=== PATIENT | male | born 1980 | race Caucasian/White ===

== ENCOUNTER → 2021-10-02 14:05 | Outpatient (BNVA) | payer MEDICAID, SELFPAY | PROVIDERS: Visit Provider Nurse Practitioner Family | DX: Z13.220 Encounter for screening for lipoid disorders (principal); R74.8 Abnormal levels of other serum enzymes; B19.20 Unspecified viral hepatitis C without hepatic coma; F15.11 Other stimulant abuse, in remission; Z87.898 Personal history of other specified conditions; Z86.79 Personal history of other diseases of the circulatory system | CPT/HCPCS: 80053; 80061; 80307; 85025; 86803; 87522; 87902 ==

== ENCOUNTER → 2021-10-04 10:22 | Outpatient (BNVA) | payer MEDICAID, SELFPAY | PROVIDERS: Referring Provider Nurse Practitioner Family; Visit Provider Anesthesiology Pain Medicine | DX: G89.29 Other chronic pain (principal); M47.816 Spondylosis without myelopathy or radiculopathy, lumbar region; M51.16 Intervertebral disc disorders with radiculopathy, lumbar region; F17.200 Nicotine dependence, unspecified, uncomplicated | CPT/HCPCS: 99204 ==

== ENCOUNTER 2021-10-18 11:15 | Outpatient (CLI) | payer MEDICAID, SELFPAY ==
--- NOTE | 2021-10-18 11:37 | XR_ITS ---
WS: [id number] LUMBAR SPINE TECHNIQUE: 5 views of the lumbar spine CLINICAL INFORMATION: SPONDYLOSIS WITHOUT MYELOPATHY OR RADICULOPATHY, BACK PAIN COMPARISON: None. FINDINGS: Disc space heights are well preserved. No compression fractures trace retrolisthesis L3 on L4 and L4 on L5. Disc space narrowing L4-L5 and L5-S1. Moderate facet arthropathy L5-S1 with bony foraminal tamara rowing. Retrolisthesis L5 on S1 measuring 5 mm. XR/XR lumbar spine min 4V [id number] IMPRESSION: 1. No acute compression fractures. 2. Mild disc space narrowing L4-5 and L5-S1. 3. Trace retrolisthesis L3 on L4 and L4 on L5. 4. 5 mm retrolisthesis L5 on S1 with moderate facet arthropathy.
== END 2021-10-18 11:16 | disposition home or self-care (01) ==
PROVIDERS: PCP Nurse Practitioner Family; Visit Provider Anesthesiology Pain Medicine
DX: M47.816 Spondylosis without myelopathy or radiculopathy, lumbar region (principal); M47.817 Spondylosis without myelopathy or radiculopathy, lumbosacral region
CPT/HCPCS: 72110

== ENCOUNTER → 2021-10-25 09:45 | Outpatient (BNVA) | payer MEDICAID, SELFPAY | PROVIDERS: PCP Nurse Practitioner Family; Visit Provider Anesthesiology Pain Medicine | DX: M51.16 Intervertebral disc disorders with radiculopathy, lumbar region (principal); M47.816 Spondylosis without myelopathy or radiculopathy, lumbar region; F17.200 Nicotine dependence, unspecified, uncomplicated; B18.2 Chronic viral hepatitis C | CPT/HCPCS: 82105; 86705; 86706; 87340; 99214 ==

== ENCOUNTER → 2021-11-15 13:06 | Outpatient (BNVA) | payer MEDICAID, SELFPAY | PROVIDERS: PCP Nurse Practitioner Family; Visit Provider Anesthesiology Pain Medicine | DX: M47.816 Spondylosis without myelopathy or radiculopathy, lumbar region (principal); F17.210 Nicotine dependence, cigarettes, uncomplicated | CPT/HCPCS: 64493; 64494; 64495; J3490 ==

== ENCOUNTER 2021-11-21 10:21 | Outpatient (CLI) | payer MEDICAID, SELFPAY ==
--- NOTE | 2021-11-21 10:15 | US_ITS ---
WS: [id number] ULTRASOUND ABDOMEN LIMITED CLINICAL INFORMATION: elevated liver enzymes hepatis c + COMPARISON: None. FINDINGS: Liver Size: Enlarged Craniocaudal length: 18.4 cm. Echogenicity: Coarse Surface nodularity: None. Mass (size and location): None. Normal main portal vein flow Bile ducts Intrahepatic ducts: Normal. Common bile duct diameter: 0.5 cm. Gallbladder Normal. Gallstones: None. Gallbladder sludge: None. Gallbladder wall thickening: None. Pericholecystic fluid: None. Sonographic Edwards sign: Absent. Pancreas Normal as visualized. Spleen Splenomegaly: None. Craniocaudal length: 10.5 cm. Right kidney: Normal. Hydronephrosis: None. Size: 11.9 cm x 5.6 cm x 5.5 cm. Abdominal aorta and IVC Visualized portions are normal. Ascites: None. US/US liver [id number] IMPRESSION: 1. Diffuse heterogeneous coarse hepatic echotexture with hepatomegaly. Recomme nd correlation with liver function tests. Findings suspicious for hepatocellula r disease. 2. Normal gallbladder and common bile duct. 3. No hydronephrosis in either kidney. 4. Spleen size is within normal limits measuring 10.5 cm [id number].
== END 2021-11-21 10:22 | disposition home or self-care (01) ==
LOC: RAD 10:22
PROVIDERS: PCP Nurse Practitioner Family; Visit Provider Nurse Practitioner Family
DX: R74.8 Abnormal levels of other serum enzymes (principal); B19.20 Unspecified viral hepatitis C without hepatic coma
CPT/HCPCS: 76705

== ENCOUNTER → 2022-01-02 14:37 | Outpatient (BNVA) | payer MEDICAID, SELFPAY | PROVIDERS: PCP Nurse Practitioner Family; Visit Provider Internal Medicine | DX: B18.2 Chronic viral hepatitis C (principal) | CPT/HCPCS: 80053; 87522 ==

== ENCOUNTER → 2022-03-22 10:05 | Outpatient (BNVA) | payer MEDICAID, SELFPAY | PROVIDERS: PCP Nurse Practitioner Family; Visit Provider Internal Medicine | DX: B18.2 Chronic viral hepatitis C (principal) | CPT/HCPCS: 87522 ==

== ENCOUNTER 2022-04-07 14:27 | Emergency (ER) | payer MEDICAID, SELFPAY ==
[2022-04-07 14:41] VITALS: BP 147/104; PULSE 106; RESP 16; TEMP 37.1; O2SAT 98
--- NOTE | 2022-04-07 15:53 | ED_ITS ---
HPI - Abdominal Pain General: Chief Complaint: Abdominal Pain Stated Complaint: Pain in left ADM Time Seen by Provider: 04/07/22 15:53 History of Present Illness: Mr. Hamlin is a 41-year-old gentleman with history of hepatitis C status post completion of therapy who presents to the emergency department due to right upper quadrant abdominal pain. He reports symptom onset a few months ago and has been intermittent however was previously mild. Over the past 3 days without specific known provoking event his symptoms have been much more severe. He endorses a fullness feeling in the right upper quadrant as well as generalized abdominal distention. He has generalized associated mal aise. Symptoms are worse with movement including bending over and deep inspiration. Denies pain this bad in the past. Denies signs of systemic illness. No other specific changes in health, exacerbating, or alleviating factors identified. 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 Family History Denies family history of CAD (coronary artery disease) Anesthesia complication Bleeding disorder Social History Smoking and tobacco status: current some day smoker cigarettes Alcohol intake: unknown Physical Exam Const: COMMON NORMALS: alert GENERAL APPEARANCE: cooperative and well developed HENMT: COMMON NORMALS: normocephalic and atraumatic HEAD & SCALP: normocephalic and atraumatic Eye: COMMON NORMALS: conjunctivae normal CONJUNCTIVA: Yes conjunctivae normal SCLERA: sclerae normal Neck/C-Spine: COMMON NORMALS: supple GENERAL: Yes trachea midline Resp: COMMON NORMALS: normal respiratory effort EFFORT & INSPECTION: Yes able to speak in complete sentences Cardio: COMMON NORMALS: regular rate and regular rhythm RATE: regular rate RHYTHM: regular rhythm GI: COMMON NORMALS: Soft to palpation PALPATION: Yes Soft to palpation, Yes Tenderness to palpation present (GI), No Guarding due to palpation present (GI), No Rigid due to palpation and Yes Hepatomegaly present PERCUSSION: normal to percussion Extremity: GENERAL: Yes normal exam except as noted and No edema Neuro: COMMON NORMALS: moves all extremities SENSORIUM/ORIENTATION: Yes alert and No Orientation impaired Psych: COMMON NORMALS: mental status grossly normal and Normal thought process present THOUGHT PROCESS: Normal thought process present Course ED course: - Patient was seen and evaluated by me at bedside - Patient placed on cardiac monitors, IV access obtained - Initial evaluation notable for exam as above. - Labs personally interpreted by me -Symptom treatment ordered - Labs notable for no leukocytosis, perhaps mild hemoconcentration. No acute electrolyte derangement. Transaminases are normal. Urinalysis not concerning for urinary tract infection. - Imaging notable for no lobar consolidation or pneumothorax on imaging. Ultrasound with hepatomegaly and hepatic steatosis - Upon serial reexamination after treatment the patient was improved - Based on patient history, evaluation, and testing as interpreted the most likely cause of the patient's condition is uncertain. Abdominal pain possibly secondary to hepatomegaly and hepatic steatosis as patient does have hepatomegaly on clinical exam. - The results of ED evaluation were discussed with the patient including prescriptions and/or symptomatic cares (if applicable) including appropriate and responsible use, followup plan, and return precautions. The patient verbalized understanding and felt safe for discharge. - Patient discharged in satisfactory condition. Note: Click bubbles or prepopulated ayala in note writing are used for assistance with data collection and billing and are inherently more limited than narrative and other text portions of this note. Please use narrative for additional clinical history and defer to narrative/free test for any case of contradictory information. If information appears in only free text or click bubble it should be considered present or absent as reported. Please contact note filing writer for clarifications of clinical information or contradictory information. MDM is a brief summary, contradictory or erroneous seeming information should be clarified and full note should be reviewed. Vital Signs: Vital signs: Vital Signs Temperature 98.7 F 04/07/22 14:41 Pulse Rate 102 H 04/07/22 19:10 Respiratory Rate 16 04/07/22 19:10 Blood Pressure 153/100 04/07/22 19:10 Pulse Oximetry 93 04/07/22 19:10 MDM - Abdominal Pain Medical Decision Making 41-year-old male presenting with right upper quadrant palpable mass with pain. Hepatomegaly present on exam. Ultrasound negative for other acute process. Labs without significant abnormality requiring hospitalization. Improved after treatment. Satisfactory for outpatient management and GI follow-up. Medical Records I reviewed the patient's medical records. Lab Data I reviewed the patient's lab results. : 04/07/22 17:01 04/07/22 17:01 Labs/Radiology: Radiology Impressions Abdomen Ultrasound 04/07/22 16:16 IMPRESSION: 1. Hepatomegaly and hepatic steatosis. 2. Otherwise no acute abnormalities. Chest X-Ray 04/07/22 16:16 IMPRESSION: No acute findings. Laboratory Results WBC 9.3 10^3/uL (4.0-10.0) 04/07/22 17:01 RBC 5.73 10^6/uL (4.1-5.3) H 04/07/22 17:01 Hgb 16.9 g/dL (11.7-16.6) H 04/07/22 17:01 Hct 49.2 % (42.0-52.0) 04/07/22 17:01 MCV 85.9 fl (80-94) 04/07/22 17:01 MCH 29.5 pg (28.0-34.0) 04/07/22 17:01 MCHC 34.3 g/dL (30.0-36.0) 04/07/22 17:01 RDW 12.5 % (12.1-15.1) 04/07/22 17:01 Plt Count 207 10^3/cmm (130-400) 04/07/22 17:01 MPV 11.3 fL (7.4-10.4) H 04/07/22 17:01 Neut % (Auto) 54.9 % 04/07/22 17:01 Lymph % (Auto) 33.8 % 04/07/22 17:01 [place] % (Auto) 9.3 % 04/07/22 17:01 Eos % (Auto) 1.6 % 04/07/22 17:01 Baso % (Auto) 0.2 % 04/07/22 17:01 Neut # (Auto) 5.09 10^3/uL (1.8-7.7) 04/07/22 17:01 Lymph # (Auto) 3.1 10^3/uL (0.8-4.8) 04/07/22 17:01 [place] # (Auto) 0.9 10^3/uL (0.2-0.9) 04/07/22 17:01 Eos # (Auto) 0.2 10^3/uL (0.0-0.8) 04/07/22 17:01 Baso # (Auto) 0.0 10^3/uL (0.0-0.1) 04/07/22 17:01 Nucleated RBC % (auto) 0 % 04/07/22 17: Nucleated RBCs # 0.0 /100WBC 04/07/22 17:01 Sodium 137 mmol/L (136-145) 04/07/22 17:01 Potassium 4.0 mmol/L (3.5-5.1) 04/07/22 17:01 Chloride 101 mmol/L (98-107) 04/07/22 17:01 Carbon Dioxide 23 mmol/L (22-29) 04/07/22 17:01 Anion Gap 17.0 (5-19) 04/07/22 17:01 BUN 21 mg/dL (6-20) H 04/07/22 17:01 Creatinine 0.9 mg/dL (0.7-1.2) 04/07/22 17:01 GFR Calculation 93.5 mL/min (90-130) 04/07/22 17:01 Glucose 221 mg/dL (65-115) H 04/07/22 17:01 Calculated Osmolality 294 mOsm/kg (285-295) 04/07/22 17:01 Calcium 10.3 mg/dL (8.5-10.5) 04/07/22 17:01 Total Bilirubin 0.3 mg/dL (0.15-1.2) 04/07/22 17:01 AST 33 U/L (0-40) 04/07/22 17:01 ALT 37 U/L (0-41) 04/07/22 17:01 Alkaline Phosphatase 88 IU/L (40-130) 04/07/22 17:01 NT-Pro-B Natriuret Pep 22 pg/mL (0-125) 04/07/22 17:01 Total Protein 7.8 g/dL (6.6-8.7) 04/07/22 17:01 Albumin 4.5 g/dL (3.5-5.2) 04/07/22 17:01 Globulin 3.3 g/dL (1.3-4.6) 04/07/22 17:01 Lipase 28 U/L (13-60) 04/07/22 17:01 Urine Color Yellow (Yellow) 04/07/22 18:15 Urine Appearance Turbid (CLEAR) 04/07/22 18:15 Urine pH 5 (5-7) 04/07/22 18:15 Ur Specific [place] 1.025 (1.005-1.030) 04/07/22 18:15 Urine Protein Trace (Negative) 04/07/22 18:15 Urine Glucose (UA) 1+ (Normal) H 04/07/22 18:15 Urine Ketones 1+ (Negative) H 04/07/22 18:15 Urine Blood Neg (Negative) 04/07/22 18:15 Urine Nitrate Negative (Negative) 04/07/22 18:15 Urine Bilirubin Neg (Negative) 04/07/22 18:15 Urine Urobilinogen Norm mg/dL (Negative) 04/07/22 18:15 Ur Leukocyte Esterase Negative (Negative) 04/07/22 18:15 Urine RBC 0-4 /hpf (0-2) H 04/07/22 18:15 Urine WBC 0-4 /hpf (0-5) H 04/07/22 18:15 Ur Squamous Epith Cells 0-4 /hpf (0-5) H 04/07/22 18:15 Amorphous Sediment 1+ /hpf 04/07/22 18:15 Urine Bacteria Trace /hpf (NONE) 04/07/22 18:15 Hyaline Casts 0-4 /lpf H 04/07/22 18:15 Urine Mucus 2+ /hpf 04/07/22 18:15 Discharge Plan Discharge Patient Disposition: Home Clinical Impression: Abdominal pain, Fatty liver Condition: Stable Prescriptions: New oxycodone 5 mg tablet 5 mg PO Q6H PRN (Reason: pain) Qty: 10 0RF No Action losartan 25 mg tablet 25 mg PO DAILY Qty: 30 5RF Discharge Orders: Discharge ED (Routine); Ordered 04/07/22 Ordered By: Skip Song Referrals: Arianne Krause FNP-C [Primary Care Provider] - Discharge Diet: Advance as tolerated and Clear Liquid Discharge Activity: Increase activity as tolerated Patient Instructions: Abdominal Pain (ED), Opioid Safety Activity Restrictions/Additional Instructions: Thank you for visiting the emergency department. You were seen and evaluated for abdominal pain. The exact cause of your symptoms is unclear, you do have a fatty liver which may explain some of the discomfort. Please follow-up with your primary care provider and GI. Please return to the emergency department for worsening symptoms or anything else that you are concerned about and feel needs emergency department evaluation. 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
--- NOTE | 2022-04-07 16:16 | XRR_ITS ---
PROCEDURE INFORMATION: Exam: XR Chest Exam date and time: 04/07/2022 4:52 PM Age: 41 years old Clinical indication: Pain; Right-sided; Additional info: Right lower chest pain, worse with inspiration TECHNIQUE: Imaging protocol: XR of the chest. Views: 1 view. COMPARISON: CR Chest 1 [place] [id number] 03/06/2019 12:05 AM FINDINGS: Lungs: Unremarkable. No consolidation. Pleural spaces: Unremarkable. No pleural effusion. No pneumothorax. Heart/Mediastinum: Unremarkable. No cardiomegaly. Bones/joints: Unremarkable. XR/XR chest 1V portable [id number] IMPRESSION: No acute findings.
--- NOTE | 2022-04-07 16:16 | USR_ITS ---
PROCEDURE INFORMATION: Exam: US Abdomen, Limited; Right Upper Quadrant Exam date and time: 04/07/2022 5:02 PM Age: 41 years old Clinical indication: Abdominal pain; Additional info: Ruq, HX hep c S/P treatment, increase pain, swelling TECHNIQUE: Imaging protocol: US abdomen. Real time ultrasound with image documentation. Limited exam focused on the right upper quadrant. COMPARISON: US liver [id number] 11/21/2021 10:40 AM FINDINGS: Liver: Heterogenous increased echogenicity is seen. Hepatomegaly is present the liver span is 19 cm. No masses. Gallbladder: Partially contracted. No gallstones. There is no gallbladder wall thickening. Biliary ducts: Normal. No stones. No dilation. Pancreas: Not visualized due to bowel gas. Right kidney: Normal. No mass. No hydronephrosis. 10.8 cm x 5.9 cm x 5 cm US/US abdomen limited [id number] IMPRESSION: 1. Hepatomegaly and hepatic steatosis. 2. Otherwise no acute abnormalities.
[2022-04-07 17:17] VITALS: RESP 18
[2022-04-07] MEDS: morphine 4 mg/mL SDV 1 mL IVP (17:17)
[2022-04-07 17:19] VITALS: BP 139/88; PULSE 104; RESP 18; O2SAT 95
[2022-04-07 17:33] LABS: Basophils % 0.2 %; Eosinophils # 0.2 10^3/uL (0.0-0.8); Eosinophils % 1.6 %; Hematocrit 49.2 % (42.0-52.0); Hemoglobin 16.9 g/dL (11.7-16.6); Lymphocytes # 3.1 10^3/uL (0.8-4.8); Lymphocytes % 33.8 %; Mean Corpuscular HGB Conc 34.3 g/dL (30.0-36.0); Mean Corpuscular Hemoglobin 29.5 pg (28.0-34.0); Mean Corpuscular Volume 85.9 fl (80-94); Mean Platelet Volume 11.3 fL (7.4-10.4); Monocytes # 0.9 10^3/uL (0.2-0.9); Monocytes % 9.3 %; Neutrophils # 5.09 10^3/uL (1.8-7.7); Neutrophils % 54.9 %; Nucleated Red Blood Cells % 0 %; Platelet Count 207 10^3/cmm (130-400); Red Blood Count 5.73 10^6/uL (4.1-5.3); Red Cell Distribution Width 12.5 % (12.1-15.1); White Blood Count 9.3 10^3/uL (4.0-10.0)
[2022-04-07 17:58] LABS: Alanine Aminotransferase 37 U/L (0-41); Albumin Level 4.5 g/dL (3.5-5.2); Alkaline Phosphatase 88 IU/L (40-130); Aspartate Amino Transferase 33 U/L (0-40); Blood Urea Nitrogen 21 mg/dL (6-20); Calcium 10.3 mg/dL (8.5-10.5); Carbon Dioxide 23 mmol/L (22-29); Chloride 101 mmol/L (98-107); Globulin 3.3 g/dL (1.3-4.6); Glomerular Filtration Rate 93.5 mL/min (90-130); Glucose 221 mg/dL (65-115); Lipase 28 U/L (13-60); NT Pro B Type Natriuretic Pept 22 pg/mL (0-125); Osmolality Calculated 294 mOsm/kg (285-295); Sodium 137 mmol/L (136-145); Total Bilirubin 0.3 mg/dL (0.15-1.2); Total Protein 7.8 g/dL (6.6-8.7)
[2022-04-07 18:20] VITALS: BP 134/73; PULSE 93; RESP 15; O2SAT 99
[2022-04-07 18:41] LABS: Add Urine Culture? No; Add Urine Microscopic? YES; Amorphous Sediment Urine 1+ /hpf; Bacteria Urine TRACE /hpf; Bilirubin Urine Neg (Negative); Blood Urine Neg (Negative); Glucose Urine UA 1+ (Normal); Hyaline Casts Urine 0-4 /lpf; Ketones Urine 1+ (Negative); Leukocyte Esterase Urine Negative (Negative); Mucus Urine 2+ /hpf; Nitrate Urine Negative (Negative); Protein Urine Trace (Negative); RBC Urine 0-4 /hpf (0-2); Specific Gravity, Urine 1.025 (1.005-1.030); Squamous Epithelial Cell Urine 0-4 /hpf (0-5); Urine Appearance Turbid (CLEAR); Urine Color Yellow (Yellow); Urobilinogen Urine Norm (Negative); WBC Urine 0-4 /hpf (0-5); pH Urine 5 (5-7)
[2022-04-07 19:10] VITALS: BP 153/100; PULSE 102; RESP 16; O2SAT 93
== END 2022-04-07 19:17 | disposition home or self-care (01) ==
PROVIDERS: Emergency Provider Emergency Medicine; PCP Nurse Practitioner Family
DX: K76.0 Fatty (change of) liver, not elsewhere classified (principal); R10.9 Unspecified abdominal pain; I10 Essential (primary) hypertension
CPT/HCPCS: 71045; 76705; 80053; 81001; 83690; 83880; 85025; 96374; 99284; J2270

== ENCOUNTER 2022-07-03 09:12 | Emergency (ER) | payer MEDICAID, SELFPAY ==
[2022-07-03 09:15] VITALS: BP 170/102; PULSE 88; RESP 16; TEMP 36.7; O2SAT 96; BMI 33.0
--- NOTE | 2022-07-03 09:30 | XR_ITS ---
WS: [id number] XR hand LT min 3V* [id number] REASON FOR EXAM: pain FINDINGS: Joint spaces the left hand are intact and well preserved. No fracture or focal bone lesion. No periosteal reaction. No soft tissue abnormality. XR/XR hand LT min 3V* [id number] IMPRESSION: No acute abnormality.
[2022-07-03] MEDS: tetanus-dipt-pertussis 0.5 mL SDV IM (10:08)
--- NOTE | 2022-07-03 10:12 | W.ED.EXTPRO ---
HPI - Extremity Problem General: Chief complaint: Extremity Injury, Upper Stated complaint: left hand injury Time Seen by Provider: 07/03/22 09:32 Source: patient Mode of arrival: ambulatory Limitations: no limitations History of Present Illness: 41-year-old male presents emergency room, left hand pain. Earlier in the week he had gotten a grease burn on the dorsum of his left hand had some blistering that was erupted spontaneously then at work he had a minor crush injury where a board fell on his hand is causing increasing swelling and pain is able to move all his fingers and he has normal sensation but is been increasingly uncomfortable. No other injury no previous surgery to that hand. 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 Patient's tetanus updated given a note for work and advised to follow-up with his primary care doctor regarding his blood pressure. Topical antibiotic ointment for the burn on the dorsum of the left hand. Medical Records I reviewed the patient's medical records. Lab Data I reviewed the patient's lab results. Radiology Impressions Hand X-Ray 07/03/22 09:30 IMPRESSION: No acute abnormality. Discharge Plan Discharge Patient Disposition: Home Clinical Impression: Burn of hand, left, second degree, Sprain of hand, left Condition: Stable Prescriptions: New diclofenac sodium 75 mg tablet,delayed release (DR/EC) 75 mg PO Q12H PRN (Reason: pain) Qty: 20 0RF mupirocin 2 % ointment 1 applic topical BID Qty: 22 0RF No Action hydrochlorothiazide 25 mg tablet 25 mg PO DAILY 30 Days Qty: 30 0RF amlodipine 5 mg tablet 5 mg PO DAILY lisinopril 20 mg tablet 20 mg PO DAILY 90 Days Qty: 90 0RF Discharge Orders: Discharge ED (Routine); Ordered 07/03/22 Ordered By: Drew Nichols Referrals: Arianne Krause FNP-C [Primary Care Provider] - Patient Instructions: Opioid Safety Activity Restrictions/Additional Instructions: Follow-up with your primary care doctor as needed. 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
== END 2022-07-03 10:20 | disposition home or self-care (01) ==
PROVIDERS: Emergency Provider Family Medicine; PCP Nurse Practitioner Family
DX: T23.202A Burn of second degree of left hand, unspecified site, initial encounter (principal); S63.92XA Sprain of unspecified part of left wrist and hand, initial encounter; I10 Essential (primary) hypertension; F17.210 Nicotine dependence, cigarettes, uncomplicated; X10.2XXA Contact with fats and cooking oils, initial encounter; Z23 Encounter for immunization; W20.8XXA Other cause of strike by thrown, projected or falling object, initial encounter
CPT/HCPCS: 73130; 90471; 90715; 99283

== ENCOUNTER 2022-09-09 09:35 | Emergency (ER) | payer MEDICAID, SELFPAY ==
[2022-09-09 09:38] VITALS: BP 190/112; PULSE 110; RESP 18; TEMP 36.8; O2SAT 100; BMI 33.6
--- NOTE | 2022-09-09 09:39 | ED_ITS ---
HPI - General Adult General: Chief complaint: Upper Respiratory Infection Stated complaint: Cough, fever Time Seen by Provider: 09/09/22 09:38 History of Present Illness: 41-year-old male with least 24 hours of cough nasal congestion and fevers. Multiple sick contacts including both young children. Patient notes he started to have sore throat over the last 24 hours. He notes sore throat is severe. Right greater than left. 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 He also notes intermittent fevers and chills. Is tolerating p.o. intake. No recent antibiotic use. 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 Family History Denies family history of CAD (coronary artery disease) Anesthesia complication Bleeding disorder Social History Smoking and tobacco status: current every day smoker cigarettes Alcohol intake: unknown Physical Exam Const: COMMON NORMALS: no acute distress, patient oriented x3 and alert GENERAL APPEARANCE: cooperative ORIENTATION/CONSCIOUSNESS: Yes awake, Yes oriented to person, Yes oriented to place and Yes oriented to time HENMT: COMMON NORMALS: normocephalic, atraumatic, external ears normal, Normal external nose present and moist oral mucous membranes HEAD & SCALP: normal to inspection, normocephalic and atraumatic NOSE: Normal external nose present GENERAL EAR: hearing grossly impaired EXTERNAL EAR: Yes external ears normal Eye: COMMON NORMALS: Equal, round and reactive pupils present, EOMs intact bilaterally, conjunctivae normal and no scleral icterus GENERAL EYE: appearance normal, both eyes and all related structures EYELID: eyelids normal CONJUNCTIVA: Yes conjunctivae normal SCLERA: sclerae normal PUPIL: Yes Equal, round and reactive pupils present Neck/C-Spine: COMMON NORMALS: full ROM, supple and no JVD GENERAL: Yes normal visual inspection Lymph: LYMPHATIC: no lymphadenopathy noted and no lymphedema noted Chest: COMMONS NORMALS: normal inspection of the chest Resp: COMMON NORMALS: normal respiratory effort, No retractions and No use of accessory muscles Cardio: COMMON NORMALS: no JVD, regular rate and regular rhythm RATE: regular rate RHYTHM: regular rhythm GI: COMMON NORMALS: Normal to inspection, nondistended, normoactive bowel sounds present : COMMON NORMALS: Yes no CVA tenderness BLADDER/KIDNEY EXAM: Yes no CVA tenderness Back/Pelvis: COMMON NORMALS: no CVA tenderness and thoracic and lumbar spine normal to inspection Extremity: COMMON NORMALS: normal to inspection, full ROM and capillary refill normal GENERAL: Yes normal exam except as noted Neuro: COMMON NORMALS: patient oriented x3, CN's II-XII intact bilaterally, moves all extremities, no focal motor deficits, no sensory deficits noted and gait normal SENSORIUM/ORIENTATION: Yes alert, Yes oriented to person, Yes oriented to place and Yes oriented to time Psych: COMMON NORMALS: mental status grossly normal, Normal thought process present, cooperative and normal affect THOUGHT PROCESS: Normal thought process present Skin: COMMON NORMALS: no rashes or lesions noted and no wounds GENERAL SKIN EXAM: no rashes or lesions noted Course Vital Signs: Vital signs: Vital Signs Temperature 98.3 F 09/09/22 09:38 Pulse Rate 88 09/09/22 12:01 Respiratory Rate 21 H 09/09/22 12:01 Blood Pressure 142/78 09/09/22 12:01 Pulse Oximetry 96 09/09/22 12:01 Oxygen Delivery Me thod 09/09/22 09:38 [facility] - General Adult Medical Decision Making 41-year-old male presenting today with URI-like symptoms. Multiple family sick contacts. Vitals within normal limits. Suspect viral illness. Respiratory viral panel sent. Patient will be called with results. Patient strep test is positive. We will treat patient with Augmentin as an outpatient. No evidence of TELEGRAPH REPEATER TECHNICIAN, RPA or other abnormalities on pharyngeal exam. Patient was given strict return precautions and recommended routine outpatient follow-up. Lab Data Laboratory Results Nasal Influ A H1 2009 PCR Not detected (NOT DETECT) 09/09/22 10:03 Adenovirus (PCR) Detected (NOT DETECT) A 09/09/22 10:03 C. pneumoniae DNA (PCR) Not detected (NOT DETECT) 09/09/22 10:03 Coronavirus 229E (PCR) Not detected (NOT DETECT) 09/09/22 10:03 Human Metapneumovir PCR Not detected (NOT DETECT) 09/09/22 10:03 Influenza A (H1) PCR Not detected (NOT DETECT) 09/09/22 10:03 Influenza A (H3) PCR Not detected (NOT DETECT) 09/09/22 10:03 Influenza Type A (PCR) Not detected (NOT DETECT) 09/09/22 10:03 Influenza Type B (PCR) Not detected (NOT DETECT) 09/09/22 10:03 M. pneumoniae (PCR) Not detected (NOT DETECT) 09/09/22 10:03 Parainfluenza 1 (PCR) Not detected (NOT DETECT) 09/09/22 10:03 Parainfluenza 2 (PCR) Not detected (NOT DETECT) 09/09/22 10:03 Parainfluenza 3 (PCR) Not detected (NOT DETECT) 09/09/22 10:03 Parainfluenza 4 (PCR) Not detected (NOT DETECT) 09/09/22 10:03 RSV Type A (PCR) Not detected (NOT DETECT) 09/09/22 10:03 RSV Type B (PCR) Not detected (NOT DETECT) 09/09/22 10:03 Entero/Rhino (PCR) Detected (NOT DETECT) A 09/09/22 10:03 SARS-CoV-2 (PCR) Not detected (NOT DETECT) 09/09/22 10:03 Group A Strep Rapid Positive (Negative) H 09/09/22 10:35 Discharge Plan Discharge Patient Disposition: Home Clinical Impression: Strep pharyngitis Condition: Stable Prescriptions: New diclofenac sodium 75 mg tablet,delayed release (DR/EC) 75 mg PO BID Qty: 30 0RF amoxicillin-pot clavulanate 875-125 mg tablet 1 tab PO Q12H Qty: 14 0RF No Action amlodipine 5 mg tablet 5 mg PO DAILY hydrochlorothiazide 25 mg tablet 25 mg PO DAILY 30 Days Qty: 30 2RF lisinopril 20 mg tablet 20 mg PO DAILY Qty: 30 2RF diclofenac sodium 75 mg tablet,delayed release (DR/EC) 75 mg PO Q12H PRN (Reason: pain) Qty: 20 0RF mupirocin 2 % ointment 1 applic topical BID Qty: 22 0RF Discharge Orders: Discharge ED (Routine); Ordered 09/09/22 Ordered By: Servando Garcia Referrals: Arianne Krause FNP-C [Primary Care Provider] - Patient Instructions: Strep Throat - Adult Stand Alone Forms: Work/School Release Coding Level of Care Code 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
[2022-09-09] MEDS: ketorolac 30 mg/mL INJ 15 MG IM (10:39)
[2022-09-09 10:55] LABS: Rapid Strep A Test Positive (Negative)
[2022-09-09 12:01] VITALS: BP 142/78; PULSE 88; RESP 21; O2SAT 96
[2022-09-09 12:20] LABS: Adenovirus Detected (NOT DETECT); Chlamydia Pneumoniae Not Detected (NOT DETECT); Coronavirus 229E,HKU1,NL63,OC4 Not Detected (NOT DETECT); Human Metapneumovirus Not Detected (NOT DETECT); Human Rhinovirus/Enterovirus Detected (NOT DETECT); Influenza A Not Detected (NOT DETECT); Influenza A H1 Not Detected (NOT DETECT); Influenza A H1-2009 Not Detected (NOT DETECT); Influenza A H3 Not Detected (NOT DETECT); Influenza B Not Detected (NOT DETECT); Mycoplasma Pneumoniae Not Detected (NOT DETECT); Parainfluenza Virus Type 1 Not Detected (NOT DETECT); Parainfluenza Virus Type 2 Not Detected (NOT DETECT); Parainfluenza Virus Type 3 Not Detected (NOT DETECT); Parainfluenza Virus Type 4 Not Detected (NOT DETECT); Respiratory Syncytial Virus A Not Detected (NOT DETECT); Respiratory Syncytial Virus B Not Detected (NOT DETECT); SARS-COV-2 Not Detected (NOT DETECT)
== END 2022-09-09 12:01 | disposition home or self-care (01) ==
PROVIDERS: Emergency Provider Emergency Medicine; PCP Nurse Practitioner Family
DX: J02.0 Streptococcal pharyngitis (principal); Z20.822 Contact with and (suspected) exposure to COVID-19; I10 Essential (primary) hypertension; F17.210 Nicotine dependence, cigarettes, uncomplicated
CPT/HCPCS: 87486; 87581; 87633; 87880; 96372; 99284; J1885

== ENCOUNTER → 2022-09-11 12:07 | Outpatient (BNVA) | payer MEDICAID, SELFPAY | PROVIDERS: PCP Nurse Practitioner Family; Visit Provider Nurse Practitioner Family | DX: I10 Essential (primary) hypertension (principal); B19.20 Unspecified viral hepatitis C without hepatic coma; R74.8 Abnormal levels of other serum enzymes; R50.9 Fever, unspecified; J02.0 Streptococcal pharyngitis; M47.816 Spondylosis without myelopathy or radiculopathy, lumbar region; J06.9 Acute upper respiratory infection, unspecified; Z13.220 Encounter for screening for lipoid disorders | CPT/HCPCS: 80053; 80061 ==

== ENCOUNTER 2023-01-01 17:37 | Emergency (ER) | payer MEDICAID, SELFPAY ==
--- NOTE | 2023-01-01 17:39 | XRR_ITS ---
PROCEDURE INFORMATION: Exam: XR Chest Exam date and time: 01/01/2023 5:53 PM Age: 42 years old Clinical indication: Pain; Chest pressure; Additional info: Cp TECHNIQUE: Imaging protocol: Radiologic exam of the chest. Views: 1 view. COMPARISON: CR XR chest 1V portable [id number] 04/07/2022 4:52 PM FINDINGS: Lungs: Lungs are clear without focal consolidation. Pleural spaces: Elevated left hemidiaphragm with blunting of the left lateral costophrenic angle unchanged likely related to scarring, unchanged. Heart/Mediastinum: Unremarkable. No cardiomegaly. Bones/joints: Unremarkable. XR/XR chest 1V portable [id number] IMPRESSION: No acute findings.
[2023-01-01 18:07] VITALS: BP 159/104; PULSE 81; RESP 16; TEMP 36.7; O2SAT 97; BMI 31.6
--- NOTE | 2023-01-01 18:46 | W.ED.SOB ---
HPI - SOB/Dyspnea General: Chief Complaint: Shortness of Breath/Dyspnea Stated Complaint: chest pain 4 days Time Seen by Provider: 01/01/23 18:45 History of Present Illness: HPI Narrative: Mr. Hamlin is a 42-year-old gentleman with history of obesity, hypertension, hepatitis C, history of substance abuse presenting to the emergency department for shortness of breath and chest discomfort. He reports last week having a GI illness however over the past 4 days he developed right anterior chest pain which is sharp and pleuritic in nature associated with shortness of breath cough. He also endorses generalized malaise and fevers. Intensity symptoms is moderate. Course has persisted. No other specific changes in health, exacerbating, or alleviating factors identified. 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 Family History Denies family history of CAD (coronary artery disease) Anesthesia complication Bleeding disorder Social History Smoking and tobacco status: never smoked Alcohol intake: unknown Physical Exam Const: COMMON NORMALS: alert GENERAL APPEARANCE: cooperative and well developed HENMT: COMMON NORMALS: normocephalic and atraumatic HEAD & SCALP: normocephalic and atraumatic Eye: COMMON NORMALS: conjunctivae normal CONJUNCTIVA: Yes conjunctivae normal SCLERA: sclerae normal Neck/C-Spine: COMMON NORMALS: supple GENERAL: Yes trachea midline Resp: COMMON NORMALS: clear to auscultation bilaterally EFFORT & INSPECTION: Yes able to speak in complete sentences AUSCULTATION: clear to auscultation bilaterally Cardio: COMMON NORMALS: regular rate and regular rhythm RATE: regular rate RHYTHM: regular rhythm GI: COMMON NORMALS: Soft to palpation PALPATION: Yes Soft to palpation and No Tenderness to palpation present (GI) Extremity: GENERAL: Yes normal exam except as noted and No edema Neuro: COMMON NORMALS: moves all extremities SENSORIUM/ORIENTATION: Yes alert and No Orientation impaired Psych: COMMON NORMALS: mental status grossly normal and Normal thought process present THOUGHT PROCESS: Normal thought process present Course Vital Signs: Vital signs: Vital Signs Temperature 98.0 F 01/01/23 18:07 Pulse Rate 75 01/01/23 21:25 Respiratory Rate 15 01/01/23 21:25 Blood Pressure 123/76 01/01/23 21:25 Pulse Oximetry 95 01/01/23 21:25 Oxygen Delivery Me thod 01/01/23 20:49 MDM - SOB/Dyspnea Medical Decision Making 42-year-old gentleman presenting with shortness of breath and chest pain. Chest pain is pleuritic in nature. Somewhat reproducible on exam. Patient exam as above. He is nontoxic in appearance. EKG notable for sinus rhythm, normal axis and intervals, no STEMI. Labs with improved mild leukocytosis compared to prior, normal electrolytes which are improved. Negative range 2-hour delta troponin. Negative viral studies. Patient is low risk by Wells/PERC. Chest x-ray with no lobar consolidation or pneumothorax. Patient does have likely sleep apnea with desaturation associated with sleep. Patient improved with analgesia, RT treatment, steroids. Most likely etiology of patient symptoms is multifactorial including exacerbation of underlying lung disease which will be treated in the outpatient setting. Patient is low risk by heart score. The results of ED evaluation were discussed with the patient including prescriptions and/or symptomatic cares (if applicable) including appropriate and responsible use, followup plan, and return precautions. The patient verbalized understanding and felt safe for discharge. Medical Records I reviewed the patient's medical records. Lab Data I reviewed the patient's lab results. 01/01/23 16:30 01/01/23 16:30 Labs/Radiology: Radiology Impressions Chest X-Ray 01/01/23 17:39 IMPRESSION: No acute findings. Laboratory Results WBC 12.8 10^3/uL (4.0-10.0) H 01/01/23 16:30 RBC 5.70 10^6/uL (4.1-5.3) H 01/01/23 16:30 Hgb 16.1 g/dL (11.7-16.6) 01/01/23 16:30 Hct 47.6 % (42.0-52.0) 01/01/23 16:30 MCV 83.5 fl (80-94) 01/01/23 16:30 MCH 28.2 pg (28.0-34.0) 01/01/23 16:30 MCHC 33.8 g/dL (30.0-36.0) 01/01/23 16:30 RDW 13.1 % (12.1-15.1) 01/01/23 16:30 Plt Count 211 10^3/cmm (130-400) 01/01/23 16:30 MPV 10.4 fL (7.4-10.4) 01/01/23 16:30 Neut % (Auto) 67.8 % 01/01/23 16:30 Lymph % (Auto) 24.6 % 01/01/23 16:30 [place] % (Auto) 6.1 % 01/01/23 16:30 Eos % (Auto) 1.0 % 01/01/23 16:30 Baso % (Auto) 0.2 % 01/01/23 16:30 Neut # (Auto) 8.66 10^3/uL (1.8-7.7) H 01/01/23 16:30 Lymph # (Auto) 3.2 10^3/uL (0.8-4.8) 01/01/23 16:30 [place] # (Auto) 0.8 10^3/uL (0.2-0.9) 01/01/23 16:30 Eos # (Auto) 0.1 10^3/uL (0.0-0.8) 01/01/23 16:30 Baso # (Auto) 0.0 10^3/uL (0.0-0.1) 01/01/23 16:30 Nucleated RBC % (auto) 0 % 01/01/23 16: Nucleated RBCs # 0.0 /100WBC 01/01/23 16:30 Sodium 141 mmol/L (136-145) 01/01/23 16:30 Potassium 3.7 mmol/L (3.5-5.1) 01/01/23 16:30 Chloride 101 mmol/L (98-107) 01/01/23 16:30 Carbon Dioxide 27 mmol/L (22-29) 01/01/23 16:30 Anion Gap 16.7 (5-19) 01/01/23 16:30 BUN 16 mg/dL (6-20) 01/01/23 16:30 Creatinine 0.7 mg/dL (0.7-1.2) 01/01/23 16:30 GFR Calculation 124.3 mL/min (90-130) 01/01/23 16:30 Glucose 91 mg/dL (65-115) 01/01/23 16:30 Calculated Osmolality 293 mOsm/kg (285-295) 01/01/23 16:30 Calcium 10.5 mg/dL (8.5-10.5) 01/01/23 16:30 Total Bilirubin 0.3 mg/dL (0.15-1.2) 01/01/23 16:30 AST 21 U/L (0-40) 01/01/23 16:30 ALT 22 U/L (0-41) 01/01/23 16:30 Alkaline Phosphatase 85 U/L (40-130) 01/01/23 16:30 Troponin T Baseline 11 ng/L (0-15) 01/01/23 16:30 Troponin T 120 Minute 10.92 ng/L (0-15) 01/01/23 19:18 Delta Troponin T -0.08 ABS# (0-10) L 01/01/23 19:18 Total Protein 7.8 g/dL (6.6-8.7) 01/01/23 16:30 Albumin 4.8 g/dL (3.5-5.2) 01/01/23 16:30 Globulin 3.0 g/dL (1.3-4.6) 01/01/23 16:30 Lipase 19 U/L (13-60) 01/01/23 17:40 Influenza Type A Ag negative (Negative) 01/01/23 19:21 Influenza Type B Ag negative (Negative) 01/01/23 19:21 SARS-CoV-2 Ag (Rapid) negative (Negative) 01/01/23 19:21 Discharge Plan Discharge Patient Disposition: Home Clinical Impression: Chest pain, Acute exacerbation of chronic obstructive airways disease, Apnea, sleep Condition: Stable Prescriptions: New albuterol sulfate 90 mcg/actuation HFA aerosol inhaler 2 inh inhalation Q4H PRN (Reason: shortness of breath or wheezing) Qty: 8.5 0RF oxycodone 5 mg tablet 5 mg PO Q4H PRN (Reason: pain) Qty: 4 0RF No Action amlodipine 5 mg tablet 5 mg PO DAILY penicillin V potassium 500 mg tablet 500 mg PO QID 7 Days Qty: 28 0RF hydrochlorothiazide 25 mg tablet 25 mg PO DAILY 30 Days Qty: 30 2RF lisinopril 20 mg tablet 20 mg PO DAILY Qty: 30 2RF mebendazole 100 mg tablet,chewable 100 mg PO ONCE Qty: 2 0RF Rx Instructions: 1 tab by mouth today; repeat in 14 days. Treat everyone in the home at the same time. diclofenac sodium 75 mg tablet,delayed release (DR/EC) 75 mg PO BID Qty: 30 0RF mupirocin 2 % ointment 1 applic topical BID Qty: 22 0RF Discharge Orders: Discharge ED (Routine); Ordered 01/01/23 Ordered By: Skip Song Referrals: Arianne Krause FNP-C [Primary Care Provider] - Discharge Diet: Usual diet Discharge Activity: Increase activity as tolerated Patient Instructions: Chest Pain (ED), COPD (Chronic Obstructive Pulmonary Disease) (ED), Opioid Safety, Obstructive Sleep Apnea Activity Restrictions/Additional Instructions: Thank you for visiting the emergency department. You were seen and evaluated for chest pain. The exact cause your symptoms is unclear however likely related to irritation of underlying lung in the context of smoking. I will prescribe a short course of pain medication, use this cautiously. You may use [id number] medications such as acetaminophen and ibuprofen for pain however please do not exceed the daily recommended dosage as listed on the packaging and please keep in mind that many namebrand medications contain the same active ingredients. Please avoid these medications if previously instructed to do so by another physician due to other underlying medical condition. I will prescribe steroids and antibiotics. Please also use your albuterol metered-dose inhaler 2 puffs every 4 hours for 24 hours followed by 2 puffs every 6 hours for 24 hours followed by 2 puffs every 8 hours for 24 hours and then return to the normal schedule. Please follow-up with your primary care provider. Return to the emergency department for uncontrolled symptoms or anything else that you are concerned about and feel needs emergency department evaluation. Coding Level of Care Code ED Program Paraprofessional for Edwige Huff
[2023-01-01 18:57] LABS: Basophils % 0.2 %; Eosinophils # 0.1 10^3/uL (0.0-0.8); Hematocrit 47.6 % (42.0-52.0); Hemoglobin 16.1 g/dL (11.7-16.6); Lymphocytes # 3.2 10^3/uL (0.8-4.8); Lymphocytes % 24.6 %; Mean Corpuscular HGB Conc 33.8 g/dL (30.0-36.0); Mean Corpuscular Hemoglobin 28.2 pg (28.0-34.0); Mean Corpuscular Volume 83.5 fl (80-94); Mean Platelet Volume 10.4 fL (7.4-10.4); Monocytes # 0.8 10^3/uL (0.2-0.9); Monocytes % 6.1 %; Neutrophils # 8.66 10^3/uL (1.8-7.7); Neutrophils % 67.8 %; Nucleated Red Blood Cells % 0 %; Platelet Count 211 10^3/cmm (130-400); Red Cell Distribution Width 13.1 % (12.1-15.1); White Blood Count 12.8 10^3/uL (4.0-10.0)
[2023-01-01 19:11] VITALS: RESP 15
[2023-01-01] MEDS: ketorolac 30 mg/mL INJ 15 MG IVP (19:11)
[2023-01-01] MEDS: morphine 4 mg/mL SDV 1 mL IVP (19:11)
[2023-01-01] MEDS: aspirin 81 mg Chew Tablet 324 MG PO (19:12)
[2023-01-01 19:18] LABS: Troponin(5th) Baseline 11 ng/L (0-15)
[2023-01-01 19:20] LABS: Alanine Aminotransferase 22 U/L (0-41); Albumin Level 4.8 g/dL (3.5-5.2); Alkaline Phosphatase 85 U/L (40-130); Anion Gap 16.7 (5-19); Aspartate Amino Transferase 21 U/L (0-40); Blood Urea Nitrogen 16 mg/dL (6-20); Calcium 10.5 mg/dL (8.5-10.5); Carbon Dioxide 27 mmol/L (22-29); Chloride 101 mmol/L (98-107); Glomerular Filtration Rate 124.3 mL/min (90-130); Glucose 91 mg/dL (65-115); Osmolality Calculated 293 mOsm/kg (285-295); Potassium 3.7 mmol/L (3.5-5.1); Sodium 141 mmol/L (136-145); Total Bilirubin 0.3 mg/dL (0.15-1.2); Total Protein 7.8 g/dL (6.6-8.7)
[2023-01-01 19:24] VITALS: BP 138/94; PULSE 85; RESP 16; O2SAT 100
[2023-01-01 19:32] LABS: Lipase 19 U/L (13-60)
--- NOTE | 2023-01-01 19:45 | ECG_ITS ---
[facility] Test Date: 2023-01-01 Pat Name: Isaias Hamlin Department: Room: Gender: Male Theoretical Physicist: : 1980 Requested By: Azam Arechiga Order Number: [id number] [place] MD: Paul Slaughter M.D. Measurements Intervals [place] Rate: 67 P: 46 MD: 200 QRS: 26 QRSD: 99 T: 48 QT: 382 QTc: 404 Interpretive Statements SINUS RHYTHM ST ELEVATION IN INFERIOR LEADS Compared to ECG 03/06/2019 00:21:37 No significant changes Electronically Signed On 01-01-2023 22:48:33 MARKETING AREA MANAGER by Paul Slaughter M.D. [email or web address] river [email or web address] [email or web address] memorial hospitalPantry/store/[id number]
[2023-01-01 20:00] LABS: Troponin 5 2HR 10.92 ng/L (0-15)
[2023-01-01 20:01] LABS: Influenza A by IFA negative (Negative); Influenza B by IFA negative (Negative); SARS Covid-2 Antigen negative (Negative)
[2023-01-01 20:02] LABS: Troponin 5 2HR Delta -0.08 ABS# (0-10)
[2023-01-01 20:38] VITALS: PULSE 72; RESP 16; O2SAT 98
[2023-01-01] MEDS: ipratropium-albuterol 3 mL Neb INHALATION (20:38)
[2023-01-01 20:49] VITALS: BP 129/85; PULSE 82; RESP 16; O2SAT 97
[2023-01-01 21:25] VITALS: BP 123/76; PULSE 75; RESP 15; O2SAT 95
== END 2023-01-01 21:26 | disposition home or self-care (01) ==
PROVIDERS: Emergency Medicine; Emergency Provider Emergency Medicine; PCP Nurse Practitioner Family
DX: R07.9 Chest pain, unspecified (principal); J44.1 Chronic obstructive pulmonary disease with (acute) exacerbation; G47.30 Sleep apnea, unspecified; Z20.822 Contact with and (suspected) exposure to COVID-19; I10 Essential (primary) hypertension
CPT/HCPCS: 36415; 71045; 80053; 83690; 84484; 85025; 87426; 87804; 93005; 96374; 96375; 99285; J1885; J2270; J2930

== ENCOUNTER 2023-01-29 16:30 | Outpatient (CLI) | payer MEDICAID, SELFPAY | END 2023-01-29 16:31 | disposition home or self-care (01) | LOC: SLEEP 01-30 09:40 | PROVIDERS: PCP Nurse Practitioner Family; Visit Provider Otolaryngology | DX: G47.33 Obstructive sleep apnea (adult) (pediatric) (principal) | CPT/HCPCS: G0399 ==

== ENCOUNTER 2023-02-26 13:17 | Emergency (ER) | payer MEDICAID, SELFPAY ==
[2023-02-26] VITALS (18 sets, daily range): BP systolic 113–144; BP diastolic 76–98; PULSE 64–106; RESP 8–31; TEMP 35.9; O2SAT 77–97; BMI 31.6
--- NOTE | 2023-02-26 13:41 | ECG_ITS ---
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 Measurements Intervals [place] Rate: 89 P: 152 WI: 180 QRS: -19 QRSD: 105 T: 149 QT: 339 QTc: 414 Interpretive Statements ECTOPIC ATRIAL RHYTHM LEFT ATRIAL ENLARGEMENT [-0.15mV P-WAVE IN V1/V2] INFERIOR MYOCARDIAL INFARCTION , PROBABLY OLD [40+ ms Q WAVE AND/OR ST/T ABNORMALITY IN II/aVF] Compared to ECG 01/01/2023 19:45:29 Ectopic atrial rhythm now present Atrial abnormality now present Myocardial infarct finding now present Sinus rhythm no longer present ST (T wave) deviation no longer present Electronically Signed On 02-26-2023 17:27:34 CDT by Paul Slaughter M.D. [id number]
--- NOTE | 2023-02-26 14:00 | W.ED.CHESTPA ---
HPI - Chest Pain General: Chief Complaint: Chest Pain Stated Complaint: Chest Pain Time Seen by Provider: 02/26/23 13:26 Source: patient Mode of arrival: ambulatory History of Present Illness: 42-year-old male presents to the emergency room with complaint of chest pain. He has had it for the last 5 days it is worse today's he has a history of endocarditis he previously had several years ago. States he has a feeling of impending doom. He admits to being anxious feels like he cannot take a deep breath. He has not had any fevers sweats or chills. No productive cough. Pain is reproducible with palpation across the left anterior chest wall. There is no radiation of pain. 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 This was related to previous IV drug use according to the discharge summary. MD complaint: chest pain Onset (ago): day(s) (5) Timing of current episode: constant Prior episodes: Yes Onset: during rest Pain location: substernal Pain radiation: none Severity: moderate Quality: sharp Relieving factors: nothing Exacerbating factors: nothing Associated symptoms: Deny abdominal pain, diaphoresis, dyspnea, fever(s), leg edema, nausea, palpitations, sense of impending doom, syncope or vomiting Treatment prior to arrival: none Review of Systems Const: Denies: fever(s), chills, fatigue, malaise or diaphoresis ENMT: Denies: throat pain, ear or mastoid pain, nasal discharge or nasal congestion Card: Reports: chest pain; Denies: palpitations, irregular heart rhythm, edema, swelling of feet/ankles or syncope Resp: Denies: dyspnea, productive cough, non-productive cough or wheezing GI: Denies: abdominal pain, nausea or vomiting : Denies: flank pain, dysuria, urinary frequency or urinary urgency Musc: Reports: extremity pain and extremity swelling; Denies: neck pain or back pain Skin/Breast: Denies: rash or pruritus PFSH ED PFSH: Medical History History of hypertension 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 Family History Denies family history of CAD (coronary artery disease) Anesthesia complication Bleeding disorder Social History Smoking and tobacco status: never smoked Alcohol intake: unknown Physical Exam Const: GENERAL APPEARANCE: cooperative and comfortable ORIENTATION/CONSCIOUSNESS: Yes awake, Yes oriented to person, Yes oriented to place and Yes oriented to time HENMT: COMMON NORMALS: normocephalic, atraumatic, hearing grossly normal bilaterally, external ears normal, EAC's normal, TM's normal bilaterally, Normal nasal mucous membranes and turbinates present, moist oral mucous membranes and oropharynx normal HEAD & SCALP: normocephalic and atraumatic NOSE: Normal nasal mucous membranes and turbinates present EXTERNAL EAR: Yes external ears normal EXTERNAL AUDITORY CANAL: EAC's normal TYMPANIC MEMBRANE: TM's normal bilaterally Eye: COMMON NORMALS: Equal, round and reactive pupils present, EOMs intact bilaterally, conjunctivae normal and no scleral icterus CONJUNCTIVA: Yes conjunctivae normal PUPIL: Yes Equal, round and reactive pupils present Neck/C-Spine: COMMON NORMALS: full ROM, no lymphadenopathy, supple and no JVD Lymph: LYMPHATIC: no lymphadenopathy noted and no lymphedema noted Resp: COMMON NORMALS: normal respiratory effort, No retractions, No use of accessory muscles and clear to auscultation bilaterally AUSCULTATION: clear to auscultation bilaterally Cardio: COMMON NORMALS: no JVD, regular rate, regular rhythm and No murmurs present (Cardio) RATE: regular rate RHYTHM: regular rhythm GI: COMMON NORMALS: Soft to palpation and No hepatosplenomegaly present AUSCULTATION: Yes normoactive bowel sounds PALPATION: Yes Soft to palpation, No Tenderness to palpation present (GI), No Guarding due to palpation present (GI) and Yes No hepatosplenomegaly present Extremity: COMMON NORMALS: normal to inspection, capillary refill normal, no clubbing, cyanosis or edema, no calf tenderness and no pedal edema Neuro: SENSORIUM/ORIENTATION: Yes oriented to person, Yes oriented to place and Yes oriented to time Skin: COMMON NORMALS: no rashes or lesions noted GENERAL SKIN EXAM: no rashes or lesions noted Course Vital Signs: Vital signs: Vital Signs Temperature 96.6 F L 02/26/23 13:26 Pulse Rate 77 02/26/23 17:30 Respiratory Rate 10 L 02/26/23 17:30 Blood Pressure 136/80 02/26/23 17:30 Pulse Oximetry 93 02/26/23 17:30 MDM - Chest Pain Medical Decision Making Labs imaging and EKG unremarkable. Suspect patient has a pleuritis. He has a mild elevated white count his symptoms are reproducible with deep inspiration but not with change in body position EKG no acute changes no findings suggestive of pericarditis.. Reviewed findings with the patient we will discharge patient home follow-up as needed. Patient previously did have endocarditis related to IV drug use he has been sober for the last several years. Medical Records I reviewed the patient's medical records. Lab Data I reviewed the patient's lab results. 02/26/23 13:45 02/26/23 13:45 Radiology Impressions Chest X-Ray 02/26/23 17:07 IMPRESSION: Unchanged exam. No active pulmonary disease. Laboratory Results WBC 12.3 10^3/uL (4.0-10.0) H 02/26/23 13:45 RBC 6.15 10^6/uL (4.1-5.3) H 02/26/23 13:45 Hgb 17.0 g/dL (11.7-16.6) H 02/26/23 13:45 Hct 49.7 % (42.0-52.0) 02/26/23 13:45 MCV 80.8 fl (80-94) 02/26/23 13:45 MCH 27.6 pg (28.0-34.0) L 02/26/23 13:45 MCHC 34.2 g/dL (30.0-36.0) 02/26/23 13:45 RDW 12.9 % (12.1-15.1) 02/26/23 13:45 Plt Count 239 10^3/cmm (130-400) 02/26/23 13:45 MPV 10.7 fL (7.4-10.4) H 02/26/23 13:45 Neut % (Auto) 69.4 % 02/26/23 13:45 Lymph % (Auto) 23.0 % 02/26/23 13:45 [place] % (Auto) 6.3 % 02/26/23 13:45 Eos % (Auto) 0.8 % 02/26/23 13:45 Baso % (Auto) 0.2 % 02/26/23 13:45 Neut # (Auto) 8.51 10^3/uL (1.8-7.7) H 02/26/23 13:45 Lymph # (Auto) 2.8 10^3/uL (0.8-4.8) 02/26/23 13:45 [place] # (Auto) 0.8 10^3/uL (0.2-0.9) 02/26/23 13:45 Eos # (Auto) 0.1 10^3/uL (0.0-0.8) 02/26/23 13:45 Baso # (Auto) 0.0 10^3/uL (0.0-0.1) 02/26/23 13:45 Nucleated RBC % (auto) 0 % 02/26/23 13:45 Nucleated RBCs # 0.0 /100WBC 02/26/23 13:45 Sodium 140 mmol/L (136-145) 02/26/23 13:45 Potassium 3.8 mmol/L (3.5-5.1) 02/26/23 13:45 Chloride 102 mmol/L (98-107) 02/26/23 13:45 Carbon Dioxide 24 mmol/L (22-29) 02/26/23 13:45 Anion Gap 17.8 (5-19) 02/26/23 13:45 BUN 18 mg/dL (6-20) 02/26/23 13:45 Creatinine 0.7 mg/dL (0.7-1.2) 02/26/23 13:45 GFR Calculation 124.3 mL/min (90-130) 02/26/23 13:45 Glucose 117 mg/dL (65-115) H 02/26/23 13:45 Calculated Osmolality 293 mOsm/kg (285-295) 02/26/23 13:45 Calcium 9.9 mg/dL (8.5-10.5) 02/26/23 13:45 Total Bilirubin 0.7 mg/dL (0.15-1.2) 02/26/23 13:45 AST 17 U/L (0-40) 02/26/23 13:45 ALT 17 U/L (0-41) 02/26/23 13:45 Alkaline Phosphatase 79 U/L (40-130) 02/26/23 13:45 Troponin T Baseline 10 ng/L (0-15) 02/26/23 13:45 Troponin T 120 Minute 9.99 ng/L (0-15) 02/26/23 15:18 Delta Troponin T -0.01 ABS# (0-10) L 02/26/23 15:18 NT-Pro-B Natriuret Pep 36 pg/mL (0-125) 02/26/23 13:45 Total Protein 8.0 g/dL (6.6-8.7) 02/26/23 13:45 Albumin 4.8 g/dL (3.5-5.2) 02/26/23 13:45 Globulin 3.2 g/dL (1.3-4.6) 02/26/23 13:45 Discharge Plan Discharge Patient Disposition: Home Clinical Impression: Chest pain, pleuritic Condition: Stable Prescriptions: New diclofenac sodium 75 mg tablet,delayed release (DR/EC) 75 mg PO Q12H PRN (Reason: pain) Qty: 20 0RF No Action hydrochlorothiazide 25 mg tablet 25 mg PO DAILY 30 Days Qty: 30 2RF lisinopril 20 mg tablet 20 mg PO DAILY Qty: 30 2RF albuterol sulfate 90 mcg/actuation HFA aerosol inhaler 2 inh inhalation Q4H PRN (Reason: shortness of breath or wheezing) Qty: 8.5 0RF Discharge Orders: Discharge ED (Routine); Ordered 02/26/23 Ordered By: Drew Nichols Referrals: Arianne Krause FNP-C [Primary Care Provider] - Discharge Diet: Usual diet Discharge Activity: Resume usual activity Patient Instructions: Opioid Safety, Pain Management Activity Restrictions/Additional Instructions: You are seen today for chest pain. Chest pain is consistent with pleuritic chest pain. It is worse when he take a deep breath. Chest x-ray did not show any pneumonia or pneumothorax. EKG and cardiac enzymes were negative. Will discharge home with anti-inflammatories 1 every 12 hours as needed if not improving or if any worsening or change symptoms she can return to the emergency room or follow-up with your primary care doctor. Coding Level of Care Code ED Powder Press Operator for Edwige Huff
[2023-02-26 14:03] LABS: Basophils % 0.2 %; Eosinophils # 0.1 10^3/uL (0.0-0.8); Eosinophils % 0.8 %; Hematocrit 49.7 % (42.0-52.0); Lymphocytes # 2.8 10^3/uL (0.8-4.8); Mean Corpuscular HGB Conc 34.2 g/dL (30.0-36.0); Mean Corpuscular Hemoglobin 27.6 pg (28.0-34.0); Mean Corpuscular Volume 80.8 fl (80-94); Mean Platelet Volume 10.7 fL (7.4-10.4); Monocytes # 0.8 10^3/uL (0.2-0.9); Monocytes % 6.3 %; Neutrophils # 8.51 10^3/uL (1.8-7.7); Neutrophils % 69.4 %; Nucleated Red Blood Cells % 0 %; Platelet Count 239 10^3/cmm (130-400); Red Blood Count 6.15 10^6/uL (4.1-5.3); Red Cell Distribution Width 12.9 % (12.1-15.1); White Blood Count 12.3 10^3/uL (4.0-10.0)
--- NOTE | 2023-02-26 14:19 | USCV_ITS ---
Isaias Hamlin Age: 42 Gender: M : 1980 Exam Date: 02/26/2023 14:52 Ordering Phys: Drew Nichols DO Technologist: PETERSON Exam Location: [facility] [place] Indication: LLE PAIN AND SWELLING HISTORY: Lower extremity swelling. Lower extremity pain. PROCEDURES: Venous duplex imaging was performed in only the left lower extremity. The following venous structures were evaluated: common femoral vein, profunda vein, proximal portion of the greater saphenous vein, superficial femoral vein, and the popliteal vein. In addition, the posterior tibial and peroneal trunk were evaluated. Serial compression, augmentation maneuvers, and spectral Doppler flow evaluation were performed. FINDINGS: Normal 2-D Doppler and augmentation and compressibility throughout the lower extremity venous structures. Additional imaging through the proximal calf veins also reveals no thrombus. Limited evaluation of the greater saphenous vein is patent with no thrombus. CONCLUSIONS No DVT left lower extremity. Dr. Ruchi Smith DO (Electronically Signed) Final Date: 26 February 2023 15:26 S
[2023-02-26 14:29] LABS: Troponin(5th) Baseline 10 ng/L (0-15)
[2023-02-26 14:38] LABS: Alanine Aminotransferase 17 U/L (0-41); Albumin Level 4.8 g/dL (3.5-5.2); Alkaline Phosphatase 79 U/L (40-130); Anion Gap 17.8 (5-19); Aspartate Amino Transferase 17 U/L (0-40); Blood Urea Nitrogen 18 mg/dL (6-20); Calcium 9.9 mg/dL (8.5-10.5); Carbon Dioxide 24 mmol/L (22-29); Chloride 102 mmol/L (98-107); Globulin 3.2 g/dL (1.3-4.6); Glomerular Filtration Rate 124.3 mL/min (90-130); Glucose 117 mg/dL (65-115); NT Pro B Type Natriuretic Pept 36 pg/mL (0-125); Osmolality Calculated 293 mOsm/kg (285-295); Potassium 3.8 mmol/L (3.5-5.1); Sodium 140 mmol/L (136-145); Total Bilirubin 0.7 mg/dL (0.15-1.2)
[2023-02-26 16:26] LABS: Troponin 5 2HR 9.99 ng/L (0-15)
[2023-02-26 16:27] LABS: Troponin 5 2HR Delta -0.01 ABS# (0-10)
--- NOTE | 2023-02-26 16:34 | ECG_ITS ---
[facility] Test Date: 2023-02-26 Pat Name: Iasias Hamlin Department: Room: Gender: Male Clinical Assistant: : 1980 Requested By: Drew Santana Order Number: [id number] [place] MD: Paul Slaughter M.D. Measurements Intervals [place] Rate: 73 P: 28 MT: 199 QRS: -5 QRSD: 90 T: 46 QT: 356 QTc: 392 Interpretive Statements SINUS RHYTHM Compared to ECG 02/26/2023 13:41:17 Ectopic atrial rhythm no longer present Atrial abnormality no longer present Myocardial infarct finding no longer present Electronically Signed On 02-26-2023 17:28:19 CDT by Paul Slaughter M.D. [email or web address] hospital [facility] [email or web address].Dragon Ports/store/OM/[id number]
--- NOTE | 2023-02-26 17:07 | XRR_ITS ---
PROCEDURE INFORMATION: Exam: XR Chest Exam date and time: 02/26/2023 5:13 PM Age: 42 years old Clinical indication: Pain; Chest pressure; Additional info: Dyspnea/cough TECHNIQUE: Imaging protocol: Radiologic exam of the chest. Views: 1 view. COMPARISON: CR XR chest 1V portable [id number] 01/01/2023 5:53 PM FINDINGS: Lungs: Unchanged reticulonodular densities are noted in the lung bases right greater than left. Pulmonary vascularity is within normal limits. No airspace consolidation. Pleural spaces: Unremarkable. No pleural effusion. No pneumothorax. Heart/Mediastinum: There is borderline cardiomegaly. Diaphragm: There is unchanged nonspecific elevation left hemidiaphragm. Bones/joints: No acute abnormality. XR/XR chest 1V portable [id number] IMPRESSION: Unchanged exam. No active pulmonary disease.
[2023-02-26] MEDS: morphine 4 mg/mL SDV 1 mL IVP (17:26)
[2023-02-26] MEDS: ondansetron 2 mg/ML SDV 2 mL 4 MG IVP (17:27)
== END 2023-02-26 17:40 | disposition home or self-care (01) ==
PROVIDERS: Emergency Provider Family Medicine; PCP Nurse Practitioner Family
DX: R09.1 Pleurisy (principal); I10 Essential (primary) hypertension
CPT/HCPCS: 71045; 80053; 83880; 84484; 85025; 93005; 93971; 96374; 96375; 99285; J2270; J2405

== ENCOUNTER 2023-02-27 17:38 | Emergency (ER) | payer MEDICAID, SELFPAY ==
--- NOTE | 2023-02-27 17:56 | ECG_ITS ---
[facility] Test Date: 2023-02-27 Pat Name: Isaias Hamlin Department: Room: Gender: Male Locks Inspector: : 1980 Requested By: Azam Arechiga Order Number: [id number] [place] MD: Kym Lake M.D. Measurements Intervals [place] Rate: 82 P: 52 SC: 179 QRS: 48 QRSD: 98 T: 45 QT: 343 QTc: 402 Interpretive Statements SINUS RHYTHM Compared to ECG 02/26/2023 16:34:43 No significant changes Electronically Signed On 02-28-2023 0:14:33 CDT by Kym Lake M.D. [email or web address]/[id number]
--- NOTE | 2023-02-27 17:56 | XRR_ITS ---
PROCEDURE INFORMATION: Exam: XR Chest Exam date and time: 02/27/2023 6:28 PM Age: 42 years old Clinical indication: Shortness of breath; Additional info: SOB TECHNIQUE: Imaging protocol: Radiologic exam of the chest. Views: 1 view. COMPARISON: CR (CHEST, ) 02/26/2023 5:13 PM FINDINGS: Lungs: Unremarkable. No consolidation. Pleural spaces: Unremarkable. No pleural effusion. No pneumothorax. Heart/Mediastinum: Unremarkable. No cardiomegaly. Diaphragm: Left diaphragmatic elevation again seen similar to prior exam. Bones/joints: Unremarkable. XR/XR chest 1V portable [id number] IMPRESSION: No acute findings.
[2023-02-27 18:02] VITALS: BMI 29.0
--- NOTE | 2023-02-27 18:07 | W.ED.SOB ---
HPI - SOB/Dyspnea General: Chief Complaint: Shortness of Breath/Dyspnea Stated Complaint: SOB, chest tightness Time Seen by Provider: 02/27/23 17:56 Source: patient Mode of arrival: ambulatory Limitations: no limitations History of Present Illness: HPI Narrative: 42-year-old male who has had a history of a blood clot in the past he states that he has been having chest pain or shortness of breath of the last 2 days he was seen here yesterday had normal troponins states he still feels like he cannot get a deep breath then and wants to get a CAT scan to make sure he does not have another PE denies any cough denies any fever denies any worsening improving factors. Associated symptoms: Reports chest pain; Deny abdominal pain, fever(s), nausea or vomiting Review of Systems Const: Denies: fever(s), chills, body aches or change in appetite Eyes: Denies: blurry vision or eye discomfort ENMT: Denies: throat pain or dental pain Card: Reports: chest pain Resp: Reports: dyspnea GI: Denies: abdominal pain, nausea, vomiting or diarrhea : Denies: dysuria Musc: Denies: neck pain or back pain Skin/Breast: Denies: rash Neuro: Denies: headache(s) Psych: Denies: depression Jose/Lymph: Denies: easy bruising All/Imm: Denies: urticaria PFSH ED PFSH: Medical History History of hypertension 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 Family History Denies family history of CAD (coronary artery disease) Anesthesia complication Bleeding disorder Social History Smoking and tobacco status: never smoked Alcohol intake: unknown Physical Exam Const: COMMON NORMALS: no acute distress, patient oriented x3 and healthy appearing HENMT: COMMON NORMALS: normocephalic and atraumatic HEAD & SCALP: normocephalic and atraumatic Eye: COMMON NORMALS: Equal, round and reactive pupils present and EOMs intact bilaterally PUPIL: Yes Equal, round and reactive pupils present Neck/C-Spine: COMMON NORMALS: full ROM and supple Chest: COMMONS NORMALS: normal inspection of the chest and normal palpation of entire chest wall Resp: COMMON NORMALS: normal respiratory effort, No retractions, No use of accessory muscles and clear to auscultation bilaterally AUSCULTATION: clear to auscultation bilaterally Cardio: COMMON NORMALS: regular rate, regular rhythm and No murmurs present (Cardio) RATE: regular rate RHYTHM: regular rhythm GI: COMMON NORMALS: Normal to inspection, nondistended, normoactive bowel sounds present, Soft to palpation, non-tender and no masses PALPATION: Yes Soft to palpation Extremity: COMMON NORMALS: normal to inspection and full ROM Neuro: COMMON NORMALS: patient oriented x3, moves all extremities and no focal motor deficits Psych: COMMON NORMALS: mental status grossly normal, Normal thought process present and cooperative THOUGHT PROCESS: Normal thought process present Skin: COMMON NORMALS: no rashes or lesions noted and no wounds GENERAL SKIN EXAM: no rashes or lesions noted Course Vital Signs: Vital signs: Vital Signs Pulse Rate 73 02/27/23 19:04 Respiratory Rate 19 H 02/27/23 19:04 Blood Pressure 110/71 02/27/23 19:04 Pulse Oximetry 94 02/27/23 19:04 Oxygen Delivery Me thod 02/27/23 18:26 MDM - SOB/Dyspnea Medical Decision Making Patient presents here with chest pain along with some dyspnea is worried about a PE his CTA is normal he had a work-up yesterday with normal troponins his troponin here is normal again he is stable for discharge he is to follow-up with PCP and return if worsening. Lab Data 02/27/23 18:20 02/27/23 18:50 Labs/Radiology: Radiology Impressions Chest X-Ray 02/27/23 17:56 IMPRESSION: No acute findings. Chest CTA 02/27/23 18:08 IMPRESSION: 1. No acute findings. Laboratory Results WBC 13.9 10^3/uL (4.0-10.0) H 02/27/23 18:20 RBC 6.06 10^6/uL (4.1-5.3) H 02/27/23 18:20 Hgb 17.4 g/dL (11.7-16.6) H 02/27/23 18:20 Hct 50.1 % (42.0-52.0) 02/27/23 18:20 MCV 82.7 fl (80-94) 02/27/23 18:20 MCH 28.7 pg (28.0-34.0) 02/27/23 18:20 MCHC 34.7 g/dL (30.0-36.0) 02/27/23 18:20 RDW 13.2 % (12.1-15.1) 02/27/23 18:20 Plt Count 224 10^3/cmm (130-400) 02/27/23 18:20 MPV 10.5 fL (7.4-10.4) H 02/27/23 18:20 Neut % (Auto) 63.9 % 02/27/23 18:20 Lymph % (Auto) 28.0 % 02/27/23 18:20 [place] % (Auto) 6.3 % 02/27/23 18:20 Eos % (Auto) 1.2 % 02/27/23 18:20 Baso % (Auto) 0.2 % 02/27/23 18:20 Neut # (Auto) 8.85 10^3/uL (1.8-7.7) H 02/27/23 18:20 Lymph # (Auto) 3.9 10^3/uL (0.8-4.8) 02/27/23 18:20 [place] # (Auto) 0.9 10^3/uL (0.2-0.9) 02/27/23 18:20 Eos # (Auto) 0.2 10^3/uL (0.0-0.8) 02/27/23 18:20 Baso # (Auto) 0.0 10^3/uL (0.0-0.1) 02/27/23 18:20 Nucleated RBC % (auto) 0 % 02/27/23 18: Nucleated RBCs # 0.0 /100WBC 02/27/23 18:20 PT 12.50 SECONDS (12.1-14.9) 02/27/23 18:50 INR 0.91 (0.8-1.2) 02/27/23 18:50 Sodium 139 mmol/L (136-145) 02/27/23 18:50 Potassium 3.5 mmol/L (3.5-5.1) 02/27/23 18:50 Chloride 104 mmol/L (98-107) 02/27/23 18:50 Carbon Dioxide 24 mmol/L (22-29) 02/27/23 18:50 Anion Gap 14.5 (5-19) 02/27/23 18:50 BUN 19 mg/dL (6-20) 02/27/23 18:50 Creatinine 0.7 mg/dL (0.7-1.2) 02/27/23 18:50 GFR Calculation 124.3 mL/min (90-130) 02/27/23 18:50 Glucose 96 mg/dL (65-115) 02/27/23 18:50 Calculated Osmolality 290 mOsm/kg (285-295) 02/27/23 18:50 Calcium 9.1 mg/dL (8.5-10.5) 02/27/23 18:50 Total Bilirubin 0.4 mg/dL (0.15-1.2) 02/27/23 18:50 AST 13 U/L (0-40) 02/27/23 18:50 ALT 15 U/L (0-41) 02/27/23 18:50 Alkaline Phosphatase 71 U/L (40-130) 02/27/23 18:50 Troponin T Baseline 12 ng/L (0-15) 02/27/23 18:50 Total Protein 7.0 g/dL (6.6-8.7) 02/27/23 18:50 Albumin 4.3 g/dL (3.5-5.2) 02/27/23 18:50 Globulin 2.7 g/dL (1.3-4.6) 02/27/23 18:50 EKG Data EKG 1: I personally reviewed and interpreted this EKG as follows: EKG Interpretation Date: 02/27/23 EKG interpretation time: 18:15 Interpretation: nsr hr [address] or t wave abnormalities qrs 98 qtc 382 EKG 2: I personally reviewed and interpreted this EKG as follows: EKG Interpretation Date: 02/27/23 EKG interpretation time: 19:55 Interpretation: nsr hr [address] or t wave abnormalities qrs 108 qtc 401 Discharge Plan Discharge Patient Disposition: Home Clinical Impression: Chest pain, Dyspnea Condition: Stable Prescriptions: No Action hydrochlorothiazide 25 mg tablet 25 mg PO DAILY 30 Days Qty: 30 2RF lisinopril 20 mg tablet 20 mg PO DAILY Qty: 30 2RF fluoxetine 20 mg capsule 20 mg PO DAILY Qty: 30 0RF diclofenac sodium 75 mg tablet,delayed release (DR/EC) 75 mg PO Q12H PRN (Reason: pain) Qty: 20 0RF albuterol sulfate 90 mcg/actuation HFA aerosol inhaler 2 inh inhalation Q4H PRN (Reason: shortness of breath or wheezing) Qty: 8.5 0RF Discharge Orders: Discharge ED (Routine); Ordered 02/27/23 Ordered By: Azam Arechiga Referrals: Arianne Krause FNP-C [Primary Care Provider] - Discharge Diet: Advance as tolerated Discharge Activity: Resume usual activity Patient Instructions: Chest Pain (ED), Dyspnea (ED) Coding Level of Care Code ED Photographic Process Attendant for Edwige Huff
--- NOTE | 2023-02-27 18:08 | CTR_ITS ---
PROCEDURE INFORMATION: Exam: CTA Chest With Contrast Exam date and time: 02/27/2023 7:28 PM Age: 42 years old Clinical indication: Shortness of breath; Additional info: SOB TECHNIQUE: Imaging protocol: Computed tomographic angiography of the chest with contrast. 3D rendering (Not supervised by radiologist): MIP and/or 3D reconstructed images were created by the technologist. Radiation optimization: All CT scans at this facility use at least one of these dose optimization techniques: automated exposure control; mA and/or kV adjustment per patient size (includes targeted exams where dose is matched to clinical indication); or iterative reconstruction. Contrast material: OMNI 350; Contrast volume: 100 ml; Contrast route: INTRAVENOUS (IV); REPORTING DATA: Count of CT and Cardiac NM exams in prior 12 months: This patient has received 0 known CTs and 0 known cardiac nuclear medicine studies in the 12 months prior to the current study. COMPARISON: CT angio chest [place] prot [id number] 01/03/2018 12:20 PM RADIATION DOSE METRICS: Total DLP (mGy-cm): 959.21 FINDINGS: Pulmonary arteries: Normal. No pulmonary emboli. Aorta: Unremarkable. No aortic aneurysm. No aortic dissection. Lungs: Stable benign 4 mm nodule along the right minor fissure. Mild atelectasis in the lower lobes. The lungs are otherwise clear. No consolidation. Pleural spaces: Unremarkable. No pneumothorax. No pleural effusion. Heart: Unremarkable. No cardiomegaly. No pericardial effusion. Lymph nodes: Unremarkable. No enlarged lymph nodes. Diaphragm: Mild elevation of the left diaphragm. Bones/joints: Unremarkable. No acute fracture. Soft tissues: Unremarkable. CT/CT angio chest PE protcl [id number] IMPRESSION: 1. No acute findings.
[2023-02-27 18:25] VITALS: BP 129/87; PULSE 82; O2SAT 99
[2023-02-27 18:26] VITALS: PULSE 83; RESP 16; O2SAT 95
[2023-02-27] MEDS: albuterol 2.5 mg/3 mL Neb INHALATION (18:27)
[2023-02-27 18:29] VITALS: PULSE 86
[2023-02-27 18:34] LABS: Basophils % 0.2 %; Eosinophils # 0.2 10^3/uL (0.0-0.8); Eosinophils % 1.2 %; Hematocrit 50.1 % (42.0-52.0); Hemoglobin 17.4 g/dL (11.7-16.6); Lymphocytes # 3.9 10^3/uL (0.8-4.8); Mean Corpuscular HGB Conc 34.7 g/dL (30.0-36.0); Mean Corpuscular Hemoglobin 28.7 pg (28.0-34.0); Mean Corpuscular Volume 82.7 fl (80-94); Mean Platelet Volume 10.5 fL (7.4-10.4); Monocytes # 0.9 10^3/uL (0.2-0.9); Monocytes % 6.3 %; Neutrophils # 8.85 10^3/uL (1.8-7.7); Neutrophils % 63.9 %; Nucleated Red Blood Cells % 0 %; Platelet Count 224 10^3/cmm (130-400); Red Blood Count 6.06 10^6/uL (4.1-5.3); Red Cell Distribution Width 13.2 % (12.1-15.1); White Blood Count 13.9 10^3/uL (4.0-10.0)
[2023-02-27] MEDS: LORazepam 2 mg/mL INJ 1 mL 0.5 MG IVP (18:36)
[2023-02-27 19:04] VITALS: BP 110/71; PULSE 73; RESP 19; O2SAT 94
[2023-02-27 19:32] LABS: Troponin(5th) Baseline 12 ng/L (0-15)
[2023-02-27 19:33] LABS: Alanine Aminotransferase 15 U/L (0-41); Albumin Level 4.3 g/dL (3.5-5.2); Alkaline Phosphatase 71 U/L (40-130); Anion Gap 14.5 (5-19); Aspartate Amino Transferase 13 U/L (0-40); Blood Urea Nitrogen 19 mg/dL (6-20); Calcium 9.1 mg/dL (8.5-10.5); Carbon Dioxide 24 mmol/L (22-29); Chloride 104 mmol/L (98-107); Creatinine Clr Calc Pharmacy 172.5743; Globulin 2.7 g/dL (1.3-4.6); Glomerular Filtration Rate 124.3 mL/min (90-130); Glucose 96 mg/dL (65-115); Osmolality Calculated 290 mOsm/kg (285-295); Potassium 3.5 mmol/L (3.5-5.1); Sodium 139 mmol/L (136-145); Total Bilirubin 0.4 mg/dL (0.15-1.2)
[2023-02-27] MEDS: iohexol 350 mg/mL 500 mL Btl (per mL) IV (19:41)
[2023-02-27 19:52] LABS: INR 0.91 (0.8-1.2)
--- NOTE | 2023-02-27 19:55 | ECG_ITS ---
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 Measurements Intervals [place] Rate: 68 P: 17 AL: 172 QRS: 10 QRSD: 108 T: 58 QT: 384 QTc: 410 Interpretive Statements SINUS RHYTHM Compared to ECG 02/27/2023 18:15:47 No significant changes Electronically Signed On 02-28-2023 0:24:57 CDT by Kym Lake M.D. [id number]
[2023-02-27 20:56] VITALS: BP 127/81; PULSE 76; RESP 20; O2SAT 98
[2023-02-27 20:58] LABS: Troponin 5 2HR 11.93 ng/L (0-15)
[2023-02-27 21:10] LABS: Troponin 5 2HR Delta 0.07 ABS# (0-10)
== END 2023-02-27 20:58 | disposition home or self-care (01) ==
PROVIDERS: Emergency Provider Emergency Medicine; PCP Nurse Practitioner Family
DX: R07.9 Chest pain, unspecified (principal); R06.00 Dyspnea, unspecified; I10 Essential (primary) hypertension
CPT/HCPCS: 36415; 71045; 71275; 80053; 84484; 85025; 85610; 93005; 94640; 96374; 99285; J2060; J7613; Q9967

== ENCOUNTER → 2023-04-18 12:30 | Outpatient (BNVA) | payer MEDICAID, SELFPAY | PROVIDERS: PCP Family Medicine; Visit Provider Internal Medicine | DX: R07.9 Chest pain, unspecified (principal) | CPT/HCPCS: 93005 ==

== ENCOUNTER 2023-05-09 14:46 | Outpatient (CLI) | payer MEDICAID, SELFPAY ==
--- NOTE | 2023-05-09 15:00 | USCV_ITS ---
Isaias Hamlin Age: 42 Gender: M : 1980 Exam Date: 05/09/2023 14:59 Ordering Phys: Paul Slaughter M.D ([email or web address]) Technologist: Luis Adame Exam Location[place] [facility] [place] Indication: chest pain sob BP: 130 / 65 HR: 80 Rhythm: Sinus Technical Quality: Adequate MEASUREMENTS (Male / Female) Normal Values 2D ECHO LV Diastolic Diameter PLAX 3.3 cm 4.2 - 5.9 / 3.9 - 5.3 cm LV Systolic Diameter PLAX 2.4 cm IVS Diastolic Thickness 2.3 cm 0.6 - 1.0 / 0.6 - 0.9 cm IVS Systolic Thickness 2.3 cm LVPW Diastolic Thickness 1.0 cm 0.6 - 1.0 / 0.6 - 0.9 cm LVPW Systolic Thickness 1.3 cm LVOT Diameter 2.1 cm LV Ejection Fraction 2D Teich 53.3 % LV Ejection Fraction MOD 2C 75.3 % LV Ejection Fraction 2C AL 76.8 % LA Diameter 4.1 cm IVC Diameter 1.3 cm M-MODE Aortic Annulus Diameter 3.9 cm LA Ao Ratio MM 1.1 MV E Point Septal Separation 0.7 cm DOPPLER AV Peak Velocity 131.0 cm/s LVOT Peak Velocity 113.0 cm/s AV Area Cont Eq vti 3.0 cm squared AV Area Cont Eq pk 2.9 cm squared MV Area PHT 5.5 cm squared Mitral E to A Ratio 1.1 MV E' Velocity 50.5 cm/s Mitral E to MV E' Ratio 8.3 Mitral E to LV E' Lateral Ratio 8.4 Mitral E to LV E' Septal Ratio 8.1 TR Peak Velocity 240.3 cm/s TR Peak Gradient 23.1 mmHg TV Peak E Velocity 158.0 cm/s Right Atrial Pressure 3.0 mmHg Pulmonary Artery Systolic Pressu 26.1 mmHg RV Acceleration Time 0.2 s FINDINGS Left Ventricle Left ventricle is normal in size. LV systolic function is normal with EF of 55 to 60%. No regional wall motion abnormalities are seen. Right Ventricle Normal in size and function Right Atrium Normal in size Left Atrium Normal in size Mitral Valve Structurally normal mitral valve. Trace mitral regurgitation. Aortic Valve Structurally normal aortic valve. No significant stenosis or regurgitation. Tricuspid Valve Not well visualized. Trace tricuspid regurgitation. Pulmonary artery systolic pressure is normal. Pulmonic Valve Not well visualized Pericardium Normal Aorta Normal in size IVC Appears to be normal CONCLUSIONS LV systolic function is normal with EF 55 to 60%. Trace mitral regurgitation Trace tricuspid regurgitation Compared to prior echocardiogram from 2018, no significant changes are seen. Tricuspid valve is not well visualized so accurate comparison not possible. Paul Slaughter MD (Electronically Signed) Final Date: 16 May 2023 11:49 S
== END 2023-05-09 14:47 | disposition home or self-care (01) ==
LOC: RAD 14:49
PROVIDERS: PCP Family Medicine; Visit Provider Internal Medicine
DX: R07.9 Chest pain, unspecified (principal); R06.02 Shortness of breath
CPT/HCPCS: 93306

== ENCOUNTER 2023-05-13 11:38 | Outpatient (CLI) | payer MEDICAID, SELFPAY ==
--- NOTE | 2023-05-13 | ECG_ITS ---
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 Interpretive Statements NAME OF STUDY: TREADMILL STRESS TEST INDICATION: [CP/SOB, ] EXERCISE DATA: The patient was exercised by Damian protocol. Baseline heart rate was 76 beats per minute. Baseline blood pressure was 139/80 millimeters of mercury. Target heart rate was 152 beats per minute. Maximum heart rate achieved was 157, which was 103% of the target heart rate. Maximum blood pressure was 199/103 millimeters of mercury. Total exercise time was 4 minutes 1 second. Maximum METs achieved was 7. The reason for ending the test was maximal effort achieved. ELECTROCARDIOGRAM: BASELINE: Showed sinus rhythm, normal axis, no significant ST-T changes at the baseline noted. [] EXERCISE: At the peak exercise level, [] No significant ST-T changes suggestive of ischemia noted. [] RECOVERY: During the recovery period, heart rate dropped appropriately. No significant ST-T changes in the recovery suggestive of ischemia noted. [] CONCLUSION: 1. Exercise capacity is fair 2. Heart rate response was appropriate 3. Blood pressure response was hypertensive 4. Stress test is negative for ischemia Electronically Signed On 05-16-2023 12:27:32 CDT by Paul Slaughter M.D. [email or web address]
[2023-05-13 11:47] VITALS: BMI 30.7
[2023-05-13 12:27] VITALS: BP 154/106; PULSE 92
== END 2023-05-13 11:39 | disposition home or self-care (01) ==
LOC: CDL 11:39
PROVIDERS: PCP Family Medicine; Visit Provider Internal Medicine
DX: R07.9 Chest pain, unspecified (principal); R06.02 Shortness of breath
CPT/HCPCS: 93017

== ENCOUNTER 2023-06-10 20:00 | Outpatient (CLI) | payer MEDICAID, SELFPAY | END 2023-06-10 20:01 | disposition home or self-care (01) | LOC: SLEEP 06-11 04:04 | PROVIDERS: PCP Family Medicine; Visit Provider Otolaryngology | DX: G47.33 Obstructive sleep apnea (adult) (pediatric) (principal) | CPT/HCPCS: 95811 ==

== ENCOUNTER 2023-07-27 14:16 | Emergency (ER) | payer MEDICAID, SELFPAY ==
[2023-07-27 14:29] VITALS: BP 162/88; PULSE 85; RESP 18; TEMP 36.6; O2SAT 98; BMI 30.9
--- NOTE | 2023-07-27 14:34 | XRR_ITS ---
PROCEDURE INFORMATION: Exam: XR Chest Exam date and time: 07/27/2023 2:52 PM Age: 42 years old Clinical indication: Pain; Chest pressure; Additional info: Cp SOB TECHNIQUE: Imaging protocol: Radiologic exam of the chest. Views: 1 view. COMPARISON: CR XR chest 1V portable [id number] 02/27/2023 6:28 PM FINDINGS: Lungs: Unremarkable. No consolidation. Pleural spaces: Unremarkable. No pleural effusion. No pneumothorax. Heart/Mediastinum: Unremarkable. No cardiomegaly. Bones/joints: Unremarkable. XR/XR chest 1V portable [id number] IMPRESSION: No acute findings.
--- NOTE | 2023-07-27 14:37 | ECG_ITS ---
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 Measurements Intervals [place] Rate: 71 P: 15 MN: 204 QRS: 57 QRSD: 105 T: 14 QT: 359 QTc: 390 Interpretive Statements SINUS RHYTHM Compared to ECG 04/18/2023 12:37:23 Early repolarization no longer present Electronically Signed On 07-28-2023 9:29:21 CDT by Paul Slaughter M.D. [id number]
--- NOTE | 2023-07-27 14:51 | ED_ITS ---
HPI - Chest Pain General: Chief Complaint: Chest Pain Stated Complaint: sob, body feels tingly, weakness Time Seen by Provider: 07/27/23 14:19 History of Present Illness: Isaias Ibarra is a 42-year-old man that presents to the emergency department with feelings of anxiousness, chest pain, shortness of breath, tingling throughout body. Rapid onset just prior to arrival. Patient states that he was on his way to the park to play with his kids. They stopped at [employer] to picking supervisor pizza and on his way out the door developed these feelings of anxiousness, shortness of breath and tingling all over his body. He got in the car with his and said to come to the emergency department immediately. Patient said on his way to the emergency department he developed chest pain. 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 reports that they have been clear for 2 years. patient reports he has been struggling with anxiety. Has significant concerns that he has irreparable damage to heart and lungs from previous drug use. Patient at bedside reports that he has been anxious more than usual. Patient is currently treated for high blood pressure and anxiety/depression. Patient does use tobacco/nicotine products. He reports he has been smoking more heavily than usual Associated symptoms: Deny abdominal pain, dyspnea, fever(s), nausea, palpitations or vomiting Review of Systems General: Reports: 10 or more systems reviewed and unremarkable except in HPI and below Const: Denies: fever(s), chills, change in appetite, change in weight, fatigue or malaise Eyes: Denies: change in vision, eye discomfort, eye discharge or eye redness ENMT: Denies: throat pain, enlarged tonsils, odynophagia, hoarseness, ear or mastoid pain, ear discharge, change in hearing, tinnitus, nasal discharge, nasal congestion, post nasal drip or sinus pain Card: Reports: chest pain, lightheadedness, dyspnea on exertion and orthopnea; Denies: palpitations, irregular heart rhythm, edema or leg pain with exertion Resp: Denies: dyspnea, productive cough, non-productive cough, wheezing, stridor or chest congestion GI: Denies: abdominal pain, nausea, vomiting, dysphagia, diarrhea, constipation, bloating, GI cramping or hematochezia : Denies: flank pain, dysuria, urinary frequency, urinary urgency, urinary hesitancy, oliguria or hematuria Musc: Denies: neck pain, back pain, extremity pain, joint pain, joint swellin g, joint redness, joint warmth or muscle weakness Skin/Breast: Denies: rash, pruritus, erythema, photosensitivity or new lesions Neuro: Reports: headache(s) and numbness in extremities; Denies: weakness in extremities, sensory changes, lack of coordination, difficulty walking, frequent falls, dizziness, confusion, Slurred speech present, difficulty communicating thoughts, seizure-like activity or involuntary movements Endo: Denies: polyuria, polydipsia or tired all the time Jose/Lymph: Denies: easy bruising or easy bleeding PFSH ED PFSH: Medical History History of hypertension 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 Family History Denies family history of CAD (coronary artery disease) Anesthesia complication Bleeding disorder Social History Smoking and tobacco status: never smoked Alcohol intake: unknown Substance/Drug Use: unknown Physical Exam Const: COMMON NORMALS: no acute distress, patient oriented x3 and alert GENERAL APPEARANCE: cooperative ORIENTATION/CONSCIOUSNESS: Yes awake, Yes oriented to person, Yes oriented to place and Yes oriented to time HENMT: COMMON NORMALS: normocephalic and atraumatic HEAD & SCALP: normocephalic and atraumatic FACE & SINUS: normal facial exam MOUTH: Normal oral and palatal mucosa present THROAT: posterior oropharynx normal Eye: COMMON NORMALS: Equal, round and reactive pupils present, EOMs intact bilaterally, conjunctivae normal and no scleral icterus GENERAL EYE: appearance normal, both eyes and all related structures ALIGNMENT: Yes alignment normal PERIORBITAL: periorbital findings normal CONJUNCTIVA: Yes conjunctivae normal PUPIL: Yes Equal, round and reactive pupils present Neck/C-Spine: COMMON NORMALS: full ROM GENERAL: Yes normal visual inspection Lymph: LYMPHATIC: no lymphadenopathy noted Chest: COMMONS NORMALS: normal inspection of the chest Breast/axilla inspection: Yes no chest deformity, asymmetry, normal contours, no nodules, masses, tenderness Resp: COMMON NORMALS: normal respiratory effort, No retractions, No use of accessory muscles and clear to auscultation bilaterally EFFORT & INSPECTION: Yes able to speak in complete sentences and Yes symmetric chest movement AUSCULTATION: clear to auscultation bilaterally Cardio: COMMON NORMALS: regular rate, regular rhythm, S1 normal heart sound present, S2 normal heart sound present and Peripheral pulses 2+ throughout RATE: regular rate RHYTHM: regular rhythm HEART SOUNDS: S1 normal heart sound present, S2 normal heart sound present and Murmur heart sound present c ontinuous Location: apex and left sternal border Radiation: to the left axilla Characteristics: blowing PERIPHERAL PULSES: Peripheral pulses 2+ throughout GI: COMMON NORMALS: Normal to inspection, nondistended, normoactive bowel sounds present, Soft to palpation, non-tender and No hepatosplenomegaly present INSPECTION: Yes normal to inspection AUSCULTATION: Yes normoactive bowel sounds PALPATION: Yes Soft to palpation and Yes No hepatosplenomegaly present RECTAL EXAM: Yes deferred OTHER: Patient has documented tricuspid and mitral valve regurgitation Extremity: COMMON NORMALS: normal to inspection GENERAL: Yes normal exam except as noted Neuro: COMMON NORMALS: patient oriented x3 SENSORIUM/ORIENTATION: Yes alert, Yes oriented to person, Yes oriented to place and Yes oriented to time CRANIAL NERVES: Yes CN normal except as noted Psych: COMMON NORMALS: mental status grossly normal, Normal thought process present, cooperative, activity/motor behavior normal, denies homicidal ideation and denies suicidal ideation THOUGHT PROCESS: Normal thought process present Skin: COMMON NORMALS: no rashes or lesions noted, no wounds and turgor normal GENERAL SKIN EXAM: no rashes or lesions noted and turgor normal Course Vital Signs: Vital signs: Vital Signs Temperature 97.9 F 07/27/23 14:29 Pulse Rate 76 07/27/23 16:24 Respiratory Rate 18 07/27/23 14:29 Blood Pressure 127/71 07/27/23 16:24 Pulse Oximetry 97 07/27/23 16:24 Oxygen Delivery Me thod Room Air 07/27/23 16:24 MDM - Chest Pain Medical Decision Making Patient was evaluated in the emergency department with a complaint of chest pain. Upon my evaluation differential diagnosis would include AMI, pneumonia, anxiety. Patient does have a history of all 3. We obtained a chest x-ray which revealed no acute finding. We obtained laboratory studies revealed no leukocytosis, electrolyte abnormalities, abnormal kidney or liver function, no anemias, and no urinary tract infection. Urine drug screen was positive for marijuana but no other substances. Patient did respond favorably to the Ativan and was given 324 mg of aspirin. I reviewed findings with patient and have advised him to follow-up with his primary care doctor, his quality project manager, and his goldsmith apprentice. At this time no further diagnostics are warranted. He is stable and reports he feels better. Lab Data 07/27/23 14:50 07/27/23 14:50 Radiology Impressions Chest X-Ray 07/27/23 14:34 IMPRESSION: No acute findings. Laboratory Results WBC 10.60 10^3/uL (3.29-11.43) 07/27/23 14:50 RBC 5.36 10^6/uL (3.85-5.65) 07/27/23 14:50 Hgb 15.30 g/dL (11.27-16.99) 07/27/23 14:50 Hct 44.6 % (37-53) 07/27/23 14:50 MCV 83.2 fl (82-101) 07/27/23 14:50 MCH 28.5 pg (27-33) 07/27/23 14:50 MCHC 34.3 g/dL (30-55) 07/27/23 14:50 RDW 13.0 % (12.1-15.1) 07/27/23 14:50 Plt Count 191 10^3/cmm (157-399) 07/27/23 14:50 MPV 10.5 fL (7.4-10.4) H 07/27/23 14:50 Neut % (Auto) 51.9 % 07/27/23 14:50 Lymph % (Auto) 35.8 % 07/27/23 14:50 Isabella % (Auto) 8.4 % 07/27/23 14:50 Eos % (Auto) 3.2 % 07/27/23 14:50 Baso % (Auto) 0.3 % 07/27/23 14:50 Neut # (Auto) 5.50 10^3/uL (1.8-7.7) 07/27/23 14:50 Lymph # (Auto) 3.8 10^3/uL (0.8-4.8) 07/27/23 14:50 Isabella # (Auto) 0.9 10^3/uL (0.2-0.9) 07/27/23 14:50 Eos # (Auto) 0.3 10^3/uL (0.0-0.8) 07/27/23 14:50 Baso # (Auto) 0.0 10^3/uL (0.0-0.1) 07/27/23 14:50 Nucleated RBC % (auto) 0 % 07/27/23 14:50 Nucleated RBCs # 0.0 /100WBC 07/27/23 14:50 Sodium 138 mmol/L (136-145) 07/27/23 14:50 Potassium 3.8 mmol/L (3.5-5.1) 07/27/23 14:50 Chloride 102 mmol/L (98-107) 07/27/23 14:50 Carbon Dioxide 25 mmol/L (22-29) 07/27/23 14:50 Anion Gap 14.8 (5-19) 07/27/23 14:50 BUN 16 mg/dL (6-20) 07/27/23 14:50 Creatinine 0.9 mg/dL (0.7-1.2) 07/27/23 14:50 GFR Calculation 93.0 mL/min (90-130) 07/27/23 14:50 Glucose 106 mg/dL (65-115) 07/27/23 14:50 Calculated Osmolality 288 mOsm/kg (285-295) 07/27/23 14:50 Calcium 9.6 mg/dL (8.5-10.5) 07/27/23 14:50 Total Bilirubin 0.4 mg/dL (0.15-1.2) 07/27/23 14:50 AST 20 U/L (0-40) 07/27/23 14:50 ALT 22 U/L (0-41) 07/27/23 14:50 Alkaline Phosphatase 68 U/L (40-130) 07/27/23 14:50 Troponin T Baseline 13 ng/L (0-15) 07/27/23 14:50 Troponin T 120 Minute 12.45 ng/L (0-15) 07/27/23 16:33 NT-Pro-B Natriuret Pep 36 pg/mL (0-125) 07/27/23 14:50 Total Protein 7.3 g/dL (6.6-8.7) 07/27/23 14:50 Albumin 4.5 g/dL (3.5-5.2) 07/27/23 14:50 Globulin 2.8 g/dL (1.3-4.6) 07/27/23 14:50 Urine Color Yellow (Yellow) 07/27/23 15:45 Urine Appearance Clear (CLEAR) 07/27/23 15:45 Urine pH 6 (5-7) 07/27/23 15:45 Ur Specific Clark 1.015 (1.005-1.030) 07/27/23 15:45 Urine Protein Neg (Negative) 07/27/23 15:45 Urine Glucose (UA) Norm (Normal) 07/27/23 15:45 Urine Ketones Negative (Negative) 07/27/23 15:45 Urine Blood Neg (Negative) 07/27/23 15:45 Urine Nitrate Negative (Negative) 07/27/23 15:45 Urine Bilirubin Neg (Negative) 07/27/23 15:45 Urine Urobilinogen Norm mg/dL (Negative) 07/27/23 15:45 Ur Leukocyte Esterase Negative (Negative) 07/27/23 15:45 Urine Opiates Screen Negative ng/mL (Negative) 07/27/23 15:45 Ur Barbiturates Screen Negative ng/mL (Negative) 07/27/23 15:45 Ur Phencyclidine Scrn Negative ng/mL (Negative) 07/27/23 15:45 Ur Amphetamines Screen Negative ng/mL (Negative) 07/27/23 15:45 U Benzodiazepines Scrn Negative ng/mL (Negative) 07/27/23 15:45 Urine Cocaine Screen Negative ng/mL (Negative) 07/27/23 15:45 U Marijuana (THC) Screen Positive ng/mL (Negative) H 07/27/23 15:45 Other Data Date of Service: 05/09/23 Procedure(s): CV. echo complete* [id number] ?CONCLUSIONS ?LV systolic function is normal with EF 55 to 60%. ?Trace mitral regurgitation ?Trace tricuspid regurgitation ?Compared to prior echocardiogram from 2018, no significant ?changes are seen. Tricuspid valve is not well visualized so ?accurate comparison not possible. Date of Service: 05/13/23 Procedure(s): Cardiac Stress Test Request Accession Number(s): [id number] Report Number: [id number] ? [facility] ? Test Date:? ? 2023-05-13 Pat Name: ? ? Isaias Hamlin ? Department: ? Patient ID: ? [id number] ? Room: ? Gender: ? ? ? Male ? 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 :? 1980 ? Requested By: Paul Slaughter Order Number: [id number]? Reading MD: ? Paul Slaughter M.Gabrielle ? Interpretive Statements NAME OF STUDY: TREADMILL STRESS TEST INDICATION: [CP/SOB, ] EXERCISE DATA: The patient was exercised by Damian protocol. Baseline heart rate was 76 beats per minute. Baseline blood pressure was 139/80 millimeters of mercury. Target heart rate was 152 beats per minute. Maximum heart rate achieved was 157, which was 103% of the target heart rate. Maximum blood pressure was 199/103 millimeters of mercury. Total exercise time was 4 minutes 1 second. Maximum METs achieved was 7. The reason for ending the test was maximal effort achieved. ELECTROCARDIOGRAM: BASELINE: Showed sinus rhythm, normal axis,? no significant ST-T changes at the baseline noted. [] EXERCISE: At the peak exercise level, [] No significant ST-T changes suggestive of ischemia noted. [] RECOVERY: During the recovery period, heart rate dropped appropriately. No significant ST-T changes in the recovery suggestive of ischemia noted. [] CONCLUSION: 1. Exercise capacity is fair 2. Heart rate response was appropriate 3. Blood pressure response was hypertensive 4. Stress test is negative for ischemia Discharge Plan Discharge Patient Disposition: Home Clinical Impression: Anxiety, Chest pain Condition: Stable Prescriptions: No Action clonazepam 0.5 mg tablet 0.5 mg PO BID Qty: 60 2RF BC Pain Relief 845-65 mg Powder In Packet 1 ea PO Q6H PRN (Reason: Pain) Men's Multivitamin 400-20-300 mcg Tablet 1 tab PO QPM lisinopril 10 mg tablet 10 mg PO QPM hydrochlorothiazide 25 mg tablet 25 mg PO QPM Lexapro 10 mg tablet 10 mg PO QPM albuterol sulfate 90 mcg/actuation HFA aerosol inhaler 2 inh inhalation Q4H PRN (Reason: shortness of breath or wheezing) Qty: 8.5 0RF Discharge Orders: Discharge ED (Routine); Ordered 07/27/23 Ordered By: Sharon Osborne Referrals: Delilah Murrieta MD [Primary Care Provider] - Discharge Diet: Advance as tolerated Discharge Activity: Resume usual activity Patient Instructions: Chest Pain (ED), Anxiety (ED), Pain Management Activity Restrictions/Additional Instructions: As discussed, please follow-up with your primary care doctor pulmonology and car diology team members this week. He is return to the emergency department for new concerning or worsening symptoms Coding Level of Care Code ED Sack Lifter for Edwige Huff
[2023-07-27] MEDS: LORazepam 2 mg/mL INJ 1 mL IVP (14:54)
[2023-07-27] MEDS: sodium chloride 0.9% 500 ML 999 ML IV (14:54)
[2023-07-27] MEDS: aspirin 81 mg Chew Tablet 324 MG PO (14:57)
[2023-07-27 14:59] LABS: Basophils % 0.3 %; Eosinophils # 0.3 10^3/uL (0.0-0.8); Eosinophils % 3.2 %; Hematocrit 44.6 % (37-53); Lymphocytes # 3.8 10^3/uL (0.8-4.8); Lymphocytes % 35.8 %; Mean Corpuscular HGB Conc 34.3 g/dL (30-55); Mean Corpuscular Hemoglobin 28.5 pg (27-33); Mean Corpuscular Volume 83.2 fl (82-101); Mean Platelet Volume 10.5 fL (7.4-10.4); Monocytes # 0.9 10^3/uL (0.2-0.9); Monocytes % 8.4 %; Neutrophils % 51.9 %; Nucleated Red Blood Cells % 0 %; Platelet Count 191 10^3/cmm (157-399); Red Blood Count 5.36 10^6/uL (3.85-5.65)
[2023-07-27 15:20] LABS: Troponin(5th) Baseline 13 ng/L (0-15)
[2023-07-27 15:35] LABS: Alanine Aminotransferase 22 U/L (0-41); Albumin Level 4.5 g/dL (3.5-5.2); Alkaline Phosphatase 68 U/L (40-130); Anion Gap 14.8 (5-19); Aspartate Amino Transferase 20 U/L (0-40); Blood Urea Nitrogen 16 mg/dL (6-20); Calcium 9.6 mg/dL (8.5-10.5); Carbon Dioxide 25 mmol/L (22-29); Chloride 102 mmol/L (98-107); Globulin 2.8 g/dL (1.3-4.6); Glucose 106 mg/dL (65-115); NT Pro B Type Natriuretic Pept 36 pg/mL (0-125); Osmolality Calculated 288 mOsm/kg (285-295); Potassium 3.8 mmol/L (3.5-5.1); Sodium 138 mmol/L (136-145); Total Bilirubin 0.4 mg/dL (0.15-1.2); Total Protein 7.3 g/dL (6.6-8.7)
[2023-07-27 15:59] LABS: Add Urine Microscopic? NO; Charge for UA Resulting for Rev
[2023-07-27 16:06] LABS: Urine Appearance Clear (CLEAR); Urine Color Yellow (Yellow)
[2023-07-27 16:07] LABS: Bilirubin Urine Neg (Negative); Blood Urine Neg (Negative); Glucose Urine UA Norm (Normal); Ketones Urine Negative (Negative); Leukocyte Esterase Urine Negative (Negative); Nitrate Urine Negative (Negative); Protein Urine Neg (Negative); Specific Gravity, Urine 1.015 (1.005-1.030); Urobilinogen Urine Norm (Negative); pH Urine 6 (5-7)
[2023-07-27 16:10] LABS: Amphetamines Screen Urine Negative (Negative); Barbiturates Screen Urine Negative (Negative); Benzodiazepines Screen Urine Negative (Negative); Cocaine Screen Urine Negative (Negative); Opiate Screen Urine Negative (Negative); PCP Screen Urine Negative (Negative); THC Screen Urine Positive (Negative)
[2023-07-27 16:24] VITALS: BP 127/71; PULSE 76; O2SAT 97
[2023-07-27 17:30] VITALS: BP 117/76; PULSE 64; O2SAT 97
[2023-07-27 17:30] LABS: Troponin 5 2HR 12.45 ng/L (0-15); Troponin 5 2HR Delta -0.55 ABS# (0-10)
== END 2023-07-27 17:40 | disposition home or self-care (01) ==
PROVIDERS: Emergency Provider Nurse Practitioner; PCP Family Medicine
DX: R07.9 Chest pain, unspecified (principal); F41.9 Anxiety disorder, unspecified; I10 Essential (primary) hypertension
CPT/HCPCS: 36415; 71045; 80053; 80306; 81003; 83880; 84484; 85025; 93005; 96361; 96374; 99285; J2060; J7040

== ENCOUNTER 2023-10-19 08:39 | Emergency (ER) | payer MEDICAID, SELFPAY ==
--- NOTE | 2023-10-19 08:41 | ECG_ITS ---
[facility] Test Date: 2023-10-19 Pat Name: Isaias Hamlin Department: Room: Gender: Male Director Of Pulmonary Unit: : 1980 Requested By: Gui Osullivan Order Number: [id number] [place] MD: Herber Carter M.D. Measurements Intervals George Rate: 91 P: 44 GA: 180 QRS: -15 QRSD: 93 T: 45 QT: 330 QTc: 406 Interpretive Statements SINUS RHYTHM POSSIBLE LEFT ATRIAL ENLARGEMENT [-0.1mV P-WAVE IN V1/V2] Compared to ECG 07/27/2023 14:37:47 No significant changes Electronically Signed On 10-19-2023 13:50:36 SPORT INTERN by Herber Carter M.D. [id number]
--- NOTE | 2023-10-19 08:43 | XRR_ITS ---
PROCEDURE INFORMATION: Exam: XR Chest Exam date and time: 10/19/2023 9:03 AM Age: 42 years old Clinical indication: Pain; Chest pressure; Prior surgery; Surgery date: 6+ months; Surgery type: Lung; Additional info: Chest pain TECHNIQUE: Imaging protocol: Radiologic exam of the chest. Views: 1 view. COMPARISON: 1. CR XR chest 1V portable [id number] 02/27/2023 6:28 PM 2. CR XR chest 1V portable [id number] 07/27/2023 2:52 PM FINDINGS: Lungs: Unremarkable. No consolidation. Pleural spaces: Unremarkable. No pleural effusion. No pneumothorax. Heart/Mediastinum: Unremarkable. No cardiomegaly. Diaphragm: Stable asymmetric elevation of the left hemidiaphragm. Bones/joints: Unremarkable. XR/XR chest 1V portable [id number] IMPRESSION: No acute findings.
[2023-10-19 08:44] VITALS: BP 151/96; PULSE 90; RESP 18; O2SAT 95; BMI 30.9
--- NOTE | 2023-10-19 09:01 | ED_ITS ---
HPI - Chest Pain 2 General: Chief Complaint: Chest Pain Stated Complaint: reported chest pain Time Seen by Provider: 10/19/23 08:42 History of Present Illness: Patient presents to the ER with complaints of intermittent chest pain and his heart racing for about the last 2 weeks. About a week ago he went to. The doctor diagnosed with bronchitis but he says his cough is getting worse sometimes wraps around his ribs. He rates pain an 8 out of 10 when it happens. Patient says it is worse when he takes a big deep breath or coughs. Review of Systems 2 General: Reports: 10 or more systems reviewed and unremarkable except in HPI and below PFSH ED 2 PFSH: Medical History History of hypertension 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 Family History Denies family history of CAD (coronary artery disease) Anesthesia complication Bleeding disorder Social History Smoking and tobacco/nicotine status: never used tobacco/nicotine Alcohol intake: unknown Substance/Drug Use: unknown Physical Exam 2 Const: COMMON NORMALS: no acute distress, average body habitus, patient oriented x3, no limitations, healthy appearing, alert and well nourished HENMT: COMMON NORMALS: normocephalic, atraumatic, hearing grossly normal bilaterally, external ears normal, Normal external nose present, moist oral mucous membranes and oropharynx normal HEAD & SCALP: normocephalic and atraumatic NOSE: Normal external nose present EXTERNAL EAR: Yes external ears normal Neck/C-Spine: COMMON NORMALS: full ROM, no lymphadenopathy, supple, no meningeal signs, no JVD and Thyroid normal THYROID: Thyroid normal Lymph: LYMPHATIC: no lymphadenopathy noted Chest: COMMONS NORMALS: normal inspection of the chest and normal palpation of entire chest wall Resp: COMMON NORMALS: normal respiratory effort, No retractions, No use of accessory muscles and clear to auscultation bilaterally AUSCULTATION: clear to auscultation bilaterally Cardio: COMMON NORMALS: no JVD GI: COMMON NORMALS: Normal to inspection, nondistended, normoactive bowel sounds present, Soft to palpation, non-tender, No hepatosplenomegaly present and no masses PALPATION: Yes Soft to palpation and Yes No hepatosplenomegaly present Neuro: COMMON NORMALS: patient oriented x3 SENSORIUM/ORIENTATION: Yes alert MENINGEAL SIGNS: Yes no meningeal signs Course 2 Vital Signs: Vital signs: Vital Signs Pulse Rate 90 10/19/23 08:44 Respiratory Rate 18 10/19/23 08:44 Blood Pressure 151/96 10/19/23 08:44 Pulse Oximetry 95 10/19/23 08:44 Oxygen Delivery Me thod Room Air 10/19/23 08:44 MDM - Chest Pain Medical Decision Making Patient presents with having coughing intermittent chest pain for the last week. Patient was worked up in a standard chest pain fashion with serial EKGs, and lab work and chest x-ray, all of which was essentially benign. Is felt the patient is more likely than not a chest wall type pain. Patient will be placed on prednisone and Tessalon Perles and instructed to follow-up with his family practice physician. Differential Diagnosis Unlikely acute massive pulmonary embolism, acute respiratory failure, acute myocardial infarction, cardiac arrest or sudden cardiac Medical Records I reviewed the patient's medical records. Lab Data I reviewed the patient's lab results. 10/19/23 09:12 10/19/23 09:12 Radiology Impressions Chest X-Ray 10/19/23 08:43 IMPRESSION: No acute findings. Laboratory Results WBC 11.28 10^3/uL (3.29-11.43) 10/19/23 09:12 RBC 5.76 10^6/uL (3.85-5.65) H 10/19/23 09:12 Hgb 16.60 g/dL (11.27-16.99) 10/19/23 09:12 Hct 48.5 % (37-53) 10/19/23 09:12 MCV 84.2 fl (82-101) 10/19/23 09:12 MCH 28.8 pg (27-33) 10/19/23 09:12 MCHC 34.2 g/dL (30-55) 10/19/23 09:12 RDW 13.0 % (12.1-15.1) 10/19/23 09:12 Plt Count 232 10^3/cmm (157-399) 10/19/23 09:12 MPV 10.1 fL (7.4-10.4) 10/19/23 09:12 Neut % (Auto) 61.2 % 10/19/23 09:12 Lymph % (Auto) 28.5 % 10/19/23 09:12 [place] % (Auto) 5.9 % 10/19/23 09:12 Eos % (Auto) 3.6 % 10/19/23 09:12 Baso % (Auto) 0.4 % 10/19/23 09:12 Neut # (Auto) 6.90 10^3/uL (1.8-7.7) 10/19/23 09:12 Lymph # (Auto) 3.2 10^3/uL (0.8-4.8) 10/19/23 09:12 [place] # (Auto) 0.7 10^3/uL (0.2-0.9) 10/19/23 09:12 Eos # (Auto) 0.4 10^3/uL (0.0-0.8) 10/19/23 09:12 Baso # (Auto) 0.0 10^3/uL (0.0-0.1) 10/19/23 09:12 Nucleated RBC % (auto) 0 % 10/19/23 09:12 Nucleated RBCs # 0.0 /100WBC 10/19/23 09:12 Sodium 138 mmol/L (136-145) 10/19/23 09:12 Potassium 4.3 mmol/L (3.5-5.1) 10/19/23 09:12 Chloride 103 mmol/L (98-107) 10/19/23 09:12 Carbon Dioxide 22 mmol/L (22-29) 10/19/23 09:12 Anion Gap 17.3 (5-19) 10/19/23 09:12 BUN 17 mg/dL (6-20) 10/19/23 09:12 Creatinine 0.8 mg/dL (0.7-1.2) 10/19/23 09:12 GFR Calculation 106.5 mL/min (90-130) 10/19/23 09:12 Glucose 126 mg/dL (65-115) H 10/19/23 09:12 Calculated Osmolality 289 mOsm/kg (285-295) 10/19/23 09:12 Calcium 10.0 mg/dL (8.5-10.5) 10/19/23 09:12 Total Bilirubin 0.4 mg/dL (0.15-1.2) 10/19/23 09:12 AST 21 U/L (0-40) 10/19/23 09:12 ALT 29 U/L (0-41) 10/19/23 09:12 Alkaline Phosphatase 75 U/L (40-130) 10/19/23 09:12 Troponin T Baseline 9 ng/L (0-15) 10/19/23 09:12 Troponin T 120 Minute 9.51 ng/L (0-15) 10/19/23 11:02 Delta Troponin T 0.51 ABS# (0-10) 10/19/23 11:02 Total Protein 7.4 g/dL (6.6-8.7) 10/19/23 09:12 Albumin 4.7 g/dL (3.5-5.2) 10/19/23 09:12 Globulin 2.7 g/dL (1.3-4.6) 10/19/23 09:12 All radiology interpretation(s) finalized by discharge EKG Data EKG 1: I personally reviewed and interpreted this EKG as follows: EKG interpretation date: 10/19/23 EKG interpretation time: 08:41 Prior EKG tracings: not available for review Interpretation: Ventricular rate 91 bpm, NV interval 180, QRS duration 93, QTc of 378, sinus rhythm, possible left atrial enlargement. EKG 2: I personally reviewed and interpreted this EKG as follows: EKG interpretation date: 10/19/23 EKG interpretation time: 11:13 Prior EKG tracings: available for review Interpretation: EKG showed ventricular rate 79 bpm, NV interval 194, QRS duration 91, QTc of 377, sinus rhythm, Discharge Plan Discharge Patient Disposition: Home Clinical Impression: Anterior chest wall pain Cough Qualifiers: Cough type: acute Qualified Code(s): R05.1 - Acute cough Condition: Stable Prescriptions: New prednisone 50 mg tablet 50 mg PO DAILY Qty: 7 0RF benzonatate 100 mg capsule 100 mg PO TID Qty: 30 0RF No Action varenicline [Chantix Continuing Month Box] 1 mg tablet 1 mg PO BID Qty: 56 5RF levofloxacin 750 mg tablet 750 mg PO DAILY 7 Days Qty: 7 0RF lorazepam [Ativan] 1 mg tablet 1 mg PO BID PRN (Reason: anxiety) Qty: 60 0RF hydrochlorothiazide 25 mg tablet 25 mg PO QPM Qty: 30 3RF promethazine-DM 6.25-15 mg/5 mL syrup 5 ml PO Q6H PRN (Reason: cough) Qty: 160 0RF BC Pain Relief 845-65 mg Powder In Packet 1 ea PO Q6H PRN (Reason: Pain) Men's Multivitamin 400-20-300 mcg Tablet 1 tab PO QPM albuterol sulfate 90 mcg/actuation HFA aerosol inhaler 2 inh inhalation Q4H PRN (Reason: shortness of breath or wheezing) Qty: 8.5 0RF Vitamin C 500 mg Tablet 500 mg PO DAILY Fish Oil 1,000 mg (120 mg-180 mg) Capsule 1 cap PO DAILY lisinopril 10 mg tablet 10 mg PO DAILY Aspir-81 81 mg Tablet,Delayed Release (Dr/Ec) 81 mg PO DAILY PRN (Reason: Chest Pain) escitalopram oxalate 10 mg tablet 10 mg PO QPM Discharge Orders: Discharge ED (Routine); Ordered 10/19/23 Ordered By: Gui Osullivan Referrals: Delilah Murrieta MD [Primary Care Provider] - 1 week Patient Instructions: Acute Cough (ED), Chest Wall Pain (ED) Activity Restrictions/Additional Instructions: please take all your medicine as directed. Please follow-up with your family practice physician within the next 7 to 10 days for further evaluation and treatment. Coding Level of Care Code ED Timber Treating Tank Operator for Edwige Huff
[2023-10-19 09:34] LABS: Basophils % 0.4 %; Eosinophils # 0.4 10^3/uL (0.0-0.8); Eosinophils % 3.6 %; Hematocrit 48.5 % (37-53); Lymphocytes # 3.2 10^3/uL (0.8-4.8); Lymphocytes % 28.5 %; Mean Corpuscular HGB Conc 34.2 g/dL (30-55); Mean Corpuscular Hemoglobin 28.8 pg (27-33); Mean Corpuscular Volume 84.2 fl (82-101); Mean Platelet Volume 10.1 fL (7.4-10.4); Monocytes # 0.7 10^3/uL (0.2-0.9); Monocytes % 5.9 %; Neutrophils % 61.2 %; Nucleated Red Blood Cells % 0 %; Platelet Count 232 10^3/cmm (157-399); Red Blood Count 5.76 10^6/uL (3.85-5.65); White Blood Count 11.28 10^3/uL (3.29-11.43)
[2023-10-19 09:47] LABS: Troponin(5th) Baseline 9 ng/L (0-15)
[2023-10-19 09:56] LABS: Alanine Aminotransferase 29 U/L (0-41); Albumin Level 4.7 g/dL (3.5-5.2); Alkaline Phosphatase 75 U/L (40-130); Blood Urea Nitrogen 17 mg/dL (6-20); Carbon Dioxide 22 mmol/L (22-29); Chloride 103 mmol/L (98-107); Globulin 2.7 g/dL (1.3-4.6); Glomerular Filtration Rate 106.5 mL/min (90-130); Glucose 126 mg/dL (65-115); Osmolality Calculated 289 mOsm/kg (285-295); Sodium 138 mmol/L (136-145); Total Bilirubin 0.4 mg/dL (0.15-1.2); Total Protein 7.4 g/dL (6.6-8.7)
[2023-10-19 10:01] LABS: Anion Gap 17.3 (5-19); Aspartate Amino Transferase 21 U/L (0-40); Potassium 4.3 mmol/L (3.5-5.1)
--- NOTE | 2023-10-19 11:13 | ECG_ITS ---
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 Measurements Intervals Alfred Rate: 79 P: 39 [place]: 194 QRS: 7 QRSD: 91 T: 46 QT: 342 QTc: 393 Interpretive Statements SINUS RHYTHM Normal EKG Compared to ECG 10/19/2023 08:41:52 No significant change Electronically Signed On 10-19-2023 13:57:43 COMMUNITY ENGAGEMENT LEADER by Herber Carter M.D. [email or web address] [email or web address] general [email or web address] [email or web address] [email or web address]/store/[id number]
[2023-10-19 11:57] LABS: Troponin 5 2HR 9.51 ng/L (0-15); Troponin 5 2HR Delta 0.51 ABS# (0-10)
[2023-10-19] MEDS: ketorolac 60 mg/2 mL INJ IM (12:36)
== END 2023-10-19 12:39 | disposition home or self-care (01) ==
PROVIDERS: Emergency Provider Emergency Medicine; PCP Family Medicine
DX: R07.89 Other chest pain (principal); Z79.82 Long term (current) use of aspirin; I10 Essential (primary) hypertension
CPT/HCPCS: 36415; 71045; 80053; 84484; 85025; 93005; 93010; 96372; 99285; J1885

== ENCOUNTER 2024-03-16 06:46 | Day surgery (SDC) | payer MEDICAID, SELFPAY ==
[2024-03-16] VITALS (12 sets, daily range): BP systolic 111–171; BP diastolic 63–109; PULSE 61–75; RESP 9–18; TEMP 36.1–36.8; O2SAT 93–97; BMI 30.6
--- NOTE | 2024-03-16 07:36 | W.PM.OPSUD ---
Surgery/Procedure H&P Update DATE OF PROCEDURE: March 16, 2024 DATE H&P PERFORMED: 02/24/24 H&P UPDATE INFORMATION: I have reviewed H&P completed within last 30 days, I have examined patient prior to procedure and No changes to prior documentation CHANGES TO PREVIOUS DOCUMENTATION: No changes PREOP DIAGNOSIS: Obstructive sleep apnea PRIMARY INDICATION FOR PROCEDURE: Obstructive sleep apnea with deviated nasal septum and turbinate hypertrophy as well as hypertrophic tonsils and redundant oropharyngeal tissues with long hanging soft palate and hypertrophic uvula. PLANNED PROCEDURE: Operation Date: 03/16/24 08:40 Proposed Procedures p Septoplasty(Not Applicable) - Scot Johansen MD s Turbinate Reduction(Not Applicable) - Scot Johansen MD s Uvulopalatopharyngoplasty(Not Applicable) - Scot Johansen MD s Tonsillectomy(Not Applicable) - Scot Johansen MD
[2024-03-16] MEDS: sodium chloride 0.9% 1,000 ML 30 ML IV (07:41)
[2024-03-16] MEDS: scopolamine 1.5 Patch 1 PATCH TRANSDERMA (07:41)
[2024-03-16] MEDS: midazolam 1 mg/mL INJ 2 mL 2 MG IVP (07:49)
--- NOTE | 2024-03-16 07:49 | ANES.PREANE2 ---
Pre-Anesthetic Assessment Height/Weight: Height 1.85 m Weight 105.233 kg Temp Pulse Resp BP Pulse Ox O2 Del Method 98.2 F 75 18 171/109 97 Room Air 03/16/24 07:21 03/16/24 07:21 03/16/24 07:21 03/16/24 07:21 03/16/24 07:21 03/16/24 07:21 Preop Diagnosis: Obstructive sleep apnea Operation Date: 03/16/24 08:40 Proposed Procedures p Septoplasty(Not Applicable) - Scot Johansen MD s Turbinate Reduction(Not Applicable) - Scot Johansen MD s Uvulopalatopharyngoplasty(Not Applicable) - Scot Johansen MD s Tonsillectomy(Not Applicable) - Scot Johansen MD Familial anesthetic complications: None Was Beta Ivy taken within 24 hours: N/A Was Clonidine taken within 24 hours: N/A Last intake: Intake Last Liquid Date 03/15/24 Last Liquid Time 22:00 Last Solid Date 03/15/24 Last Solid Time 21:00 Social No alcohol and No tobacco Quit smoking a little over a week ago Airway Mallampati: Class IV Dentition: full Pulmonary Sleep Apnea CV/HEM hx infective endocarditis Hepatic hx hep C Anesthetic Plan ASA status: 2 Anesthesia: General Risk of > 500 ml blood loss (7ml/kg in children): No Medications/Allergies Home Medications Medication Instructions Recorded Confirmed Last Taken Type albuterol sulfate 90 mcg/actuation 2 inh inhalation Q4H PRN shortness 01/01/23 03/12/24 Unknown Rx aerosol inhaler of breath or wheezing #8.5 grams aspirin-caffeine 845 mg-65 mg oral 1 ea PO Q6H PRN Pain 07/27/23 03/16/24 Unknown History powder packet (BC Pain Relief) ascorbic acid (vitamin C) 500 mg 500 mg PO DAILY 10/19/23 03/12/24 03/12/24 History tablet (Vitamin C) escitalopram oxalate 10 mg tablet 10 mg PO QPM #30 tabs 01/06/24 03/12/24 03/15/24 Rx hydrochlorothiazide 25 mg tablet 25 mg PO QPM #30 tabs 01/06/24 03/12/24 03/15/24 Rx lisinopril 40 mg tablet 40 mg PO DAILY #30 tabs 02/03/24 03/12/24 03/15/24 Rx lorazepam 1 mg tablet (Ativan) 1 mg PO BID PRN anxiety #60 tabs 03/12/24 03/16/24 03/15/24 Rx omega-3 fatty acids 1,000 mg PO DAILY 03/16/24 03/16/24 03/13/24 History Allergies Allergy/AdvReac Type Severity Reaction Status Date / Time shellfish derived Allergy ALGY-Anaphy Verified 03/16/24 07:39 laxis Current Medications Generic Name Dose Route Start Last Admin Trade Name Freq PRN Reason Stop Dose Admin Sodium Chloride 1,000 mls @ 30 mls/hr 03/16/24 07:15 03/16/24 07:41 Sodium Chloride 0.9% IV 03/17/24 07:14 30 mls/hr .Q24H MALCOM Administration PFSH Anesthesia Medical History History of hypertension 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
[2024-03-16] MEDS: ceFAZolin 2,000 MG in sodium chloride 0.9% (plus) 50 ML 100 MG IV (09:37)
[2024-03-16] MEDS: lidocaine-epi 2% 1.7mL Cartridge (OR Only) 8.5 ML XX (10:31)
[2024-03-16] MEDS: oxymetazoline 0.05% Nasal Spray 15 mL 2 SPRAY NOSTRIL-B (10:32)
[2024-03-16] MEDS: neomycin-poly-bacitracin oint 28 gm 1 APPLIC TOPICAL (11:17)
--- NOTE | 2024-03-16 11:28 | P.OP_ITS ---
Operative Report Date of procedure: March 16, 2024 Pre-op diagnosis: Obstructive sleep apnea with deviated nasal septum and turbinate hypertrophy and tonsillar hypertrophy and elongated soft palate with hypertrophic uvula and redundant oropharyngeal tissue Post-op diagnosis: Same Post-op findings: Severely deviated nasal septum to the left side with large spur. Turbinate hypertrophy right side greater than left 3-4+. 3+ tonsils. Hypertrophic elongated uvula. Elongated thickened soft palate and redundant lateral oropharyngeal tissues Procedure done: Septoplasty with bilateral inferior turbinate submucous resection with intramural techniques. Tonsillectomy. Uvulopalatopharyngoplasty. Implants: 2 septal splints and 2 Telfa packs intranasally Specimens removed/disposition: Tonsils with soft palate and uvula. Portions of bilateral inferior turbinates Pathology: Bilateral tonsils with soft palate and uvula and block. Bilateral inferior turbinate portions. Surgeon: Scot Johansen MD Anesthesia: General and Local Estimated blood loss: 100 mL Complications: No complications encountered Findings: Patient noted to have obstructive oral and nasal airway. Severely deviated nasal septum anteriorly and mid and posterior to the left side. Compensatory turbinate hypertrophy right side with 4+ inferior turbinate on the right and 3+ on the left with indentation from the spur. The patient also noted to have hypertrophic tonsils with the extreme scarring with redundant lateral oropharyngeal tissues and elongated thickened soft palate and hypertrophic uvula hanging well below the base of tongue. Brief History: 43-year-old male patient with obstructive sleep apnea refractory to CPAP. Patient noted on exam to have severely deviated nasal septum with turbinate hypertrophy. Has hypertrophic tonsils with redundant oropharyngeal tissues laterally. Elongated thickened soft palate with hypertrophic elongated uvula. Patient therefore is being brought to the operating room to undergo septoplasty with turbinate reduction and tonsillectomy with UPPP/ uvulopalatopharyngoplasty). The procedure its risks and complications were explained in detail to the patient in the office setting. These risks included bleeding infection numbness scarring swelling bruising septal hematoma abscess or perforation change in sense of smell nasal dryness recurrent problems need for additional treatment as well as potential delayed bleeding from the tonsillectomy and UPPP site. Other risks include regrowth of the tonsils neck and throat and ear pain as well as bad breath voice change nasal regurgitation and more serious risk such as heart attack or stroke or not surviving the surgery. Patient understands that this procedure will certainly help his nasal airflow during the day. It will certainly enlarge his oral airway posteriorly. However this does not guarantee that he will have resolution of his obstructive sleep apnea and he may still need to use a CPAP or BiPAP device in the future. He is aware Procedure: Description of procedure: The patient was placed on the operating table in the supine position. Adequate general endotracheal tube anesthesia was obtained. A timeout was accomplished identifying the patient and date of and planned procedure and allergies as well as fire risk and medications given. With all in agreement the procedure continued. The patient was given Ancef IV for prophylaxis and Decadron to help with postoperative edema. The patient's nose was packed with cottonoids soaked in 12-hour Afrin. After several minutes and after trimming the nasal hairs with scissors, the packs were removed. The septum and inferior turbinates were infiltrated with local utilizing a total of 8.5 mL of 2% Xylocaine with 1-100,000 epinephrine. Then the Afrin packs were reapplied to the nose. Attention was then turned to the oral procedure. The table was rotated 90 degrees. The patient's eyes were taped shut and a head drape was applied in usual fashion. His head was dropped 15 degrees to the horizontal. A Lucrecia Mesfin mouthgag was inserted over the endotracheal tube and tongue ensuring that the upper incisors were in the guard. This was opened and suspended from a rolled towels placed on his chest. A tenaculum was used to clamp the left tonsil and retracted towards the midline. Significant redundant lateral tissue was noted as well as a hypertrophic 3+ tonsil. The tonsil and the anterior and posterior pillars were resected using the Coblator on ablation and coagulation modes. The dissection was carried out from a superior to inferior direction and then from lateral to medial. After removal of the tonsil still clinging to the superior aspect of the soft palate the dissection was carried along the soft palate removing approximately 1 cm of tissue and extending it and removing the uvula as well. This was done anterior to posterior. Hemostasis was attained with the Coblator as the dissection proceeded. Then a similar procedure was performed to remove the right tonsil. En bloc the specimen was sent to pathology for permanent section diagnosis. Spot cauterization was then performed to obtain complete hemostasis in the tonsillectomy and UPPP sites. Then the anterior and posterior mucous membranes were brought together on the soft palate with interrupted 2-0 chromic sutures. To reduce the thickness of the lateral tissues and extreme thickness of muscle additional tissue was removed in a piecemeal fashion with the Coblator from the posterior and lateral musculature. This gave a significant improvement in the oral opening. The mouthgag was then released and the tongue and neck were massaged. Mouthgag was reopened. A little bit of ooze occurred from the left side inferiorly near the base of the tongue and this was treated with the coagulation mode of the Coblator. The mouthgag was then released and removed. The patient's head was returned to the upright position. The table was then rotated 90 degrees and placed in a semirecumbent position. It was then tilted slightly to the right side. This gave access and visualization of his nose. The Afrin packs were removed from the patient's nose. Inspection revealed persistent 3-4+ turbinate hypertrophy. The inferior turbinates were outfractured with a Shasta elevator. A left hemitransfixion incision was then created with a 15 blade carrying it down to the septal cartilage. A mucoperichondrial periosteal flap was then raised in all directions on the left side. This was done with a Ariana elevator. Then iris scissors were used to cut the soft tissue attachments of the anteriormost portion of the quadrangular cartilage from inferior to superior. This released that segment of the cartilage and allowed for half round knife to be used to remove an inferior strip of cartilage over its entire length. Approximately 2 to 3 mm of excess height overriding the crest of the left side was resected with Bang forceps. With this accomplished additional debulking of the anterior band inferiorly was accomplished with scissors. The quadrangular cartilage was then disarticulated from the perpendicular plate of the ethmoid and vomer. A posterior tunnel was then created on the right side. Then Bang forceps were used to remove the significant posterior and inferior spur which was a combination of cartilage extending posteriorly as well as multiple large segments of thickened bone. Once this was all resected a drain hole was created on the left side to prevent hematoma formation. The septum now rested in a good straight midline position. Turbinates were once again addressed. Both inferior turbinates were cauterized along her medial and lateral aspects and the distal portion of each inferior turbinate was resected using turbinate scissors and creating a submucous resection removing additional bone more proximally in the distal portion of the soft tissue of both inferior turbinates over its entire length anterior to posterior. With this accomplished a Shasta elevator was now able to be passed through both nasal chambers to the nasopharynx without obstruction. The left hemitransfixion incision was then closed with interrupted 4-0 chromic suture. 2 septal splints were coated with Neosporin and 1 was applied each side of the septum. These were sutured in a through and through fashion with 3-0 Prolene. 2 Telfa packs were then cut to size coated with Neosporin and 1 was applied each side of the nose extending anterior to posterior. The face was then cleansed. A drip pad was applied under the nose. The mouth was then suctioned clean with the Yankauer suction. Irrigation with saline was accomplished. Additional suctioning was accomplished. No sign of active bleeding was encountered. The patient's position was returned to a supine position. The throat was suctioned again with no sign of bleeding. The patient was then returned to the anesthesiologist for wake-up and extubation. The patient tolerated the procedure well and had an estimated blood loss of 100 mL or less and arrived in recovery in stable condition.
[2024-03-16] MEDS: HYDROmorphone 1 mg/mL INJ 1 mL 0.5 MG IVP ×2 (11:48→12:35)
[2024-03-16] MEDS: HYDROmorphone 1 mg/mL INJ 1 mL (12:00)
[2024-03-16] MEDS: fentaNYL 50 mcg/mL INJ 2mL IVP (13:08)
[2024-03-16 13:45] LABS: Hepatitis B Surface Antigen Non-Reactive (Nonreactive); Hepatitis C Virus Antibody Reactive (Nonreactive)
[2024-03-16 13:54] LABS: HIV 1 & 2 Antibody Non-Reactive (Non-Reactiv); HIV 1 & 2 Antigen Non-Reactive (Non-Reactiv)
[2024-03-16] MEDS: oxyCODONE-APAP 5-325 mg Tablet 1 TAB PO (14:06)
--- NOTE | 2024-03-16 14:40 | ANE.PACU2 ---
Inpatient post-anesthesia follow up: Airway intact: Yes Vital signs: Temperature 97.8 F Pulse Rate 68 Respiratory Rate 18 Blood Pressure 127/89 Pulse Oximetry 97 Oxygen Delivery Me thod Room Air Oxygen Flow Rate Fraction of Inspir ed Oxygen Hydration adequate: Yes Nausea and vomiting: No Pain level: 1 Mental status: Baseline
[2024-03-17 13:20] LABS: HEP C RNA Viral Load Quant <1.18 NOT DETECTED Log IU/mL (NOT DETECTED); HEP C RNA Viral Load Quant <15 NOT DETECTED IU/mL (NOT DETECTED)
== END 2024-03-16 14:40 | disposition home or self-care (01) ==
PROVIDERS: PCP Family Medicine; Visit Provider Otolaryngology
PROC: (CPT 30520; principal; 2024-03-16 08:30)
PROC: (CPT 30140; 2024-03-16 08:30)
PROC: (CPT 42145; 2024-03-16 08:30)
PROC: (CPT 30140; 2024-03-16 08:30)
DX: G47.33 Obstructive sleep apnea (adult) (pediatric) (principal); J34.2 Deviated nasal septum; J34.3 Hypertrophy of nasal turbinates; K13.79 Other lesions of oral mucosa; Z87.891 Personal history of nicotine dependence; G47.30 Sleep apnea, unspecified; Z86.19 Personal history of other infectious and parasitic diseases; I10 Essential (primary) hypertension; F15.21 Other stimulant dependence, in remission
CPT/HCPCS: 30140; 30520; 42145; 86803; 87340; 87522; 87806; 88304; 88305; 88311; J0131; J0330; J0690; J1100; J1171; J2250; J2371; J2405; J2704; J2710; J3010; J3490; J7030; J9999

== ENCOUNTER 2024-03-20 09:20 | Inpatient (IN) | payer MEDICAID, SELFPAY ==
[2024-03-20] VITALS (56 sets, daily range): BP systolic 69–172; BP diastolic 47–143; PULSE 76–147; RESP 11–25; TEMP 36.2–37; O2SAT 85–98; BMI 29.1; BMI 30.4
--- NOTE | 2024-03-20 09:36 | ECG_ITS ---
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 Measurements Intervals Adams Rate: 166 P: 0 MT: 0 QRS: 15 QRSD: 110 T: 50 QT: 262 QTc: 436 Interpretive Statements ATRIAL FIBRILLATION WITH RAPID VENTRICULAR RESPONSE CRITICAL TEST RESULT Compared to ECG 10/19/2023 11:13:17 Sinus rhythm no longer present Electronically Signed On 03-21-2024 19:21:41 CDT by Kym Lake M.D. [id number] f
[2024-03-20] MEDS: ondansetron 2 mg/ML SDV 2 mL 4 MG IVP (09:55)
[2024-03-20] MEDS: sodium chloride 0.9% 1,000 ML 999 ML IV ×3 (09:55→11:12)
[2024-03-20 10:03] LABS: Basophils % 0.2 %; Eosinophils # 0.2 10^3/uL (0.0-0.8); Eosinophils % 0.6 %; Hematocrit 54.9 % (37-53); Lymphocytes # 4.5 10^3/uL (0.8-4.8); Lymphocytes % 18.6 %; Mean Corpuscular HGB Conc 33.9 g/dL (30-55); Mean Corpuscular Hemoglobin 28.9 pg (27-33); Mean Corpuscular Volume 85.4 fl (82-101); Mean Platelet Volume 9.8 fL (7.4-10.4); Monocytes # 2.1 10^3/uL (0.2-0.9); Monocytes % 8.7 %; Neutrophils # 17.22 10^3/uL (1.8-7.7); Neutrophils % 71.1 %; Nucleated Red Blood Cells % 0 %; Platelet Count 314 10^3/cmm (157-399); Red Blood Count 6.43 10^6/uL (3.85-5.65); Red Cell Distribution Width 12.6 % (12.1-15.1); White Blood Count 24.23 10^3/uL (3.29-11.43)
--- NOTE | 2024-03-20 10:12 | ED_ITS ---
HPI - General Adult 2 General: Chief complaint: General Medical Stated complaint: Low blood pressure Time Seen by Provider: 03/20/24 09:32 History of Present Illness: 43-year-old man who had a recent tonsill ectomy who presents to the emergency room with low blood pressure. He says he has only had a tiny bit of water in the last 5 days. He is profoundly hypotensive on presentation and tachycardic. He appears somewhat mottled. He is afebrile. Patient says he had adenoids tonsils and nasal septal deviation repair all at the same time. This was for sleep apnea. Review of Systems 2 Narrative: Constitutional symptoms: Negative except as documented in HPI. Skin symptoms: Negative except as documented in HPI. Eye symptoms: Negative except as documented in HPI. ENMT symptoms: Negative except as documented in HPI. Respiratory symptoms: Negative except as documented in HPI. Cardiovascular symptoms: Negative except as documented in HPI. Gastrointestinal symptoms: Negative except as documented in HPI. Genitourinary symptoms: Negative except as documented in HPI. Musculoskeletal symptoms: Negative except as documented in HPI. Neurologic symptoms: Negative except as documented in HPI. Psychiatric symptoms: Negative except as documented in HPI. Endocrine symptoms: Negative except as documented in HPI. 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 Head: Normocephalic, atraumatic. Neck: Supple, trachea midline. Eye: Extraocular movements are intact. Ears, nose, mouth and throat: Dry oral mucosa. Postsurgical changes to the posterior throat. Stitches are in place. There are some dried blood. Cardiovascular: irregular, tachycardic, appears somewhat mottled. Respiratory: Lungs are clear to auscultation, respirations are non-labored, breath sounds are equal, Symmetrical chest wall expansion. Gastrointestinal: Soft, Nontender, Non distended, Normal bowel sounds. Musculoskeletal: Normal ROM, no deformity. Neurological: Alert and oriented, No focal neurological deficit observed. Psychiatric: Cooperative, appropriate mood & affect. Course 2 Vital Signs: Vital signs: Vital Signs Temperature 98.6 F 03/20/24 09:29 Pulse Rate 141 H 03/20/24 11:10 Respiratory Rate 14 03/20/24 11:10 Blood Pressure 88/62 03/20/24 11:10 Pulse Oximetry 97 03/20/24 11:10 Oxygen Delivery Me thod Room Air 03/20/24 10:00 MDM - General Adult Medical Decision Making Medical decision making: Differential diagnosis including but not limited to and based on the above HPI, review of systems and physical exam: In this postsurgical patient with hypotension and tachycardia primary concern would be renal failure and dehydration. Also concern for infection. Orders placed to evaluate differential diagnosis based on the above differential, HPI and physical exam Lab Review: Laboratory results were reviewed and interpreted by myself the emergency room physician. Patient has significant leukocytosis with white count 24,000. He has acute renal failure with a BUN/creatinine of 42 and 3.2. His hemoglobin is concentrated at 18.6 which is likely from dehydration as well. Urinalysis is negative for infection. EKG: Time 933 rate 166 atrial fibrillation with rapid ventricular response, No ST-T changes, no ectopy, This was reviewed and interpreted by myself the ER physician at 935. Chest x-ray: No acute process. No infiltrate. No pneumothorax. No cardiomegaly. This was reviewed and interpreted by myself the ER physician. Consultation: I consulted Dr. Johansen with ENT who had done the surgery. He recommends fluids, pain control and Ancef. He is coming to see the patient in the emergency room. I reviewed the patient's medical record. Reexamination: Patient remains in A-fib. His heart rate has ranged between 120s and 150s. Blood pressure, briefly to about 115 but has dropped back down so 1/3 L of fluid was ordered. No altered mental status. His throat appears fairly similar to most postsurgical tonsillectomies. Stitches are still present. There is some dried blood and some white tissue. No focal motor deficits. Heart rate remains irregular and tachycardic. Lab Data 03/20/24 09:50 03/20/24 09:50 Laboratory Results WBC 24.23 10^3/uL (3.29-11.43) H 03/20/24 09:50 RBC 6.43 10^6/uL (3.85-5.65) H 03/20/24 09:50 Hgb 18.60 g/dL (11.27-16.99) H 03/20/24 09:50 Hct 54.9 % (37-53) H 03/20/24 09:50 MCV 85.4 fl (82-101) 03/20/24 09:50 MCH 28.9 pg (27-33) 03/20/24 09:50 MCHC 33.9 g/dL (30-55) 03/20/24 09:50 RDW 12.6 % (12.1-15.1) 03/20/24 09:50 Plt Count 314 10^3/cmm (157-399) 03/20/24 09:50 MPV 9.8 fL (7.4-10.4) 03/20/24 09:50 Neut % (Auto) 71.1 % 03/20/24 09:50 Lymph % (Auto) 18.6 % 03/20/24 09:50 [place] % (Auto) 8.7 % 03/20/24 09:50 Eos % (Auto) 0.6 % 03/20/24 09:50 Baso % (Auto) 0.2 % 03/20/24 09:50 Neut # (Auto) 17.22 10^3/uL (1.8-7.7) H 03/20/24 09:50 Lymph # (Auto) 4.5 10^3/uL (0.8-4.8) 03/20/24 09:50 [place] # (Auto) 2.1 10^3/uL (0.2-0.9) H 03/20/24 09:50 Eos # (Auto) 0.2 10^3/uL (0.0-0.8) 03/20/24 09:50 Baso # (Auto) 0.0 10^3/uL (0.0-0.1) 03/20/24 09:50 Nucleated RBC % (auto) 0 % 03/20/24 09:50 Nucleated RBCs # 0.0 /100WBC 03/20/24 09:50 Sodium 136 mmol/L (136-145) 03/20/24 09:50 Potassium 4.0 mmol/L (3.5-5.1) 03/20/24 09:50 Chloride 92 mmol/L (98-107) L 03/20/24 09:50 Carbon Dioxide 23 mmol/L (22-29) 03/20/24 09:50 Anion Gap 25.0 (5-19) H 03/20/24 09:50 BUN 42 mg/dL (6-20) H 03/20/24 09:50 Creatinine 3.2 mg/dL (0.7-1.2) H 03/20/24 09:50 GFR Calculation 21.4 mL/min (90-130) L 03/20/24 09:50 Glucose 116 mg/dL (65-115) H 03/20/24 09:50 Calculated Osmolality 293 mOsm/kg (285-295) 03/20/24 09:50 Lactic Acid 1.5 mmol/L (0.5-2.2) 03/20/24 10:45 Calcium 9.9 mg/dL (8.5-10.5) 03/20/24 09:50 Total Bilirubin 0.7 mg/dL (0.15-1.2) 03/20/24 09:50 AST 11 U/L (0-40) 03/20/24 09:50 ALT 17 U/L (0-41) 03/20/24 09:50 Alkaline Phosphatase 85 U/L (40-130) 03/20/24 09:50 Total Protein 8.8 g/dL (6.6-8.7) H 03/20/24 09:50 Albumin 4.4 g/dL (3.5-5.2) 03/20/24 09:50 Globulin 4.4 g/dL (1.3-4.6) 03/20/24 09:50 Urine Color Yellow (Yellow) 03/20/24 09:25 Urine Appearance Cloudy (CLEAR) A 03/20/24 09:25 Urine pH 5 (5-7) 03/20/24 09:25 Ur Specific Petty 1.025 (1.005-1.030) 03/20/24 09:25 Urine Protein 1+ (Negative) H 03/20/24 09:25 Urine Glucose (UA) Norm (Normal) 03/20/24 09:25 Urine Ketones 1+ (Negative) H 03/20/24 09:25 Urine Blood 2+ (Negative) H 03/20/24 09:25 Urine Nitrate Negative (Negative) 03/20/24 09:25 Urine Bilirubin 1+ (Negative) H 03/20/24 09:25 Urine Urobilinogen Neg mg/dL (Negative) 03/20/24 09:25 Ur Leukocyte Esterase Trace (Negative) H 03/20/24 09:25 Urine RBC 0-4 /hpf (0-2) H 03/20/24 09:25 Urine WBC 0-4 /hpf (0-5) H 03/20/24 09:25 Ur Squamous Epith Cells 0-4 /hpf (0-5) H 03/20/24 09:25 Calcium Oxalate Crystal 0-4 /hpf H 03/20/24 09:25 Amorphous Sediment 3+ /hpf 03/20/24 09:25 Urine Bacteria None /hpf (NONE) 03/20/24 09:25 All radiology interpretation(s) finalized by discharge Other Data Assessment and plan: Acute renal failure Hypotension Dehydration A-fib with RVR Leukocytosis Concern for sepsis -Total of 3 L normal saline given. Heart rate improved some and blood pressure improved some -2.5 L normal saline bolus. Fluid volumes based on ideal body weight. -Ancef was administered. -Sepsis quality measures. -Lactic acid with a reflex was ordered. -Blood cultures were ordered. Procalcitonin ordered. -Amiodarone drip and amiodarone bolus. Patient has no known history of A-fib and is likely secondary to his to dehydration. -I discussed the patient with the hospitalist on-call who is admitting the patient. - Discussed findings and plan with patient. Answered any questions. - All laboratory values were reviewed and interpreted personally by myself, the ER physician - All imaging was reviewed and interpreted personally by myself, the ER physician. - Evaluation and treatment of this problem were appropriate in the emergency setting Critical care -I spent a total of >35 minutes of critical care time managing the patient, independent of any other practitioner. -The time involved in the performance of separately reportable procedures was not counted towards critical care time. Discharge Plan Discharge Patient Disposition: Admitted As Inpatient Clinical Impression: Acute renal failure, Dehydration, Atrial fibrillation with RVR, Hypotension, Leukocytosis Condition: Stable Coding Level of Care Code ED [employer] for Edwige Huff
[2024-03-20 10:20] LABS: Alanine Aminotransferase 17 U/L (0-41); Albumin Level 4.4 g/dL (3.5-5.2); Alkaline Phosphatase 85 U/L (40-130); Aspartate Amino Transferase 11 U/L (0-40); Blood Urea Nitrogen 42 mg/dL (6-20); Calcium 9.9 mg/dL (8.5-10.5); Carbon Dioxide 23 mmol/L (22-29); Chloride 92 mmol/L (98-107); Globulin 4.4 g/dL (1.3-4.6); Glomerular Filtration Rate 21.4 mL/min (90-130); Glucose 116 mg/dL (65-115); Osmolality Calculated 293 mOsm/kg (285-295); Sodium 136 mmol/L (136-145); Total Bilirubin 0.7 mg/dL (0.15-1.2); Total Protein 8.8 g/dL (6.6-8.7)
[2024-03-20 10:22] LABS: Creatinine Clr Calc Pharmacy 36.3965
[2024-03-20 10:22] LABS: Urine Appearance Cloudy (CLEAR); Urine Color Yellow (Yellow)
[2024-03-20 10:23] LABS: Add Urine Culture? No; Amorphous Sediment Urine 3+ /hpf; Bilirubin Urine 1+ (Negative); Blood Urine 2+ (Negative); Calcium Oxalate Crystals Urine 0-4 /hpf; Glucose Urine UA Norm (Normal); Ketones Urine 1+ (Negative); Leukocyte Esterase Urine Trace (Negative); Nitrate Urine Negative (Negative); Protein Urine 1+ (Negative); RBC Urine 0-4 /hpf (0-2); Specific Gravity, Urine 1.025 (1.005-1.030); Squamous Epithelial Cell Urine 0-4 /hpf (0-5); Urobilinogen Urine Neg (Negative); WBC Urine 0-4 /hpf (0-5); pH Urine 5 (5-7)
--- NOTE | 2024-03-20 11:00 | XRR_ITS ---
PROCEDURE INFORMATION: Exam: XR Chest Exam date and time: 03/20/2024 11:18 AM Age: 43 years old Clinical indication: Other: Weakness TECHNIQUE: Imaging protocol: Radiologic exam of the chest. Views: 1 view. COMPARISON: CR XR chest 1V portable [id number] 10/19/2023 9:03 AM FINDINGS: Lungs: Unremarkable. No consolidation. Pleural spaces: Unchanged scarring left lateral costophrenic angle. No pleural effusion or pneumothorax. Heart/Mediastinum: Unremarkable. No cardiomegaly. Diaphragm: Unchanged mild elevation of the left hemidiaphragm. Bones/joints: Unremarkable. XR/XR chest 1V [id number] IMPRESSION: No acute disease.
[2024-03-20] MEDS: sodium chloride 0.9% 100 mL Bag XX (11:12)
[2024-03-20] MEDS: ceFAZolin 2,000 mg SDV 2000 MG IVP (11:12)
[2024-03-20 11:15] LABS: Lactic Sepsis W/Reflex 1.5 mmol/L (0.5-2.2)
--- NOTE | 2024-03-20 11:45 | P.CONIM_ITS ---
Providers/Reason For Consult 2 Consulting Physician/Specialty*: Scot Johansen MD/otolaryngology Reason for Consult*: Patient with postoperative dehydration hypotension atrial fibrillation and poorly controlled pain. Not swallowing. Requesting Physician: ER physician Primary Care Provider: Delilah Murrieta MD History of Present Illness History of Present Illness Isaias Hamlin is a 43 year old male who 4 days ago underwent septoplasty with turbinate reduction and tonsillectomy with uvulopalatopharyngoplasty. He was discharged with antibiotics and pain medication. In spite of that he has not been able to swallow and drink or eat. As result he has become dehydrated and is being seen in the emergency room with hypotension and atrial fibrillation. Medications/Allergies Home Medications Medication Instructions Recorded Confirmed Last Taken Type albuterol sulfate 90 mcg/actuation 2 inh inhalation Q4H PRN shortness 01/01/23 03/20/24 Unknown Rx aerosol inhaler of breath or wheezing #8.5 grams aspirin-caffeine 845 mg-65 mg oral 1 ea PO Q6H PRN Pain 07/27/23 03/20/24 Unknown History powder packet (BC Pain Relief) ascorbic acid (vitamin C) 500 mg 500 mg PO DAILY 10/19/23 03/20/24 03/19/24 History tablet (Vitamin C) escitalopram oxalate 10 mg tablet 10 mg PO QPM #30 tabs 01/06/24 03/20/24 03/19/24 Rx hydrochlorothiazide 25 mg tablet 25 mg PO QPM #30 tabs 01/06/24 03/20/24 03/19/24 Rx lorazepam 1 mg tablet (Ativan) 1 mg PO BID PRN anxiety #60 tabs 03/12/24 03/20/24 03/15/24 Rx cephalexin 500 mg capsule 500 mg PO TID 10 days #30 caps 03/16/24 03/20/24 03/19/24 Rx oxycodone-acetaminophen 5 mg-325 2 tab PO Q4-5H PRN pain 5 days #40 03/16/24 03/20/24 03/20/24 Rx mg tablet (Percocet) tabs lisinopril 40 mg tablet 20 mg PO DAILY 03/20/24 03/20/24 03/19/24 History omega-3 fatty acids 1,000 mg 1,000 mg PO DAILY 03/20/24 03/20/24 03/19/24 History capsule Allergies Allergy/AdvReac Type Severity Reaction Status Date / Time shellfish derived Allergy ALGY-Anaphy Verified 03/16/24 07:39 laxis Current Medications Generic Name Dose Route Start Last Admin Trade Name Genesis PRN Reason Stop Dose Admin Sodium Chloride 1,000 mls @ 999 mls/hr 03/20/24 10:46 03/20/24 11:14 Sodium Chloride 0.9% IV 03/20/24 11:46 Infused .Q1H1M ONE Infusion PFSH Acute 2 PFSH: Medical History History of hypertension 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 Family History Denies family history of CAD (coronary artery disease) Anesthesia complication Bleeding disorder Social History Smoking and tobacco/nicotine status: current every day tobacco/nicotine user cigarettes Packs smoked per day: 1.5 Years cigarettes smoked: 18 Second hand smoke exposure: No Alcohol intake: unknown Substance/Drug Use: unknown Vitals/I&O/Wt Last Vital Signs Temp 98.6 F 03/20/24 09:29 Pulse 147 H 03/20/24 11:25 Resp 13 03/20/24 11:25 BP 83/56 03/20/24 11:25 Pulse Ox 95 03/20/24 11:25 O2 Del Method Room Air 03/20/24 10:00 03/19/24 03/20/24 03/20/24 22:59 06:59 14:59 Intake Total 3000 / 3000 Balance 3000 / 3000 Weight last 48 hrs Weight 215 lb Physical Exam 2 Narrative: Examination reveals that the nasal packing and splints are in place. Drip pad under the nose with no sign of any secretions or bleeding. The patient's mouth and oropharynx show the postsurgical changes. Chromic suture still in place on the palate. Tonsil beds with thin eschar present. No sign of bleeding or infection. Significant halitosis is noted. Data 03/20/24 09:50 03/20/24 09:50 Micro: Microbiology 03/20/24 10:45 Blood Culture - Preliminary Blood SPECIMEN COLLECTED A&P Assessment and plan (1) Hypovolemia dehydration: Assessment: Patient has hypovolemia dehydration from poor oral intake following tonsillectomy with UPPP and septoplasty with turbinate reduction. Having to mouth breathe is drying out as well. Pain and patient's inability to swallow is causing him to get dehydration with associated hypovolemia. A-fib. Patient will be admitted with hospitalist care. Asked to see this patient and all looks well from the postoperative surgical sites. No sign of bleeding. No sign of infection. Significant halitosis is noted. That is normal. White count elevation is oftentimes seen after this surgery and certainly would be aggravated by the dehydration. (2) Hypotension due to hypovolemia: Plan Plan: Admission to hospitalist care for his hypovolemia hypotension A-fib and any other medical concerns. He certainly can drink fluids. Stay away from dairy products. Pain medication and IV fluids as appropriate. Analgesia as well. Will be available should any other concerns develop from a surgical standpoint. Coding Level of Care Code 36673 Diagnoses Hypovolemia dehydration E86.1 Hypotension due to hypovolemia E86.1
--- NOTE | 2024-03-20 11:52 | P.HP_ITS ---
Providers/Chief Complaint 2 Admitting Physician: Nathan Robin MD Primary Care Provider: Delilah Murrieta MD Chief Complaint: Low blood pressure History of Present Illness Isaias Hamlin is a 43 year old male recently undergoing ENT surgery on March 16 with septoplasty, bilateral inferior turbinate resection, tonsillectomy and uvulopalatopharyngoplasty. No obvious complications with surgery, and patient was able to go home the same day. He reports at home he has not been able to eat and drink. He has had decreased urine output. He has not been able to take pain medication or antibiotics adequately. He reports he is short of breath. He denies any history of cardiac issues or atrial fibrillation. He reports no drug or alcohol use. Besides atrial fibrillation with rapid ventricular rate, low blood pressure was noted in the emergency department. He does not believe he has had any fever at home. He has received Ancef, 2 L of isotonic fluids, nausea medicine, pain medicine, and amiodarone is being initiated in the emergency department. Review of Systems 2 General: Reports: 10 or more systems reviewed and unremarkable except in HPI and below Card: Reports: palpitations and dyspnea on exertion; Denies: chest pain Resp: Reports: dyspnea GI: Denies: abdominal pain, nausea, vomiting, hematochezia or melena Medications/Allergies Home Medications Medication Instructions Recorded Confirmed Last Taken Type albuterol sulfate 90 mcg/actuation 2 inh inhalation Q4H PRN shortness 01/01/23 03/20/24 Unknown Rx aerosol inhaler of breath or wheezing #8.5 grams aspirin-caffeine 845 mg-65 mg oral 1 ea PO Q6H PRN Pain 07/27/23 03/20/24 Unknown History powder packet (BC Pain Relief) ascorbic acid (vitamin C) 500 mg 500 mg PO DAILY 10/19/23 03/20/24 03/19/24 History tablet (Vitamin C) escitalopram oxalate 10 mg tablet 10 mg PO QPM #30 tabs 01/06/24 03/20/24 03/19/24 Rx hydrochlorothiazide 25 mg tablet 25 mg PO QPM #30 tabs 01/06/24 03/20/24 03/19/24 Rx lorazepam 1 mg tablet (Ativan) 1 mg PO BID PRN anxiety #60 tabs 03/12/24 03/20/24 03/15/24 Rx cephalexin 500 mg capsule 500 mg PO TID 10 days #30 caps 03/16/24 03/20/24 03/19/24 Rx oxycodone-acetaminophen 5 mg-325 2 tab PO Q4-5H PRN pain 5 days #40 03/16/24 03/20/24 03/20/24 Rx mg tablet (Percocet) tabs lisinopril 40 mg tablet 20 mg PO DAILY 03/20/24 03/20/24 03/19/24 History omega-3 fatty acids 1,000 mg 1,000 mg PO DAILY 03/20/24 03/20/24 03/19/24 History capsule Allergies Allergy/AdvReac Type Severity Reaction Status Date / Time shellfish derived Allergy ALGY-Anaphy Verified 03/16/24 07:39 laxis PFSH Acute 2 PFSH: Medical History History of hypertension 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 Family History Denies family history of CAD (coronary artery disease) Anesthesia complication Bleeding disorder Social History Smoking and tobacco/nicotine status: current every day tobacco/nicotine user cigarettes Packs smoked per day: 1.5 Years cigarettes smoked: 18 Second hand smoke exposure: No Alcohol intake: unknown Substance/Drug Use: unknown Vitals/I&O/Wt Last Vital Signs Temp 98.6 F 03/20/24 09:29 Pulse 147 H 03/20/24 11:25 Resp 13 03/20/24 11:25 BP 83/56 03/20/24 11:25 Pulse Ox 95 03/20/24 11:25 O2 Del Method Room Air 03/20/24 10:00 03/19/24 03/20/24 03/20/24 22:59 06:59 14:59 Intake Total 3000 / 3000 Balance 3000 / 3000 Weight last 48 hrs Weight 97.522 kg Physical Exam 2 Narrative: General exam is an uncomfortable appearing white male, with at least mild respiratory distress, and difficulty breathing through his nose which appears packed. HEENT: Pupils equally round. Nares are packed. Oropharynx with halitosis, eschar to upper posterior palate and back of mouth Neck is supple no lymphadenopathy thyromegaly Cardiovascular irregular with accelerated rate, no obvious murmur Lungs clear Abdomen is soft. Positive bowel sounds. No obvious organomegaly exams deferred Extremities no sinus clubbing edema, cap refill brisk Skin no rash Neuro no focal deficits. Data 03/20/24 09:50 03/20/24 09:50 Other Labs: Chest x-ray by my read demonstrates no obvious infiltrate. LFTs are normal Lactic acid normal Calcium, albumin normal Urinalysis with 0-4 reds 0-4 whites, 1+ protein EKG which I reviewed demonstrated A-fib with RVR, rate in the 140s, normal axis, nonspecific ST-T wave changes. Micro: Microbiology 03/20/24 10:45 Blood Culture - Preliminary Blood SPECIMEN COLLECTED A&P Assessment and plan (1) Atrial fibrillation with RVR: Patient presents with A-fib with RVR Secondary to hypotension currently present amiodarone has been initiated Secondary to recent major ENT surgery with risk for bleeding will not anticoagulate currently. He reports he has been having occasional blood from his nose and at this point his risk for bleeding is too high. SCDs will be used for DVT prophylaxis. If blood pressure improves consider metoprolol Check magnesium, TSH Check echocardiogram (2) Hypotension: Patient with hypotension This is likely reflection of his rapid ventricular rate along with dehydration and acute kidney injury Monitor for improvement with treatment of dehydration with IV fluids and reducing heart rate. (3) Acute kidney injury: Patient with significant acute kidney injury Bladder scan to make sure no urinary retention Hydration Repeat creatinine tomorrow Check CK (4) Hypovolemia dehydration: Continue with aggressive hydration Plan Recent major ENT surgery with uvulopalatopharyngoplasty, nasal turbinate surgery, tonsillectomy, septoplasty. Continue IV antibiotics secondary to nasal packing. Other medical problems as listed in past medical history Full code SCDs for DVT prophylaxis. No pharmacological anticoagulation secondary to high risk for bleeding Protonix for GI prophylaxis Attestations 2 Medical Necessity Statement*: Will need greater than 2 midnight stay for evaluation and treatment of acute kidney injury, A-fib with RVR, hypotension. Critical Care Time: The high probability of a clinically significant, sudden or life threatening deterioration of the patient's [cardiac, renal, ENT] system(s) required my full and direct attention, intervention and personal management. The critical care time is as shown. This time is in addition to time spent performing any reported procedures but includes the following: [x] Data and vital sign review and interpretation [x] Patient assessment, examination and intervention [x] Documentation [x] Medication orders and management Critical Care Time (min): 52 Coding Level of Care Code Critical Care >/= 30 minutes Critical care time (in minutes): 52 The high probability of a clinically significant, sudden or life threatening deterioration, as referenced in this documentation, required my full and direct attention, intervention and personal management. The critical care time shown is in addition to time spent performing any reported separately billable procedures and includes the following: [x] Data and vital sign review and interpretation [x ] Patient assessment, examination and intervention [x] Medication orders and management [x] Patient/Family updates as able [x] Care Coordination and Documentation. Diagnoses Atrial fibrillation with RVR I48.91 Hypotension I95.9 Acute kidney injury N17.9 Hypovolemia dehydration E86.1
--- NOTE | 2024-03-20 12:27 | USCV_ITS ---
Isaias Hamlin Age: 43 Gender: M : 1980 Exam Date: 03/20/2024 14:15 Ordering Phys: Nathan Robin MD Technologist: CT Exam Location: [facility] [place]_ Indication: Afib BP: 106 / 66 HR: 97 Rhythm: Sinus Technical Quality: Adequate MEASUREMENTS (Male / Female) Normal Values 2D ECHO LVOT Diameter 2.4 cm LV Ejection Fraction MOD 2C 63.9 % LV Ejection Fraction 2C AL 64.5 % LA Diameter 3.6 cm RA Systolic Volume 4C AL 54.6 ml RA Systolic Volume 4C MOD 53.1 ml LA Sys Volume AL 46.0 cm cubed LA Sys Volume Index AL 20.2 cm cubed/m squared Aorta at Sinotubular Diameter 2.7 cm IVC Diameter 1.8 cm DOPPLER AV Peak Velocity 168.0 cm/s LVOT Peak Velocity 176.0 cm/s AV Area Cont Eq vti 5.7 cm squared AV Area Cont Eq pk 4.9 cm squared MV Peak Velocity 124.3 cm/s MV Area PHT 4.3 cm squared Mitral E to A Ratio 1.3 TV Peak Velocity 282.5 cm/s TR Peak Velocity 286.0 cm/s TR Peak Gradient 32.7 mmHg TV Peak E Velocity 101.0 cm/s PV Peak Velocity 119.0 cm/s FINDINGS Left Ventricle Left ventricle is normal size. LV systolic function is normal with EF of 55 to 60%. No regional wall motion abnormalities are seen. Right Ventricle Normal in size and function. Right Atrium Normal in size Left Atrium Normal in size. Mitral Valve Structurally normal mitral valve. Trace mitral regurgitation. Aortic Valve Structurally normal aortic valve. No significant stenosis or regurgitation. Tricuspid Valve Mild tricuspid regurgitation. RVSP is normal. Pulmonic Valve Not well-visualized Pericardium Normal Aorta Normal in size IVC Appears to be normal CONCLUSIONS LV systolic function is normal with EF of 55 to 60%. Trace mitral regurgitation. Mild tricuspid regurgitation Compared to prior echocardiogram from 2022, no significant changes are seen. Paul Slaughter MD (Electronically Signed) Final Date: 28 Mar 2024 22:24 S
--- NOTE | 2024-03-20 12:50 | ECG_ITS ---
[facility] Test Date: 2024-03-20 Pat Name: Isaias Hamlin Department: Room: ICU02 Gender: Male Agency Operator: : 1980 Requested By: Nathan Nicholson Order Number: [id number] [place] MD: Kym Lake M.D. Measurements Intervals [place] Rate: 109 P: 53 CA: 168 QRS: -28 QRSD: 92 T: 31 QT: 326 QTc: 440 Interpretive Statements SINUS TACHYCARDIA WITH OCCASIONAL VENTRICULAR PREMATURE COMPLEXES POSSIBLE LEFT ATRIAL ENLARGEMENT [-0.1mV P-WAVE IN V1/V2] BORDERLINE LEFT AXIS DEVIATION [QRS AXIS < -20] ABNORMAL RHYTHM ECG Compared to ECG 03/20/2024 09:33:04 Ventricular premature complex(es) now present Atrial fibrillation no longer present Electronically Signed On 03-21-2024 19:53:32 CDT by Kym Lake M.D. [id number]
[2024-03-20 12:58] LABS: Creatine Phosphokinase 49 U/L (39-308)
[2024-03-20 13:07] LABS: Magnesium 2.4 mg/dL (1.7-2.3); Thyroid Stimulating Hormone 1.09 uIU/mL (0.27-4.20)
[2024-03-20] MEDS: sodium chloride 0.9% 1,000 ML 150 ML IV ×2 (13:10→20:53)
--- NOTE | 2024-03-20 13:40 | PC.NURSE ---
Pre bladder emptying scan.
[2024-03-20] MEDS: HYDROmorphone 1 mg/mL INJ 1 mL 0.400000000000000022 MG IVP ×4 (13:48→20:52)
--- NOTE | 2024-03-20 13:55 | PC.NURSE ---
Post urination scan 110ml. He urinated 400ml. Dr Robin notified of bladder scans and urine amount.
[2024-03-20] MEDS: ceFAZolin 2,000 MG in sodium chloride 0.9% (plus) 50 ML 100 MG IV (18:39)
--- NOTE | 2024-03-20 19:50 | PC.NURSE ---
Shift summary: Pt rested in bed since his arrival to ICU. Sinus rhythm with occasional PVCs noted on monitor. Lungs sounds are clear to auscultation. Halitosis noted. He has complained of severe pain in his throat, he stated he hurt too bad to swallow. Hydromorphone admin for pain, it helped his rest briefly. Frequency reduced to every 2 hrs for better pain control. he has sipped the broths, he seems to prefer the warm liquids to the cold. he consumed less than half of each tray. he has urinated twice for a total of 800ml.
[2024-03-20] MEDS: LORazepam 1 mg Tablet PO (20:53)
[2024-03-21] VITALS (34 sets, daily range): BP systolic 115–177; BP diastolic 65–122; PULSE 72–101; RESP 11–23; TEMP 36.4–37.1; O2SAT 92–97
[2024-03-21] MEDS: oxyCODONE 5 mg IR Tab/Cap PO (00:09)
[2024-03-21] MEDS: HYDROmorphone 1 mg/mL INJ 1 mL 0.400000000000000022 MG IVP ×3 (00:49→05:31)
[2024-03-21] MEDS: sodium chloride 0.9% 1,000 ML 150 ML IV (02:58)
[2024-03-21] MEDS: ceFAZolin 2,000 MG in sodium chloride 0.9% (plus) 50 ML 100 MG IV ×3 (02:58→18:25)
[2024-03-21 07:02] LABS: Basophils % 0.2 %; Eosinophils # 0.1 10^3/uL (0.0-0.8); Eosinophils % 1.1 %; Hematocrit 45.5 % (37-53); Lymphocytes # 2.5 10^3/uL (0.8-4.8); Lymphocytes % 20.4 %; Mean Corpuscular HGB Conc 34.5 g/dL (30-55); Mean Corpuscular Hemoglobin 29.4 pg (27-33); Mean Corpuscular Volume 85.2 fl (82-101); Monocytes # 0.9 10^3/uL (0.2-0.9); Monocytes % 7.6 %; Neutrophils # 8.64 10^3/uL (1.8-7.7); Neutrophils % 70.1 %; Nucleated Red Blood Cells % 0 %; Platelet Count 203 10^3/cmm (157-399); Red Blood Count 5.34 10^6/uL (3.85-5.65); Red Cell Distribution Width 12.3 % (12.1-15.1); White Blood Count 12.33 10^3/uL (3.29-11.43)
[2024-03-21 07:16] LABS: Alanine Aminotransferase 12 U/L (0-41); Albumin Level 3.8 g/dL (3.5-5.2); Alkaline Phosphatase 67 U/L (40-130); Anion Gap 16.1 (5-19); Aspartate Amino Transferase 10 U/L (0-40); Blood Urea Nitrogen 15 mg/dL (6-20); Calcium 8.7 mg/dL (8.5-10.5); Carbon Dioxide 22 mmol/L (22-29); Chloride 104 mmol/L (98-107); Creatinine Clr Calc Pharmacy 150.9881; Globulin 3.3 g/dL (1.3-4.6); Glucose 93 mg/dL (65-115); Magnesium 1.9 mg/dL (1.7-2.3); Osmolality Calculated 287 mOsm/kg (285-295); Potassium 4.1 mmol/L (3.5-5.1); Sodium 138 mmol/L (136-145); Total Bilirubin 0.6 mg/dL (0.15-1.2); Total Protein 7.1 g/dL (6.6-8.7)
[2024-03-21] MEDS: morphine 4 mg/mL SDV 1 mL 2 MG IVP (08:00)
[2024-03-21] MEDS: pantoprazole 40 mg SDV IVP (09:59)
[2024-03-21] MEDS: magnesium sulfate premix 1 GM/100 ML PIGGYBACK IV (10:10)
[2024-03-21] MEDS: morphine 4 mg/mL SDV 1 mL IVP ×3 (11:18→20:05)
--- NOTE | 2024-03-21 11:23 | P.CONIM_ITS ---
Providers/Reason For Consult 2 Consulting Physician/Specialty*: Scot Johansen MD/otolaryngology Reason for Consult*: General concerns about postoperative symptoms and swallowing ability. Requesting Physician: Dr. Gage Attending Physician: Yoshi Gage Primary Care Provider: Delilah Murrieta MD History of Present Illness History of Present Illness Isaias Hamlin is a 43 year old male Who underwent septoplasty with turbinate reduction and tonsillectomy with uvulopalatopharyngoplasty 5 days ago. Admitted due to significant dehydration and associated findings and symptomatology. Patient in ICU for fluids and monitoring. Complaining of problems with swallowing and things seem to go up in the back of his nose. Especially pills. May need to have everything switched over to liquid medication. Medications/Allergies Home Medications Medication Instructions Recorded Confirmed Last Taken Type albuterol sulfate 90 mcg/actuation 2 inh inhalation Q4H PRN shortness 01/01/23 03/20/24 Unknown Rx aerosol inhaler of breath or wheezing #8.5 grams aspirin-caffeine 845 mg-65 mg oral 1 ea PO Q6H PRN Pain 07/27/23 03/20/24 Unknown History powder packet (BC Pain Relief) ascorbic acid (vitamin C) 500 mg 500 mg PO DAILY 10/19/23 03/20/24 03/19/24 History tablet (Vitamin C) escitalopram oxalate 10 mg tablet 10 mg PO QPM #30 tabs 01/06/24 03/20/24 03/19/24 Rx hydrochlorothiazide 25 mg tablet 25 mg PO QPM #30 tabs 01/06/24 03/20/24 03/19/24 Rx lorazepam 1 mg tablet (Ativan) 1 mg PO BID PRN anxiety #60 tabs 03/12/24 03/20/24 03/15/24 Rx cephalexin 500 mg capsule 500 mg PO TID 10 days #30 caps 03/16/24 03/20/24 03/19/24 Rx oxycodone-acetaminophen 5 mg-325 2 tab PO Q4-5H PRN pain 5 days #40 03/16/24 03/20/24 03/20/24 Rx mg tablet (Percocet) tabs lisinopril 40 mg tablet 20 mg PO DAILY 03/20/24 03/20/24 03/19/24 History omega-3 fatty acids 1,000 mg 1,000 mg PO DAILY 03/20/24 03/20/24 03/19/24 History capsule Allergies Allergy/AdvReac Type Severity Reaction Status Date / Time shellfish derived Allergy ALGY-Anaphy Verified 03/16/24 07:39 laxis Current Medications Generic Name Dose Route Start Last Admin Trade Name Freq PRN Reason Stop Dose Admin Hydromorphone HCl 0.4 mg 03/20/24 16:33 03/21/24 05:31 Hydromorphone 1 Mg/Ml Inj 1 Ml IVP 0.4 mg Q2H PRN Administration MODERATE TO SEVERE PAIN Sodium Chloride 1,000 mls @ 150 mls/hr 03/20/24 12:27 03/21/24 02:58 Sodium Chloride 0.9% IV 150 mls/hr .Q6H40M MALCOM Administration Cefazolin Sodium 2,000 mg/ 50 mls @ 100 mls/hr 03/20/24 19:00 03/21/24 04:04 Sodium Chloride IV Infused Q8H MALCOM Infusion Protocol Lorazepam 1 mg 03/20/24 20:22 03/20/24 20:53 Lorazepam 1 Mg Tablet PO 1 mg BID PRN Administration ANXIETY Oxycodone HCl 5 mg 03/20/24 23:18 03/21/24 00:09 Oxycodone 5 Mg Ir Tab/Cap PO 5 mg BID PRN Administration MODERATE PAIN Pantoprazole Sodium 40 mg 03/21/24 09:00 03/21/24 09:59 Pantoprazole 40 Mg Sdv IVP 40 mg DAILY MALCOM Administration PFSH Acute 2 PFSH: Medical History History of hypertension 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 Family History Denies family history of CAD (coronary artery disease) Anesthesia complication Bleeding disorder Social History Smoking and tobacco/nicotine status: current every day tobacco/nicotine user cigarettes Packs smoked per day: 1.5 Years cigarettes smoked: 18 Second hand smoke exposure: No Alcohol intake: unknown Substance/Drug Use: unknown Vitals/I&O/Wt Last Vital Signs Temp 98.8 F 03/21/24 10:00 Pulse 77 03/21/24 10:00 Resp 13 03/21/24 10:00 BP 177/107 03/21/24 10:00 Pulse Ox 96 03/21/24 10:00 O2 Del Method Room Air 03/21/24 10:00 03/20/24 03/21/24 03/21/24 22:59 06:59 14:59 Intake Total 1460 / 4660 962.5 / 5622.5 100 / 100 Output Total 400 / 800 1550 / 2350 Balance 1060 / 3860 -587.5 / 3272.5 100 / 100 Weight last 48 hrs Weight 232 lb 8 oz Weight 224 lb 12.8 oz Weight 215 lb Physical Exam 2 Narrative: Nasal packing in place. Splints in place in nose. No sign of problems in that regard. Mouth and oropharynx shows postsurgical changes. Small amount of eschar present on raw edges. Sutures remain in place. Widely patent airway. No sign of bleeding or infection. Data 03/21/24 06:51 03/21/24 06:51 Micro: Microbiology 03/20/24 10:45 Blood Culture - Preliminary Blood NEGATIVE TO DATE 03/20/24 18:06 Blood Culture - Preliminary Blood SPECIMEN COLLECTED A&P Assessment and plan (1) Obstructive sleep apnea (adult) (pediatric): Assessment: Patient began this process with obstructive sleep apnea with deviated nasal septum and turbinate hypertrophy. Tonsillar hypertrophy and excessive length of soft palate and extreme hypertrophic uvula. He underwentSeptoplasty with turbinate reduction and tonsillectomy with UPPP 5 days ago. Progressing appropriately following surgery in regards to the surgical sites. No sign of infection or bleeding. Airway patent. However patient is having issues with swallowing. Not unusual in this situation. Dehydration coming under control with IV fluids. (2) Acquired deviated nasal septum: (3) Nasal turbinate hypertrophy: (4) Hypertrophy of uvula: Plan Plan: I expect the nasal packing and splints to be in place at least until Saturday. He is scheduled for an outpatient visit in the office to have that done. If he is still in the hospital then it can be done here in the hospital at that point. Patient is advised to sit up straight tilt his head back and do double swallowing when he tries to drink or eat or take pills. If the medication can be switched over to all liquids or IV that would be potentially better for him right now. Since his soft palate cannot elevate with the packing in place in the nose, and since he is splinting and not moving the tongue and palate appropriately for swallow, he is having the issues with things going up into the nose and the nasopharyngeal area. It cannot really go up into the nose because the packing is in place. That packing is actually extending back into the nasopharynx as well. Hopefully with counseling and different positioning with swallowing he will progress appropriately. Coding Level of Care Code 55981 Diagnoses Obstructive sleep apnea (adult) (pediatric) G47.33 Acquired deviated nasal septum J34.2 Nasal turbinate hypertrophy J34.3 Hypertrophy of uvula K13.79
[2024-03-21] MEDS: cloNIDine 0.1 mg/24 hr Patch 1 PATCH TRANSDERMA (11:34)
[2024-03-21] MEDS: ondansetron 2 mg/ML SDV 2 mL 4 MG IVP (17:13)
--- NOTE | 2024-03-21 20:59 | P.PN_ITS ---
Subjective 2 Subjective: Having difficulty swallowing saliva, keeps feeling like things are going up into his nose, even though he has packing. Having pain. This morning reported that he got a headache from Dilaudid, pain medication switched to morphine which he states helped him better. Vitals/I&O/Wt Last Vital Signs Temp 98.8 F 03/21/24 10:00 Pulse 88 03/21/24 18:00 Resp 23 H 03/21/24 20:05 BP 133/96 03/21/24 18:00 Pulse Ox 95 03/21/24 20:05 O2 Del Method Room Air 03/21/24 18:00 03/21/24 03/21/24 03/21/24 06:59 14:59 22:59 Intake Total 962.5 / 5622.5 270 / 270 50 / 320 Output Total 1550 / 2350 575 / 575 250 / 825 Balance -587.5 / 3272.5 -305 / -305 -200 / -505 Weight last 48 hrs Weight 105.46 kg Weight 101.968 kg Weight 97.522 kg Physical Exam 2 Const: COMMON NORMALS: patient oriented x3 and alert GENERAL APPEARANCE: c ooperative ORIENTATION/CONSCIOUSNESS: Yes awake HENMT: COMMON NORMALS: oropharynx normal Neck/C-Spine: COMMON NORMALS: no JVD Resp: COMMON NORMALS: normal respiratory effort and clear to auscultation bilaterally AUSCULTATION: clear to auscultation bilaterally Cardio: COMMON NORMALS: no JVD, regular rhythm, S1 normal heart sound present, S2 normal heart sound present and No murmurs present (Cardio) RHYTHM: regular rhythm HEART SOUNDS: S1 normal heart sound present and S2 normal heart sound present GI: COMMON NORMALS: Normal to inspection, nondistended, normoactive bowel sounds present, Soft to palpation and non-tender PALPATION: Yes Soft to palpation Extremity: COMMON NORMALS: no joint enlargement and no pedal edema Neuro: COMMON NORMALS: patient oriented x3 and moves all extremities S ENSORIUM/ORIENTATION: Yes alert Skin: COMMON NORMALS: no rashes or lesions noted GENERAL SKIN EXAM: no rashes or lesions noted Data 03/21/24 06:51 03/21/24 06:51 Micro: Microbiology 03/20/24 18:06 Blood Culture - Preliminary Blood NEGATIVE TO DATE 03/20/24 10:45 Blood Culture - Preliminary Blood NEGATIVE TO DATE A&P Assessment and plan (1) Dysphagia: Having dysphagia, keeps feeling that he is refluxing and he tries to swallow up into his nose, even though he is packing. Reviewed vitals, CBC, CMP, magnesium, reviewed ENT note, noted not elevating. Thought probably due to packing, splinting. This is expected to stay in place until at least Saturday. Discussed with speech therapist, he did not do well on bedside assessment, recommendation for continued NPO. Pending reassessment again tomorrow. For now continue NPO. Requiring parenteral and medications. He received IV hydromorphone for pain earlier this morning but felt that it gave him a headache. Stopped IV hydromorphone, started IV morphine. He got better relief with it. Continue as needed. Zofran as needed for nausea. (2) Hypertension: Parenteral medications needed at the moment, started on clonidine patch, reviewed blood pressure with improvement. Continue. (3) Atrial fibrillation with RVR: Reviewed vitals, A-fib with RVR improved, currently unable to tolerate oral medications. Continue amio drip. Resume oral medications once able. Reviewed magnesium, 1.9. Recheck magnesium. Patient presents with A-fib with RVR Secondary to recent major ENT surgery with risk for bleeding will not anticoagulate currently. He reports he has been having occasional blood from his nose and at this point his risk for bleeding is too high. SCDs will be used for DVT prophylaxis. If blood pressure improves consider metoprolol Check magnesium, TSH Check echocardiogram (4) Hypotension: Resolved, hypertensive today. Patient with hypotension This is likely reflection of his rapid ventricular rate along with dehydration and acute kidney injury Monitor for improvement with treatment of dehydration with IV fluids and reducing heart rate. (5) Acute kidney injury: Reviewed BUN, creatinine, potassium, SHIV resolved. Likely prerenal secondary to dehydration with him unable to tolerate oral intake. Decrease IVF Patient with significant acute kidney injury Bladder scan to make sure no urinary retention Hydration Repeat creatinine tomorrow Check CK (6) Hypovolemia dehydration: This morning concern for possible fluid overload. Was receiving 150 mL/h. Further IV hydration held, resume at lower rate for now, reassess. Monitor CORNELIO Plan Recent major ENT surgery with uvulopalatopharyngoplasty, nasal turbinate surgery, tonsillectomy, septoplasty. Continue IV antibiotics secondary to nasal packing. Other medical problems as listed in past medical history Full code SCDs for DVT prophylaxis. No pharmacological anticoagulation secondary to high risk for bleeding Protonix for GI prophylaxis Attestations 2 Medical Necessity Statement*: Continue admission for assessment management of dysphagia, inability to tolerate oral intake, oral medications, hypertension, A-fib with RVR requiring amiodarone infusion, status post UPPP. Diagnoses Dysphagia R13.10 Hypertension I10 Atrial fibrillation with RVR I48.91 Hypotension I95.9 Acute kidney injury N17.9 Hypovolemia dehydration E86.1
[2024-03-21] MEDS: LORazepam 2 mg/mL INJ 10 mL MDV 0.5 MG IVP (21:09)
[2024-03-21] MEDS: lactated ringers 1,000 ML 30 ML IV (21:37)
--- NOTE | 2024-03-21 22:16 | PC.NURSE ---
Ativan order change: Patient had PO ativan ordered but was NPO. Dr. Camara was contacted and gave telephone orders for 0.5mg ativan IVP BID PRN.
[2024-03-22] VITALS (20 sets, daily range): BP systolic 123–162; BP diastolic 45–120; PULSE 62–81; RESP 10–21; TEMP 36.6–37.3; O2SAT 84–98; BMI 30.4
[2024-03-22] MEDS: morphine 4 mg/mL SDV 1 mL IVP ×6 (01:08→22:07)
[2024-03-22] MEDS: ceFAZolin 2,000 MG in sodium chloride 0.9% (plus) 50 ML 100 MG IV ×3 (02:25→17:42)
[2024-03-22] MEDS: oxyCODONE 5 mg IR Tab/Cap PO (07:57)
[2024-03-22] MEDS: pantoprazole 40 mg SDV IVP (08:46)
--- NOTE | 2024-03-22 10:06 | PC.SLP ---
Dr. biswas with pt. Therapist will attempt to see later.
--- NOTE | 2024-03-22 10:57 | PC.SLP ---
Pt. had difficulty consuming one small sip of water. Reported it went to his nose. Grimacing noted during swallow. Pt uable to produce productive/hard cough. Spoke with DR. Saucedo keep NPO. Recommended MBS to
--- NOTE | 2024-03-22 12:58 | PC.NURSE ---
This nurse assumed care of pt at [id number] from MAGDALENE Porras.
--- NOTE | 2024-03-22 12:58 | PC.NURSE ---
Report called to medical surgical floor nurse Isaac, patient to go to room 236. Patient transferred on room air via wheelchair, patient up to chair in room with LR running at 30ml/hr in left upper IV. Patient has no requests or complaints at the time of transfer. All belongings with patient at bedside including phone and its correction officer supervisor. MS Nurse Isaac at bedside and brought paper chart to staff at front end drupal developer.
--- NOTE | 2024-03-22 17:26 | P.PN_ITS ---
Subjective 2 Subjective: Still having pain but it is slightly better at least when he does not try to swallow, when he does he is still hurting. He wanted to try some oral intake today, discussed with speech therapy, however, on attempt still not doing well as per patient and speech therapy - still not swallowing safely at this time. Vitals/I&O/Wt Last Vital Signs Temp 98.6 F 03/22/24 07:00 Pulse 76 03/22/24 12:00 Resp 12 03/22/24 12:00 BP 123/90 03/22/24 12:00 Pulse Ox 95 03/22/24 12:00 O2 Del Method Room Air 03/22/24 12:00 03/22/24 03/22/24 03/22/24 06:59 14:59 22:59 Intake Total 50 / 370 50 / 50 Output Total 700 / 1750 550 / 550 Balance -650 / -1380 -500 / -500 Weight last 48 hrs Weight 101.831 kg Weight 105.46 kg Physical Exam 2 Narrative: More Comfortable at rest. Sitting up in bed. Const: COMMON NORMALS: patient oriented x3 and alert GENERAL APPEARANCE: c ooperative ORIENTATION/CONSCIOUSNESS: Yes awake HENMT: COMMON NORMALS: oropharynx normal Neck/C-Spine: COMMON NORMALS: no JVD Resp: COMMON NORMALS: normal respiratory effort and clear to auscultation bilaterally AUSCULTATION: clear to auscultation bilaterally Cardio: COMMON NORMALS: no JVD, regular rhythm, S1 normal heart sound present, S2 normal heart sound present and No murmurs present (Cardio) RHYTHM: regular rhythm HEART SOUNDS: S1 normal heart sound present and S2 normal heart sound present GI: COMMON NORMALS: Normal to inspection, nondistended, normoactive bowel sounds present, Soft to palpation and non-tender PALPATION: Yes Soft to palpation Extremity: COMMON NORMALS: no joint enlargement and no pedal edema Neuro: COMMON NORMALS: patient oriented x3 and moves all extremities S ENSORIUM/ORIENTATION: Yes alert Skin: COMMON NORMALS: no rashes or lesions noted GENERAL SKIN EXAM: no rashes or lesions noted Data 03/21/24 06:51 03/21/24 06:51 Micro: Microbiology 03/20/24 18:06 Blood Culture - Preliminary Blood NEGATIVE TO DATE A&P Assessment and plan (1) Dysphagia: Today is doing slightly better, not in as much pain when he is at rest, but is still hurting when he swallowing. Wanted to try some oral intake, discussed with speech therapy, on bedside assessment unfortunately still not swallowing safely. MBS is recommended. Requested. Otherwise continue n.p.o. for now. Once he is able to tolerate oral intake from ENT perspective he may discharge with follow-up. Having dysphagia, keeps feeling that he is refluxing and he tries to swallow up into his nose, even though he is packing. Reviewed vitals, CBC, CMP, magnesium, reviewed ENT note, noted not elevating. Thought probably due to packing, splinting. This is expected to stay in place until at least Saturday. Discussed with speech therapist, he did not do well on bedside assessment, recommendation for continued NPO. Pending reassessment again tomorrow. For now continue NPO. Requiring parenteral and medications. He received IV hydromorphone for pain earlier this morning but felt that it gave him a headache. Stopped IV hydromorphone, started IV morphine. He got better relief with it. Continue as needed. Zofran as needed for nausea. (2) Hypertension: Reviewed vitals. Blood pressure looking better. 123/90. Continue clonidine patch. Heart rate 76. Parenteral medications needed at the moment, started on clonidine patch, reviewed blood pressure with improvement. Continue. (3) Atrial fibrillation with RVR: Has not received amiodarone. Discontinue amiodarone drip. Can transfer to medical surgical floor. Heart rates improved with overall gradual recovery, clonidine. Currently increased risk of bleeding for anticoagulation. Continue telemetry monitoring. Reviewed echocardiogram, it has been taken, not yet read. Follow-up. Patient presents with A-fib with RVR Secondary to recent major ENT surgery with risk for bleeding will not anticoagulate currently. He reports he has been having occasional blood from his nose and at this point his risk for bleeding is too high. SCDs will be used for DVT prophylaxis. If blood pressure improves consider metoprolol (4) Hypotension: Resolved, hypertensive today. Patient with hypotension This is likely reflection of his rapid ventricular rate along with dehydration and acute kidney injury Monitor for improvement with treatment of dehydration with IV fluids and reducing heart rate. (5) Acute kidney injury: Reviewed BUN, creatinine, potassium, SHIV resolved. Likely prerenal secondary to dehydration with him unable to tolerate oral intake. Decrease IVF Patient with significant acute kidney injury Bladder scan to make sure no urinary retention Hydration Repeat creatinine tomorrow Check CK (6) Hypovolemia dehydration: This morning concern for possible fluid overload. Was receiving 150 mL/h. Further IV hydration held, resume at lower rate for now, reassess. Monitor CORNELIO Plan Recent major ENT surgery with uvulopalatopharyngoplasty, nasal turbinate surgery, tonsillectomy, septoplasty. Continue IV antibiotics secondary to nasal packing. Other medical problems as listed in past medical history Full code SCDs for DVT prophylaxis. No pharmacological anticoagulation secondary to high risk for bleeding Protonix for GI prophylaxis Attestations 2 Medical Necessity Statement*: Continue admission for assessment management of dysphagia, inability to tolerate oral intake, oral medications, hypertension, A-fib with RVR requiring amiodarone infusion, status post UPPP. Diagnoses Dysphagia R13.10 Hypertension I10 Atrial fibrillation with RVR I48.91 Hypotension I95.9 Acute kidney injury N17.9 Hypovolemia dehydration E86.1
[2024-03-22] MEDS: lactated ringers 1,000 ML 30 ML IV (22:08)
[2024-03-23] VITALS (8 sets, daily range): BP systolic 125–142; BP diastolic 82–92; PULSE 65–75; RESP 18; TEMP 36.4–36.8; O2SAT 91–96; BMI 30.2
[2024-03-23] MEDS: LORazepam 2 mg/mL INJ 10 mL MDV 0.5 MG IVP (00:57)
[2024-03-23] MEDS: ceFAZolin 2,000 MG in sodium chloride 0.9% (plus) 50 ML 100 MG IV ×2 (02:52→11:16)
[2024-03-23] MEDS: morphine 4 mg/mL SDV 1 mL IVP ×3 (03:29→14:15)
[2024-03-23 06:20] LABS: Basophils % 0.2 %; Eosinophils # 0.2 10^3/uL (0.0-0.8); Eosinophils % 1.5 %; Lymphocytes # 2.3 10^3/uL (0.8-4.8); Lymphocytes % 21.2 %; Mean Corpuscular HGB Conc 34.2 g/dL (30-55); Mean Corpuscular Volume 84.8 fl (82-101); Mean Platelet Volume 10.1 fL (7.4-10.4); Monocytes # 0.9 10^3/uL (0.2-0.9); Neutrophils # 7.43 10^3/uL (1.8-7.7); Neutrophils % 68.7 %; Nucleated Red Blood Cells % 0 %; Platelet Count 220 10^3/cmm (157-399); Red Blood Count 5.07 10^6/uL (3.85-5.65); Red Cell Distribution Width 12.3 % (12.1-15.1); White Blood Count 10.81 10^3/uL (3.29-11.43)
[2024-03-23 06:42] LABS: Anion Gap 16.1 (5-19); Blood Urea Nitrogen 15 mg/dL (6-20); Calcium 8.7 mg/dL (8.5-10.5); Carbon Dioxide 23 mmol/L (22-29); Chloride 105 mmol/L (98-107); Creatinine Clr Calc Pharmacy 169.7352; Glomerular Filtration Rate 123.7 mL/min (90-130); Glucose 96 mg/dL (65-115); Osmolality Calculated 291 mOsm/kg (285-295); Potassium 4.1 mmol/L (3.5-5.1); Sodium 140 mmol/L (136-145)
--- NOTE | 2024-03-23 08:30 | FL_ITS ---
WS: [id number] FL barium swallow modifd [id number] REASON FOR EXAM: Oropharyngeal dysphagia FLUOROSCOPY TIME: 2min [id number] # OF SPOT FILMS: 0 FINDINGS: Examination was supervised by the speech therapy department. The patient was examined in the sitting upright lateral position. Multiple swallows of varying consistency barium were monitored fluoroscopically and video recorded. The speech therapy department will render a detailed report describing the swallowing. FL/FL barium swallow modifd [id number] IMPRESSION: Modified barium swallow as above.
--- NOTE | 2024-03-23 09:07 | PC.CHAP ---
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 [] Patient/Family/Request visit [] Outpatient visit [] Follow-up visit [] Physician referral [] Code/Alert [x] Routine visit [] Staff referral [] Actively dying [] Patient sleeping [] Family support [] [] Out of room [] Palliative care [] [] Receiving care in room [] Pre-surgical visit [] Trauma [] Long length of stay [] ICU visit [] Other: Relational/Emotional Strength [] Patient feels connected with others/family/visitors/staff [] Distress [] Loneliness/isolation [] Abandonment Spirituality of Patient [x] Person of Yesenia [] Attends Sikhism of their Yesenia [x] Believes in Prayer [] Reads Bible or Uatsdin materials [] There are Spiritual issues to be addressed Progressive [employer] Interventions [x] Prayer [x] Active listening [] Non-anxious presence [] Spiritual/emotional support [] Crisis/trauma care [] Spiritual counseling [] Bereavement support [] Provided bereavement packet [x] Provided Bible/devotional materials [] Provided toy/stuffed animal, coloring book to patient or family member [] Provided Communion [] Anointing/[place] [] Salvation [x] Completed spiritual assessment [] Other: Impact on Illness or Injury [] Angry [] Fearful [] Anxious [] Often cries [] Exhaustion [] Unable to work [] Unable to attend restorationism [] Unable to walk/stand [] Unable to read [] Unable to drive [] Unable to eat/drink [] Unable to sleep [] Unable to be with family [] Patient intubated [] Other: Summary Time spent with patient 5 min
[2024-03-23] MEDS: pantoprazole 40 mg SDV IVP (09:40)
--- NOTE | 2024-03-23 14:22 | PM.DCS ---
Discharge Providers Date of Admission: 03/20/24 11:53 Date of Discharge: March 23, 2024 Attending Provider at Admission: Nathan Robin MD Attending Provider at Discharge: Ed Lozano MD Consults: ENT: Dr. Johansen Primary Care Provider: Delilah Murrieta MD Diagnoses at Discharge Discharge Diagnosis (1) Dysphagia: Status: Acute (2) Hypertension: Status: Acute (3) Atrial fibrillation with RVR: Status: Acute (4) Hypotension: Status: Acute (5) Acute kidney injury: Status: Acute (6) Hypovolemia dehydration: Status: Acute Reason for Visit Reason for Visit: Low blood pressure Brief History: History as per HPI: Isaias Hamlin is a 43 year old male recently undergoing ENT surgery on March 16 with septoplasty, bilateral inferior turbinate resection, tonsillectomy and uvulopalatopharyngoplasty. No obvious complications with surgery, and patient was able to go home the same day. He reports at home he has not been able to eat and drink. He has had decreased urine output. He has not been able to take pain medication or antibiotics adequately. He reports he is short of breath. He denies any history of cardiac issues or atrial fibrillation. He reports no drug or alcohol use. Besides atrial fibrillation with rapid ventricular rate, low blood pressure was noted in the emergency department. He does not believe he has had any fever at home. He has received Ancef, 2 L of isotonic fluids, nausea medicine, pain medicine, and amiodarone is being initiated in the emergency department. Hospital Course Hospital Course Patient was admitted to the hospital further evaluation and management of hypotension and acute kidney injury in setting of poor oral intake secondary to recent uvulopalatopharyngoplasty and difficult to swallow. On admission patient also found to be in A-fib with RVR will refer to normalities. He was started on IV hydration with which his hypotension, acute kidney injury, rectal abnormality and A-fib gradually resolved. ENT was consulted. Patient continued to have poor oral intake with concerns for dysphagia. He underwent modified barium swallow and speech therapy evaluation. As per speech therapy evaluation patient is able to tolerate different consistency of food but is unable to do so because of pain. Discussed in detail with the ENT who advised patient to have liquid diet going forward for next few weeks and to follow-up as an outpatient in the office on set appointment for removal of nasal packing. Discharge instructions were discussed in detail with the patient and he verbalized understanding. On admission patient did have SHIV for which his home dose of hydrochlorothiazide and lisinopril were withheld and was switched to amlodipine 10 mg oral daily. He is advised to check his blood pressures daily at home and maintain a blood pressure diary and follow-up with a primary care provider within next 1 week and with the ENT on set appointments. Physical Exam Narrative: More Comfortable at rest. Sitting up in bed. Const: COMMON NORMALS: patient oriented x3 and alert GENERAL APPEARANCE: cooperative ORIENTATION/CONSCIOUSNESS: Yes awake HENMT: COMMON NORMALS: oropharynx normal Neck/C-Spine: COMMON NORMALS: no JVD Resp: COMMON NORMALS: normal respiratory effort and clear to auscultation bilaterally AUSCULTATION: clear to auscultation bilaterally Cardio: COMMON NORMALS: no JVD, regular rhythm, S1 normal heart sound present, S2 normal heart sound present and No murmurs present (Cardio) RHYTHM: regular rhythm HEART SOUNDS: S1 normal heart sound present and S2 normal heart sound present GI: COMMON NORMALS: Normal to inspection, nondistended, normoactive bowel sounds present, Soft to palpation and non-tender PALPATION: Yes Soft to palpation Extremity: COMMON NORMALS: no joint enlargement and no pedal edema Neuro: COMMON NORMALS: patient oriented x3 and moves all extremities SENSORIUM/ORIENTATION: Yes alert Skin: COMMON NORMALS: no rashes or lesions noted GENERAL SKIN EXAM: no rashes or lesions noted Discharge Data Studies Completed and Pending Completed Studies During Hospitalization Category Date Time Status FL barium swallow modifd [id number] Routine Exams 03/23/24 08:30 Completed XR chest 1V 16575 Stat Exams 03/20/24 11:00 Completed Pending at discharge Category Date Time Status B12 [Vitamin B12] Routine Lab 03/23/24 05:26 Received Blood Culture Stat Lab 03/20/24 18:06 Results Complete Blood Count w/Auto AM LABS Lab 03/24/24 04:00 Ordered Complete Blood Count w/Auto AM LABS Lab 03/24/24 04:00 Ordered Complete Blood Count w/Auto AM LABS Lab 03/25/24 04:00 Ordered Comprehensive Metabolic Panel AM LABS Lab 03/24/24 04:00 Ordered Folate Level AM LABS Lab 03/24/24 04:00 Ordered Hemoglobin A1C AM LABS Lab 03/24/24 04:00 Ordered Lipid Profile w/VLDL Routine Lab 03/24/24 04:00 Ordered MAG [Magnesium] AM LABS Lab 03/24/24 04:00 Ordered MAG [Magnesium] AM LABS Lab 03/25/24 04:00 Ordered MAG [Magnesium] AM LABS Lab 03/26/24 04:00 Ordered TIBC [Total Iron Binding Capacity] Routine Lab 03/23/24 05:26 Received Thyroid Stimulating Hormone Stat Lab 03/23/24 05:26 Received CV. echo complete* [id number] Routine Ultrasound 03/20/24 12:27 Taken Radiology Impressions Chest X-Ray 03/20/24 11:00 IMPRESSION: No acute disease. Modified Barium Swallow 03/23/24 08:30 IMPRESSION: Modified barium swallow as above. Laboratory Results WBC 10.81 10^3/uL (3.29-11.43) 03/23/24 05:26 RBC 5.07 10^6/uL (3.85-5.65) 03/23/24 05:26 Hgb 14.70 g/dL (11.27-16.99) 03/23/24 05:26 Hct 43.0 % (37-53) 03/23/24 05:26 MCV 84.8 fl (82-101) 03/23/24 05:26 MCH 29.0 pg (27-33) 03/23/24 05:26 MCHC 34.2 g/dL (30-55) 03/23/24 05:26 RDW 12.3 % (12.1-15.1) 03/23/24 05:26 Plt Count 220 10^3/cmm (157-399) 03/23/24 05:26 MPV 10.1 fL (7.4-10.4) 03/23/24 05:26 Neut % (Auto) 68.7 % 03/23/24 05:26 Lymph % (Auto) 21.2 % 03/23/24 05:26 [place] % (Auto) 8.0 % 03/23/24 05:26 Eos % (Auto) 1.5 % 03/23/24 05:26 Baso % (Auto) 0.2 % 03/23/24 05:26 Neut # (Auto) 7.43 10^3/uL (1.8-7.7) 03/23/24 05:26 Lymph # (Auto) 2.3 10^3/uL (0.8-4.8) 03/23/24 05:26 [place] # (Auto) 0.9 10^3/uL (0.2-0.9) 03/23/24 05:26 Eos # (Auto) 0.2 10^3/uL (0.0-0.8) 03/23/24 05:26 Baso # (Auto) 0.0 10^3/uL (0.0-0.1) 03/23/24 05:26 Nucleated RBC % (auto) 0 % 03/23/24 05:26 Nucleated RBCs # 0.0 /100WBC 03/23/24 05:26 Sodium 140 mmol/L (136-145) 03/23/24 05:26 Potassium 4.1 mmol/L (3.5-5.1) 03/23/24 05:26 Chloride 105 mmol/L (98-107) 03/23/24 05:26 Carbon Dioxide 23 mmol/L (22-29) 03/23/24 05:26 Anion Gap 16.1 (5-19) 03/23/24 05:26 BUN 15 mg/dL (6-20) 03/23/24 05:26 Creatinine 0.7 mg/dL (0.7-1.2) 03/23/24 05:26 GFR Calculation 123.7 mL/min (90-130) 03/23/24 05:26 Glucose 96 mg/dL (65-115) 03/23/24 05:26 Calculated Osmolality 291 mOsm/kg (285-295) 03/23/24 05:26 Lactic Acid 1.5 mmol/L (0.5-2.2) 03/20/24 10:45 Calcium 8.7 mg/dL (8.5-10.5) 03/23/24 05:26 Magnesium 2.0 mg/dL (1.7-2.3) 03/23/24 05:26 Total Bilirubin 0.6 mg/dL (0.15-1.2) 03/21/24 06:51 AST 10 U/L (0-40) 03/21/24 06:51 ALT 12 U/L (0-41) 03/21/24 06:51 Alkaline Phosphatase 67 U/L (40-130) 03/21/24 06:51 Creatine Kinase 49 U/L (39-308) 03/20/24 09:50 Total Protein 7.1 g/dL (6.6-8.7) 03/21/24 06:51 Albumin 3.8 g/dL (3.5-5.2) 03/21/24 06:51 Globulin 3.3 g/dL (1.3-4.6) 03/21/24 06:51 TSH 1.09 uIU/mL (0.27-4.20) 03/20/24 09:50 Urine Color Yellow (Yellow) 03/20/24 09:25 Urine Appearance Cloudy (CLEAR) A 03/20/24 09:25 Urine pH 5 (5-7) 03/20/24 09:25 Ur Specific [place] 1.025 (1.005-1.030) 03/20/24 09:25 Urine Protein 1+ (Negative) H 03/20/24 09:25 Urine Glucose (UA) Norm (Normal) 03/20/24 09:25 Urine Ketones 1+ (Negative) H 03/20/24 09:25 Urine Blood 2+ (Negative) H 03/20/24 09:25 Urine Nitrate Negative (Negative) 03/20/24 09:25 Urine Bilirubin 1+ (Negative) H 03/20/24 09:25 Urine Urobilinogen Neg mg/dL (Negative) 03/20/24 09:25 Ur Leukocyte Esterase Trace (Negative) H 03/20/24 09:25 Urine RBC 0-4 /hpf (0-2) H 03/20/24 09:25 Urine WBC 0-4 /hpf (0-5) H 03/20/24 09:25 Ur Squamous Epith Cells 0-4 /hpf (0-5) H 03/20/24 09:25 Calcium Oxalate Crystal 0-4 /hpf H 03/20/24 09:25 Amorphous Sediment 3+ /hpf 03/20/24 09:25 Urine Bacteria None /hpf (NONE) 03/20/24 09:25 Vitals Last Vital Signs Temp 98.2 F 03/23/24 11:28 Pulse 75 03/23/24 11:28 Resp 18 03/23/24 14:15 BP 131/86 03/23/24 11:28 Pulse Ox 91 03/23/24 11:28 O2 Del Method Room Air 03/23/24 07:45 Discharge Plan Discharge Patient Disposition: Home Condition: Stable Prescriptions: New amlodipine 10 mg tablet 10 mg PO DAILY Qty: 30 0RF Continued escitalopram oxalate 10 mg tablet 10 mg PO QPM Qty: 30 3RF lorazepam [Ativan] 1 mg tablet 1 mg PO BID PRN (Reason: anxiety) Qty: 60 0RF BC Pain Relief 845-65 mg Powder In Packet 1 ea PO Q6H PRN (Reason: Pain) albuterol sulfate 90 mcg/actuation HFA aerosol inhaler 2 inh inhalation Q4H PRN (Reason: shortness of breath or wheezing) Qty: 8.5 0RF ascorbic acid (vitamin C) [Vitamin C] 500 mg Tablet 500 mg PO DAILY oxycodone-acetaminophen [Percocet] 5-325 mg tablet 2 tab PO Q4-5H PRN (Reason: pain) 5 Days Qty: 40 0RF cephalexin 500 mg capsule 500 mg PO TID 10 Days Qty: 30 0RF omega-3 fatty acids 1,000 mg Capsule 1,000 mg PO DAILY Discontinued hydrochlorothiazide 25 mg tablet 25 mg PO QPM Qty: 30 3RF lisinopril 40 mg tablet 20 mg PO DAILY Discharge Orders: Discharge Order (Routine); Ordered 03/23/24 Ordered By: Ed Lozano Referrals: Delilah Murrieta MD [Primary Care Provider] - 03/31/24 2:00 pm Discharge Diet: Full LIquid Discharge Activity: Resume usual activity and Increase activity as tolerated Patient Instructions: Atrial Fibrillation, Amlodipine (By mouth), Acute Kidney Injury (GEN), Opioid Safety Activity Restrictions/Additional Instructions: home dose of hydrochlorothiazide and lisinopril were withheld and was switched to amlodipine 10 mg oral daily. He is advised to check his blood pressures daily at home and maintain a blood pressure diary and follow-up with a primary care provider within next 1 week and with the ENT on set appointments. Discharge Attestations Time Spent in Discharge Care*: greater than 30 min Quality Metrics Clinical Quality Measures [ No reported AMI, CVA or VTE this stay] Coding Level of Care Code 32626 Total time (in minutes) for Discharge: 50 Diagnoses Dysphagia R13.10 Hypertension I10 Atrial fibrillation with RVR I48.91 Hypotension I95.9 Acute kidney injury N17.9 Hypovolemia dehydration E86.1
[2024-03-23 15:02] LABS: Iron 83 ug/dL (59-158); Total Iron Binding Capacity 276 mcg/dl; Unsaturated Iron Binding 193 ug/dL (112-347); Vitamin B12 958 pg/mL (232-1245)
== END 2024-03-23 15:44 | disposition home or self-care (01) | DRG 309 ==
LOC: ER 11:09 → ICU 11:54 → MEDSURG 03-22 12:58
PROVIDERS: Internal Medicine; Admitting Provider Internal Medicine; Emergency Provider Emergency Medicine; PCP Family Medicine; Visit Provider Student in an Organized Health Care Education/Training Program
DX: I48.91 Unspecified atrial fibrillation (principal); N17.9 Acute kidney failure, unspecified; E86.0 Dehydration; R13.10 Dysphagia, unspecified; I10 Essential (primary) hypertension; I95.9 Hypotension, unspecified; F17.210 Nicotine dependence, cigarettes, uncomplicated; Z98.890 Other specified postprocedural states; G47.33 Obstructive sleep apnea (adult) (pediatric)
CPT/HCPCS: 36415; 51798; 71045; 74230; 80048; 80053; 81001; 82550; 82607; 83540; 83550; 83605; 83735; 84443; 85025; 87040; 92610; 92611; 93005; 93306; 96365; 96366; 96374; 96375; 96376; 99291; C9113; J0690; J1170; J2060; J2270; J2405; J3475; J7030; J7120

== ENCOUNTER 2024-07-14 06:59 | Emergency (ER) | payer SELFPAY ==
[2024-07-14 07:06] VITALS: BP 156/127; PULSE 90; RESP 18; TEMP 36.6; O2SAT 97; BMI 31.6
--- NOTE | 2024-07-14 07:08 | ED_ITS ---
HPI - Fall General: Chief Complaint: Back Pain/Injury Stated Complaint: low right side back pain Time Seen by Provider: 07/14/24 07:04 History of Present Illness: 43-year-old male presents emergency room complaint of right-sided low back pain. 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 He denies any dysuria urgency or frequency no abdominal pain no hematuria no history of renal stones Associated symptoms-after fall: Denies abdominal pain, chest pain or neck pain Related Data Home Medications Medication Instructions Recorded Confirmed aspirin-caffeine 845 mg-65 mg oral 1 ea PO Q6H PRN Pain 07/27/23 07/14/24 powder packet (BC Pain Relief) ascorbic acid (vitamin C) 500 mg 500 mg PO DAILY 10/19/23 07/14/24 tablet (Vitamin C) omega-3 fatty acids 1,000 mg 1,000 mg PO DAILY 03/20/24 07/14/24 capsule hydrochlorothiazide 25 mg tablet 25 mg PO QPM 07/14/24 07/14/24 Previous Rx's Medication Instructions Recorded albuterol sulfate 90 mcg/actuation 2 inh inhalation Q4H PRN shortness 01/01/23 aerosol inhaler of breath or wheezing #8.5 grams lisinopril 20 mg tablet 20 mg PO DAILY #30 tabs 04/13/24 lorazepam 1 mg tablet (Ativan) 1 mg PO BID PRN anxiety #60 tabs 05/18/24 diclofenac sodium 75 mg 75 mg PO Q12H PRN pain #20 tabs 07/14/24 tablet,delayed release prednisone 20 mg tablet 20 mg PO TID #15 tabs 07/14/24 tizanidine 4 mg tablet 4 mg PO Q6H PRN muscle spasticity 07/14/24 #20 tabs Allergies Allergy/AdvReac Type Severity Reaction Status Date / Time shellfish derived Allergy ALGY-Anaphy Verified 07/02/24 15:04 laxis Review of Systems Const: Denies: fever(s) or chills Card: Denies: chest pain Resp: Denies: dyspnea GI: Denies: abdominal pain : Denies: dysuria, urinary frequency or urinary urgency Musc: Reports: back pain; Denies: neck pain Skin/Breast: Denies: rash PFSH ED PFSH: Medical History Acquired deviated nasal septum History of hypertension 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 Surgical History History of uvulopalatopharyngoplasty Hx of tonsillectomy Hx of nasal septoplasty Family History Denies family history of CAD (coronary artery disease) Anesthesia complication Bleeding disorder Social History Smoking and tobacco/nicotine status: current every day tobacco/nicotine user Quit status (tobacco/nicotine): has quit using Year quit tobacco: 2023 Former quit date comment: 03/14/24 Second hand smoke exposure: No Alcohol intake: unknown Substance/Drug Use: unknown Physical Exam Const: COMMON NORMALS: no acute distress GENERAL APPEARANCE: cooperative ORIENTATION/CONSCIOUSNESS: Yes awake, Yes oriented to person, Yes oriented to place and Yes oriented to time HENMT: COMMON NORMALS: normocephalic, atraumatic and hearing grossly normal bilaterally HEAD & SCALP: normocephalic and atraumatic Resp: COMMON NORMALS: normal respiratory effort, No retractions, No use of accessory muscles and clear to auscultation bilaterally AUSCULTATION: clear to auscultation bilaterally Cardio: COMMON NORMALS: regular rate, regular rhythm and No murmurs present (Cardio) RATE: regular rate RHYTHM: regular rhythm GI: COMMON NORMALS: Soft to palpation and No hepatosplenomegaly present AUSCULTATION: Yes normoactive bowel sounds PALPATION: Yes Soft to palpation, No Tenderness to palpation present (GI), No Guarding due to palpation present (GI) and Yes No hepatosplenomegaly present Extremity: COMMON NORMALS: normal to inspection, capillary refill normal, no clubbing, cyanosis or edema, no calf tenderness and no pedal edema Neuro: SENSORIUM/ORIENTATION: Yes oriented to person, Yes oriented to place and Yes oriented to time OTHER: Deep tendon reflexes +2/4 at the patellar tendon bilaterally dorsum plantarflexion 5 5 straight leg raising test is negative Skin: COMMON NORMALS: no rashes or lesions noted GENERAL SKIN EXAM: no rashes or lesions noted Course Vital Signs: Vital signs: Vital Signs Temperature 97.8 F 07/14/24 07:06 Pulse Rate 81 07/14/24 10:28 Respiratory Rate 19 H 07/14/24 09:25 Blood Pressure 125/82 07/14/24 10:28 Pulse Oximetry 99 07/14/24 10:28 Oxygen Delivery Me thod Room Air 07/14/24 09:25 MDM - Fall Medical Decision Making Patient's symptoms are improved not completely resolved but he is feeling much better he still has no radicular back pain. Discharge patient home on steroid taper diclofenac and tizanidine follow-up with primary care if symptoms persist may need referral for PT or even advanced imaging potentially Medical Records I reviewed the patient's medical records. Lab Data I reviewed the patient's lab results. Laboratory Results Urine Color Yellow (Yellow) 07/14/24 07:45 Urine Appearance Clear (CLEAR) 07/14/24 07:45 Urine pH 5 (5-7) 07/14/24 07:45 Ur Specific [place] 1.025 (1.005-1.030) 07/14/24 07:45 Urine Protein Neg (Negative) 07/14/24 07:45 Urine Glucose (UA) Norm (Normal) 07/14/24 07:45 Urine Ketones Negative (Negative) 07/14/24 07:45 Urine Blood Neg (Negative) 07/14/24 07:45 Urine Nitrate Negative (Negative) 07/14/24 07:45 Urine Bilirubin Neg (Negative) 07/14/24 07:45 Urine Urobilinogen Norm mg/dL (Negative) 07/14/24 07:45 Ur Leukocyte Esterase Negative (Negative) 07/14/24 07:45 Amorphous Sediment Not Reportable 07/14/24 07:45 All radiology interpretation(s) finalized by discharge Discharge Plan Discharge Patient Disposition: Home Clinical Impression: Back pain without radiation Condition: Stable Prescriptions: New tizanidine 4 mg tablet 4 mg PO Q6H PRN (Reason: muscle spasticity) Qty: 20 0RF Rx Instructions: do not exceed 3 doses per 24 hrs prednisone 20 mg tablet 20 mg PO TID Qty: 15 0RF Rx Instructions: 1 p.o. 3 times daily x3 days, 1 p.o. twice daily x2 days, 1 p.o. daily x2 days diclofenac sodium 75 mg tablet,delayed release (DR/EC) 75 mg PO Q12H PRN (Reason: pain) Qty: 20 0RF No Action lisinopril 20 mg tablet 20 mg PO DAILY Qty: 30 4RF lorazepam [Ativan] 1 mg tablet 1 mg PO BID PRN (Reason: anxiety) Qty: 60 2RF BC Pain Relief 845-65 mg Powder In Packet 1 ea PO Q6H PRN (Reason: Pain) hydrochlorothiazide 25 mg tablet 25 mg PO QPM albuterol sulfate 90 mcg/actuation HFA aerosol inhaler 2 inh inhalation Q4H PRN (Reason: shortness of breath or wheezing) Qty: 8.5 0RF ascorbic acid (vitamin C) [Vitamin C] 500 mg Tablet 500 mg PO DAILY omega-3 fatty acids 1,000 mg Capsule 1,000 mg PO DAILY Discharge Orders: Discharge ED (Routine); Ordered 07/14/24 Ordered By: Drew Nichols Referrals: Delilah Murrieta MD [Primary Care Provider] - Discharge Diet: Usual diet Discharge Activity: Limit activity as instructed Patient Instructions: Acute Low Back Pain (ED), Opioid Safety, Pain Management Activity Restrictions/Additional Instructions: Thank you for choosing [facility] for your healthcare needs today. It is very important that you follow up as instructed or that you return to the Emergency Department should you have concerns or if your condition changes or worsens in any way. Coding Level of Care Code ED Green Coffee Blender for Edwige Huff
[2024-07-14] MEDS: orphenadrine 30 mg/mL Inj 2 mL 60 MG IM (07:35)
[2024-07-14] MEDS: morphine 4 mg/mL SDV 1 mL IVP (07:36)
[2024-07-14] MEDS: ketorolac 30 mg/mL INJ IVP (07:37)
[2024-07-14] MEDS: dexamethasone 10 mg/mL INJ IM (07:39)
[2024-07-14 07:42] VITALS: BP 144/94; PULSE 76; RESP 16; O2SAT 96
[2024-07-14 08:05] LABS: Charge for UA Resulting for Rev
[2024-07-14 08:10] LABS: Blood Urine Neg (Negative); Glucose Urine UA Norm (Normal); Ketones Urine Negative (Negative); Protein Urine Neg (Negative); Specific Gravity, Urine 1.025 (1.005-1.030); Urine Appearance Clear (CLEAR); Urine Color Yellow (Yellow); pH Urine 5 (5-7)
[2024-07-14 08:11] LABS: Bilirubin Urine Neg (Negative); Leukocyte Esterase Urine Negative (Negative); Nitrate Urine Negative (Negative); Urobilinogen Urine Norm (Negative)
[2024-07-14] MEDS: morphine 4 mg/mL SDV 1 mL 2 MG IVP ×2 (08:49→09:22)
[2024-07-14 09:22] VITALS: RESP 19
[2024-07-14 09:25] VITALS: BP 125/82; PULSE 77; RESP 19; O2SAT 96
[2024-07-14 10:28] VITALS: BP 125/82; PULSE 81; O2SAT 99
== END 2024-07-14 10:29 | disposition home or self-care (01) ==
PROVIDERS: Emergency Provider Family Medicine; PCP Family Medicine
DX: M54.50 Low back pain, unspecified (principal); I10 Essential (primary) hypertension; Z72.0 Tobacco use
CPT/HCPCS: 81003; 81015; 96372; 96374; 96375; 96376; 99284; J1100; J1885; J2270; J2360

== ENCOUNTER 2025-04-13 11:27 | Outpatient (CLI) | payer OTHER, SELFPAY ==
--- NOTE | 2025-04-13 11:30 | USR_ITS ---
PROCEDURE INFORMATION: Exam: US Duplex Bilateral Lower Extremity Arteries Exam date and time: 04/13/2025 11:36 AM Age: 44 years old Clinical indication: Pain; Leg, lower; Left; Additional info: Bilat leg pain TECHNIQUE: Imaging protocol: Real-time ultrasound scan of the arteries of the bilateral lower extremities with 2-D gamez scale, color Doppler flow and spectral waveform analysis. Images documented and saved. COMPARISON: US soft tissue/extremity [id number] 10/01/2018 5:50 PM FINDINGS: Right common femoral artery: No occlusion or significant stenosis. Normal waveform. Right superficial femoral artery: No occlusion or significant stenosis. Normal waveform. Right popliteal artery: No occlusion or significant stenosis. Normal waveform. Right calf/foot arteries: No occlusion or significant stenosis in the visualized arteries. Normal waveforms. Dorsalis pedis artery is patent. Right TORSTEN 1.0. Left common femoral artery: No occlusion or significant stenosis. Normal waveform. Left superficial femoral artery: No occlusion or significant stenosis. Normal waveform. Left popliteal artery: No occlusion or significant stenosis. Normal waveform. Left calf/foot arteries: No occlusion or significant stenosis in the visualized arteries. Normal waveforms. Dorsalis pedis artery is patent. Left TORSTEN 1.0. US/[place] [id number] IMPRESSION: No stenosis or occlusion.
== END 2025-04-13 11:28 | disposition home or self-care (01) ==
PROVIDERS: PCP Family Medicine; Visit Provider Internal Medicine
DX: M79.604 Pain in right leg (principal); M79.605 Pain in left leg
CPT/HCPCS: 93925

== ENCOUNTER 2025-05-04 09:27 | Outpatient (CLI) | payer OTHER, SELFPAY ==
[2025-05-04 09:41] VITALS: BMI 30.9
--- NOTE | 2025-05-04 09:43 | ECG_ITS ---
[facility] Pat Name: Isaias Hamlin Department: Room: Gender: Male Clinical Application Manager: : 1980 Requested By: Paul Slaughter Order Number: [id number] [place] MD: Kym Lake M.D. Interpretive Statements Lung unchanged pre/post procedure; Intraprocedure shortess of breath; Symptoms resoled by discharge PROCEDURE: At the baseline, the patient's blood pressure was 128/78 with a heart rate of 73. The baseline electrocardiogram showed normal sinus rhythm with normal ST-Ts.. The patient exercised for 7 minutes and 23 seconds on a standard Damian protocol. Patient attained a maximum heart rate of 153 beats per minute(86% of the maximum predicted heart rate) with a blood pressure at the peak exercise of 186/97 mm Hg. The EKG at the peak exercise revealed no significant EKG changes. Patient did not have any chest pain or any significant cardiac arrhythmias with the exercise During the recovery phase, there were no new changes. Blood pressure at the end of the recovery phase was 130/89 mm Hg with a heart rate of 101 per minute. CONCLUSION: 1. No significant EKG changes with the treadmill exercise 2. No exercise-induced chest pain or cardiac arrhythmia 3. Fair exercise tolerance, attained a maximum of 10.2 METs Electronically Signed On 05-05-2025 22:41:39 CDT by Kym Lake M.D. [email or web address]
--- NOTE | 2025-05-04 09:44 | NMCV_ITS ---
NM marisol perf SPECT r/s* [id number] Isaais Hamlin Age: 44 Gender: M : 1980 Exam Date: 05/04/2025 10:27 Ordering Phys: Paul Slaughter M.D ([email or web address]) Technologist: BELEN Lopez Exam Location: [facility] Indications: cp STRESS TEST Please see separate stress test report in [facility] for full findings IMAGE PROTOCOL Rest/Stress 1 Exercise Day Radiopharmaceutical Dose (mCi) Administration Site Administered by Rest: Tc-99m 10.7 IV BELEN Lopez Sestamibi Stress:Tc-99m 33 IV Sandra Garay HR PAYROLL COORDINATOR Sestamibi Rest: 04-May-2025 60 Discovery 630 Stress: 04-May-2025 30 Discovery 630 Radiopharmaceutical was injected at 85 % maximum heart rate. Images obtained in supine and prone position. SPECT RESULTS Technical Quality: Good Raw Data Analysis: Normal Image Corrections: No attenuation or motion correction applied Summed Stress Score: 0 Summed Rest Score: 1 Summed Difference Score: 0 PERFUSION FINDINGS Fairly uniform myocardial tracer uptake with no significant Perfusion normalities FUNCTIONAL RESULTS (calculated via Gated SPECT) Stress Image LV EF (%): 77 Stress EDV (mL):98 TID: 0.87 Stress ESV (mL):23 FUNCTIONAL FINDINGS: Segmental wall motion analysis revealing no gross wall motion abnormalities IMPRESSIONS 1. Myocardial perfusion imaging revealing uniform myocardial tracer uptake with no significant Perfusion abnormalities 2. Normal LV ejection fraction of 77%. 3. LV wall motion analysis revealing no gross wall motion abnormalities. 4. Normal LV volume Low probability for coronary ischemia, based on the above findings Dr Kym Lake MD FACC (Electronically Signed) Final Date: 04 May 2025 17:55 S
[2025-05-04 11:10] VITALS: BP 130/89; PULSE 101
== END 2025-05-04 09:28 | disposition home or self-care (01) ==
LOC: CDL 09:28
PROVIDERS: PCP Family Medicine; Visit Provider Internal Medicine
DX: R07.9 Chest pain, unspecified (principal)
CPT/HCPCS: 36415; 78452; 93017; A9500

== ENCOUNTER 2025-07-01 07:32 | Emergency (ER) | payer SELFPAY ==
--- OUTSIDE RECORDS SUMMARY | 2024-09-03 04:00 | XMS_ITS ---
Author Organization [facility] Address [address] [place] [address] Care Team Providers Care Wire Mill Rover Name Role Phone Ye Flores Primary Care Provider REASON FOR VISIT EST CARE Encounters Encounter Location Date Provider Diagnosis [facility] [address] [place] [id number] 09/03/2024 Ye Flores Plan Of Treatment No Information Progress Notes * MARINA WAKEFIELDOB:1980 ([age] yo M)Acc No.[id number]:09/03/2024 Progress Notes Patient: GISSELL WHITTAKER Provider: Lyn Flores MD :1980 A ge:43 Y S ex:Male Date:09/03/2024 Address:[address], [id number] Subjective: * Chief Complaints: * E ST CARE * Electronic signature of Cuba Flores MD on 07/01/2025 at 07:41 AM CDT Sign off status: Pending * Provider: Lyn Flores MD Date: Generated for Deborah lópez/Thong/eTransmitting on: 0 07/01/2025 07:41 AM CDT
--- NOTE | 2025-07-01 07:38 | XR_ITS ---
WS: [id number] XR foot LT min 3V* [id number] REASON FOR EXAM: trauma FINDINGS: No fracture or periosteal reaction. Joint spaces of the forefoot, midfoot, and hindfoot are intact and well preserved. Tiny radial opaque foreign bodies in the plantar surface underlying the phalanges of the fifth with tiny solitary cutaneous radiopaque lateral plantar at the level of the junction of the midfoot and forefoot. XR/XR foot LT min 3V* [id number] IMPRESSION: Tiny foreign bodies, likely chronic. No acute bone or joint abnormality.
--- OUTSIDE RECORDS SUMMARY | 2025-07-01 07:42 | XMS_ITS | Patient Health Record ---
Author Organization [facility] Address [address] [place] [address] Care Team Providers Care Integrated Logistics Programs Director Name Role Phone Ye Flores Primary Care Provider [phone] Reason For Referral No Information Plan Of Treatment No Information
--- OUTSIDE RECORDS SUMMARY | 2025-07-01 07:42 | XMS_ITS | Patient Health Record ---
Author Organization [facility] Physician Group Address [address] [facility] [address] [place] [address] Care Team Providers Care Sonography Technologist Name Role Phone Delilah Murrieta Primary Care Provider Dwaine Mckeon Unavailable [phone] Allergies No Known Allergies Results Component Value Reference Range Notes COMPREHENSIVE METABOLIC PANE L (CMP) Reviewed date:05/03/2025 05:17:51 PM Interpretation: Performing Lab: Notes/Report: COMPREHENSIVE METABOLIC PANEL GFR calculated using MDRD Formula. The eGFR calculation is only performed on patients 18 years and older to follow NKDEP guidelines. Revised: 09/07/2019, AMB GLUCOSE, (S) 122 65 - 110 mg/dl Bun 19 9 - 20 mg/dl Creatinine 0.8 0.8 - 1.5 mg/dl Sodium 139 137 - 145 mmol/L Potassium 4.5 3.6 - 5.0 mmol/L Chloride 102 98 - 107 mmol/L ENZYMATIC CO2 27 22 - 30 mmol/L CALCIUM 10.1 8.4 - 10.2 mg/dl Protein, Tot 8.00 6.30 - 8.20 g/dl ALBUMIN 4.7 3.5 - 5.0 g/dl AST(SGOT) 34 17 - 59 U/L ALT(SGPT) 34 0 - 50 ALKALINE PHOSPHATASE 79 38 - 126 U/L Bilirubin, Tot 0.6 0.2 - 1.3 mg/dl (NOTIFY DI ETICIAN IF ALBUMIN <2.4) AGE 44 GFR 106 GFR AFR-AMER 128 ANION GAP(K+) 14 0 - 21 mmol/L TESTING PERFORMED ON [facility] 5600 LIPID PROFILE Reviewed date:05/04/2025 09:18:52 AM Interpretation: Performing Lab: Notes/Report: LIPID PROFILE LDL REFERENCE RANGES ACCORDING TO NATIONAL CHOLESTEROL EDUCATION PROGRAM (NCEP) W/O 2 OR MORE CHD FACTORS <160 WITH 2 OR MORE CHD FACTORS <130 CORONARY HEART DISEASE <100 NOTE: CALCULATION OF LDL IS NOT APPROPRIATE FOR SPECIMENS WITH TRIGLYCERIDE LEVELS >400 MG/DL. HRS. FASTING 10-12 CHOLESTEROL 208 107 - 200 mg/dl TRIGLYCERIDES 183 35 - 160 mg/dl HDLC 31 35 - 100 MG/DL LDL (CALC) 140 TESTING PERFORMED ON [employer] 5600 TSH Reviewed date:05/03/2025 05:17:40 PM Interpretation: Performing Lab: Notes/Report: TSH 0.70 0.47 - 4.68 uIU/L CBC Reviewed date:05/03/2025 05:17:45 PM Interpretation: Performing Lab: Notes/Report: CBC AUTOMATED DIFFERENTIAL {CD] In a study of 784 healthy smokers, the upper limit of the reference range for WBC was 12.5. [facility] Proc, June 2005;80(8):6791-1035. Pediatric CBC Ranges 2016 [facility] Complete Blood Count Reference Values RBC Parameters (Conventional Units) Age Hgb(g/dL) Hct(%) RBC(x10^6/uL MCV(fl) MCH(pg) 0 - 3 Days 14.5-22.5 45-67 4.00-6.00 95-121 31-37 4 D - 6 Mo 10.0-20.5 30-66 2.70-6.30 74-126 25-40 7 Mo-12 yr 10.5-15-5 33-49 3.70-5.30 70-95 23-33 AGE MCHC RDW 0 - 3 Days 29-37 13-18 4 D - 6 Mo 28-38 11-18 7 Mo-12 yr 30-36 11.5-16 WBC and Differential (Conventional Units) Age WBC(x10^3/uL) SegPMN% BandPMN% Lymphs% Monos% 0 - 3 Days 9.0-35.0 32-62 0-18 19-29 5.0-7.0 4 D - 6 Mo 5.0-20.0 13-49 0-15 26-71 4.0-11.0 7 Mo-12 yr 4.5-17.0 15-61 0-11 28-76 3.0-6.0 Age Eos% Basos% NE #(K/uL) Ly#(K/uL) 0 - 3 Days 0-2 0-1 3.0-28.0 2.0-10.0 4 D - 6 Mo 0-2 0-1 1.0-13.0 2.0-12.0 7 Mo-12 yr 0-3 0-1 1.0-9.0 1.0-13.0 Platelets (Conventional Units) Age PLT MPV x10^3 uL (fl) All Ages 150-450 6.5-10.0 Revised:04/07/24. WBC 11.3 4.0 - 11.0 10^3/uL RbC 5.83 3.89 - 5.51 10^6/uL HGB 16.8 12.4 - 17.3 g/dl HCT 48.5 38.0 - 52.0 % PLT CT 230 150 - 375 10^3/uL MCV 83 80 - 98 fl MCH 28.8 27.0 - 34.0 pg MCHC 34.6 31.5 - 36.5 g/dl RdW 13.6 11.6 - 15.7 % mPV 8.50 6.70 - 10.72 fl % NEUTROPHILS 69 47 - 76 % % LYMPHOCYTES 23 12 - 44 % % MONOCYTES 6 1 - 13 % % EOSINOPHILS 2 0 - 6 % % BASOPHILS 1 0 - 2 % # NEUTROPHILS 7.8 1.5 - 7.1 10^3/uL # LYMPHOCYTE 2.6 1.2 - 3.9 10^3/uL # MONOCYTES 0.70 0.10 - 1.00 10^3/uL # EOSINOPHILS 0.20 0.00 - 0.70 10^3/uL # BASOPHIL 0.10 0.00 - 0.20 10^3/uL MICRO DIFF. NOT INDICATED TEST PERFORMED ON [employer] COMPREHENSIVE METABOLIC PANE L ([facility]) Reviewed date:12/22/2024 04:26:19 PM Interpretation: Performing Lab: Notes/Report: COMPREHENSIVE METABOLIC PANEL GFR calculated using MDRD Formula. The eGFR calculation is only performed on patients 18 years and older to follow NKDEP guidelines. Revised: 09/07/2019, AMB GLUCOSE, (S) 105 65 - 110 mg/dl Bun 15 9 - 20 mg/dl Creatinine 0.7 0.8 - 1.5 mg/dl Sodium 141 137 - 145 mmol/L Potassium 4.3 3.6 - 5.0 mmol/L Chloride 101 98 - 107 mmol/L ENZYMATIC CO2 29 22 - 30 mmol/L CALCIUM 9.8 8.4 - 10.2 mg/dl Protein, Tot 7.80 6.30 - 8.20 g/dl ALBUMIN 4.8 3.5 - 5.0 g/dl AST(SGOT) 32 17 - 59 U/L ALT(SGPT) 30 0 - 50 ALKALINE PHOSPHATASE 49 38 - 126 U/L Bilirubin, Tot 0.6 0.2 - 1.3 mg/dl (NOTIFY DI ETICIAN IF ALBUMIN <2.4) AGE 44 GFR 123 GFR AFR-AMER 149 ANION GAP(K+) 15 0 - 21 mmol/L TESTING PERFORMED ON [facility] 5600 LIPID PROFILE Reviewed date:12/24/2024 04:59:30 PM Interpretation: Performing Lab: Notes/Report: LIPID PROFILE LDL REFERENCE RANGES ACCORDING TO NATIONAL CHOLESTEROL EDUCATION PROGRAM (NCEP) W/O 2 OR MORE CHD FACTORS <160 WITH 2 OR MORE CHD FACTORS <130 CORONARY HEART DISEASE <100 NOTE: CALCULATION OF LDL IS NOT APPROPRIATE FOR SPECIMENS WITH TRIGLYCERIDE LEVELS >400 MG/DL. HRS. FASTING NON-FASTI CHOLESTEROL 185 107 - 200 mg/dl TRIGLYCERIDES 203 35 - 160 mg/dl HDLC 36 35 - 100 MG/DL LDL (CALC) 108 TESTING PERFORMED ON [employer] 5600 TSH Reviewed date:12/22/2024 04:25:54 PM Interpretation: Performing Lab: Notes/Report: TSH 1.02 0.47 - 4.68 uIU/L CBC Reviewed date:12/22/2024 04:26:11 PM Interpretation: Performing Lab: Notes/Report: CBC AUTOMATED DIFFERENTIAL {CD] In a study of 784 healthy smokers, the upper limit of the reference range for WBC was 12.5. [facility] Proc, June 2005;80(8):7907-3661. Pediatric CBC Ranges 2016 [facility] Complete Blood Count Reference Values RBC Parameters (Conventional Units) Age Hgb(g/dL) Hct(%) RBC(x10^6/uL MCV(fl) MCH(pg) 0 - 3 Days 14.5-22.5 45-67 4.00-6.00 95-121 31-37 4 D - 6 Mo 10.0-20.5 30-66 2.70-6.30 74-126 25-40 7 Mo-12 yr 10.5-15-5 33-49 3.70-5.30 70-95 23-33 AGE MCHC RDW 0 - 3 Days 29-37 13-18 4 D - 6 Mo 28-38 11-18 7 Mo-12 yr 30-36 11.5-16 WBC and Differential (Conventional Units) Age WBC(x10^3/uL) SegPMN% BandPMN% Lymphs% Monos% 0 - 3 Days 9.0-35.0 32-62 0-18 19-29 5.0-7.0 4 D - 6 Mo 5.0-20.0 13-49 0-15 26-71 4.0-11.0 7 Mo-12 yr 4.5-17.0 15-61 0-11 28-76 3.0-6.0 Age Eos% Basos% NE #(K/uL) Ly#(K/uL) 0 - 3 Days 0-2 0-1 3.0-28.0 2.0-10.0 4 D - 6 Mo 0-2 0-1 1.0-13.0 2.0-12.0 7 Mo-12 yr 0-3 0-1 1.0-9.0 1.0-13.0 Platelets (Conventional Units) Age PLT MPV x10^3 uL (fl) All Ages 150-450 6.5-10.0 Revised:04/07/24. WBC 8.2 4.0 - 11.0 10^3/uL RbC 5.36 3.89 - 5.51 10^6/uL HGB 15.9 12.4 - 17.3 g/dl HCT 45.7 38.0 - 52.0 % PLT CT 190 150 - 375 10^3/uL MCV 85 80 - 98 fl MCH 29.7 27.0 - 34.0 pg MCHC 34.8 31.5 - 36.5 g/dl RdW 13.3 11.6 - 15.7 % mPV 9.40 6.70 - 10.72 fl % NEUTROPHILS 54 47 - 76 % % LYMPHOCYTES 34 12 - 44 % % MONOCYTES 9 1 - 13 % % EOSINOPHILS 4 0 - 6 % % BASOPHILS 0 0 - 2 % # NEUTROPHILS 4.4 1.5 - 7.1 10^3/uL # LYMPHOCYTE 2.8 1.2 - 3.9 10^3/uL # MONOCYTES 0.70 0.10 - 1.00 10^3/uL # EOSINOPHILS 0.30 0.00 - 0.70 10^3/uL # BASOPHIL 0.00 0.00 - 0.20 10^3/uL MICRO DIFF. NOT INDICATED TEST PERFORMED ON [id number] Reason For Referral No Information Medications Medication SIG (Take, Route, Frequency, Duration) Notes Start Date End Date Status LORazepam 1 MG 1 tablet as needed O rally bid for 30 days 04/29/2025 Active Triamterene-HCTZ 37.5-25 MG 1 tablet in the morning Orally Once a day for 30 days 12/21/2024 Active Lisinopril 30 MG 1 tablet Orally Once a day for 30 days Active Lexapro 20 MG 1 tablet Orally Once a day for 30 days Active Albuterol Sulfate HFA 108 (90 Base) MCG/ACT 1 puff as needed Inhalation every 4 hrs for 30 days Active Crestor 5 MG 1 tablet Orally Once a day for 30 days 05/04/2025 Active Problems Problem Type SNOMED Code ICD Code Onset Dates Problem Status W/U Status Risk Notes Problem 05414252 Essential hypertension (I10) Active confirmed Problem 21212578 Anxiety, generalized (F41.1) Active confirmed Problem 36336143 Hyperlipidemia, unspecified hyperlipidemia type (E78.5) Active confirmed Problem 252697615 Mild intermitten t asthma without complication (J45.20) Active confirmed Vital Signs Heart Rate 91 /min 04/29/2025 Temperature 97.8 degrees Fahrenheit 04/29/2025 Respiratory Rate 16 /min 04/29/2025 Oximetry 95 % 04/29/2025 Blood pressure diastolic 97 mm Hg 04/29/2025 Height 70 in 04/29/2025 Blood pressure systolic 144 mm Hg 04/29/2025 Weight 236.9 lbs 04/29/2025 BMI 33.99 kg/m2 04/29/2025 Encounters Encounter Location Date Provider Diagnosis [place] [id number] [facility] [place] [id number] 09/15/2024 Delilah Murrieta Essential hypertensi on I10 ; Mild intermittent asthma without complication J45.20 and Anxiety, generalized F41.1 [facility] [address] [facility] [place] [id number] 12/21/2024 Delilah Murrieta Essential hypertensi on I10 ; Anxiety, generalized F41.1 and Mild intermittent asthma without complication J45.20 [facility] [address] [facility], [place] [id number] 03/30/2025 Dwaine Mckeon Anxiety, generalized F41.1 and Hyperlipidemia, unspecified hyperlipidemia type E78.5 [facility] [address] [facility], [place] [id number] 04/29/2025 Delilah Murrieta Essential hypertensi on I10 ; Hyperlipidemia, unspecified hyperlipidemia type E78.5 and Anxiety, generalized F41.1 [facility] [address] [facility], [place] [id number] 09/16/2024 Delilah Murrieta [facility] hospital [address] [facility] [place] [address] 09/29/2024 Delilah Murrieta [facility] [address] [facility], [place] [id number] 09/29/2024 Delilah Murrieta Essential hypertensi on I10 [facility] [address] [facility], [place] [id number] 09/29/2024 Delilah Murrieta Anxiety, generalized F41.1 [facility] [address] [facility], [place] [id number] 12/22/2024 Delilah Murrieta [facility] [address] [facility], [place] [id number] 12/28/2024 Delilah Murrieta [facility] [address] [facility], [place] [id number] 03/23/2025 Delilah Murrieta Essential hypertensi on I10 ; Anxiety, generalized F41.1 and Mild intermittent asthma without complication J45.20 [facility] [address] [facility], [place] [id number] 03/25/2025 Delilah Murrieta [facility] [address] [facility], [place] [id number] 03/25/2025 Delilah Murrieta Anxiety, generalized F41.1 [facility] [address] [facility], [place] [id number] 03/29/2025 Delilah Murrieta [facility] [address] [facility], [place] [id number] 05/04/2025 Delilah Murrieta Assessments Encounter Date Diagnosis (ICD Code) Assessment Notes Treatment Notes Treatment Clinical Notes Section Notes 09/15/2024 Mild intermittent asthma without complication (ICD-10 - J45.20) 09/29/2024 Essential hypertension (ICD-10 - I10) 09/29/2024 Anxiety, generalized (ICD-10 - F41.1) 12/21/2024 Essential hypertension (ICD-10 - I10) 09/15/2024 Essential hypertension (ICD-10 - I10) 03/23/2025 Essential hypertension (ICD-10 - I10) 03/25/2025 Anxiety, generalized (ICD-10 - F41.1) 03/30/2025 Anxiety, generalized (ICD-10 - F41.1) removed at bedtime from Rx and sent 1 month supply - pt to f/u in 1 month fasting for labs 03/30/2025 Hyperlipidemia, unspecified hyperlipidemia type (ICD-10 - E78.5) cont fish oil rtc in 1 month fasting for labs 04/29/2025 Essential hypertension (ICD-10 - I10) cjange lisinopril to 30 mg daily to try to get his blood pressure down. labs today. 04/29/2025 Hyperlipidemia, unspecified hyperlipidemia type (ICD-10 - E78.5) cont fish oil for now. get labs today. 03/23/2025 Anxiety, generalized (ICD-10 - F41.1) 09/15/2024 Anxiety, generalized (ICD-10 - F41.1) 12/21/2024 Anxiety, generalized (ICD-10 - F41.1) 12/21/2024 Mild intermittent asthma without complication (ICD-10 - J45.20) 03/23/2025 Mild intermittent asthma without complication (ICD-10 - J45.20) 04/29/2025 Anxiety, generalized (ICD-10 - F41.1) cont anxiety meds. they are stable for his daily adls. renew them today Plan Of Treatment Next Appt Details Provider Name:Delilah abernathy, 07/05/2025 09:00:00 AM, [address] [facility], [place], [id number], Insurance Providers Payer Name Payer Address Payer Phone Subscriber Number Group Number Insured Name Patient Relationship to Insured Coverage Start Date Coverage End Date Group Benefit Services [address] ASHWIN Perez [phone] [id number] Isaias Hamlin Self - patient is the insured Medical (General) History Medical History History ICD Code Asthma HTN Sleep apnea Surgical History Surgery Date(Month/Year) Uvulopalatopharyngoplasty Tonsillectomy adenoidectomy
--- OUTSIDE RECORDS SUMMARY | 2025-07-01 07:42 | XMS_ITS | Clinical Summary ---
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 Active hydroCHLOROthiaz yogesh 25 mg tablet Take 25 mg by mouth daily. Active Social History Tobacco Use Types Packs/Day Years Used Date Smoking Tobacco: Every Day Cigarettes Smokeless Tobacco: Never Tobacco Cessation:Ready to Q uit: Not Asked; Counseling Given: Not Answered Alcohol Use Standard Drinks/Week Comments Never 0 (1 standard drink = 0.6 oz pur e alcohol) Sex and Gender Information Value Date Recorded Sex Assigned at Not on file Legal Sex Male 9:31 AM CDT Gender Identity Not on file Sexual Orientation Not on file Last Filed Vital Signs Vital Sign Reading Time Taken Comments Blood Pressure 135/91 02/27/2023 11:00 AM CDT Pulse 63 02/27/2023 11:00 AM CDT Temperature 36.7 C (98.1 F) 02/27/2023 11:00 AM CDT Respiratory Rate 18 02/27/2023 11:00 AM CDT Oxygen Saturation 95% 02/27/2023 11:00 AM CDT Inhaled Oxygen Concentration - - Weight 94.3 kg (208 lb) 02/27/2023 9:36 AM CDT Height 185.4 cm (6' 1 ) 02/27/2023 9:36 AM CDT Body Mass Index 27.44 02/27/2023 9:36 AM CDT Plan of Treatment Health Maintenance Due Date Last Done Comments HPV VACCINES (1 - Male 3-dose series) 1996 DTAP/TDAP/TD VACCINES (1 - Tdap) 2000 HEPATITIS B VACCINES (1 of 3 - 19+ 3-dose series) 05/2001 INFLUENZA VACCINE (#1) 2025 Insurance HOME STATE [employer] PLAN MEDICAID
[2025-07-01 07:45] VITALS: BP 137/92; PULSE 114; RESP 15; TEMP 36.9; O2SAT 95; BMI 32.3
--- NOTE | 2025-07-01 08:09 | ED_ITS ---
HPI - Skin/Abscess/Foreign Bdy 2 General: Chief complaint: Skin/Abscess/Foreign Body Stated complaint: L foot pain, swelling, red, dropped a board Time Seen by Provider: 07/01/25 07:38 History of Present Illness: 44-year-old male presents emergency room with complaint of left lower leg pain. He scraped his leg with a board that he dropped at work he had on the top of his foot this was 3 days ago leg has become swollen reddened flamed exquisitely tender. He denies any other injuries unsure of his last tetanus Associated symptoms: Deny chills or fever(s) Related Data Home Medications ?Medication ?Instructions ?Recorded ?Confirmed ascorbic acid (vitamin C) 500 mg 500 mg PO DAILY 10/1904/01/25 tablet (Vitamin C) omega-3 fatty acids 1,000 mg 1,000 mg PO DAILY 4 04/01/25 capsule triamterene 50 mg capsule 25 mg PO DAILY 04/01/2507/19 Previous Rx's ?Medication ?Instructions ?Recorded albuterol sulfate 90 mcg/actuation 2 inh inhalation Q4 H PRN shortness 01/01/23 aerosol inhaler of breath or wheezing #8.5 g stacia lisinopril 20 mg tablet 20 mg PO DAILY #30 tabs 03/26 lorazepam 1 mg tablet (Ativan) 1 mg PO BID PRN anxiety #60 tabs 07/21/24 Allergies Allergy/AdvReac Type Severity Reaction Status Date / Time shellfish derived Allergy ALGY-Anaphy Verified 04/01/25 15:27 laxis Review of Systems 2 Const: Denies: fever(s) or chills Card: Denies: chest pain Resp: Denies: dyspnea GI: Denies: abdominal pain : Denies: dysuria, urinary frequency or urinary urgency Musc: Denies: neck pain or back pain Skin/Breast: Reports: erythema and skin tenderness PFSH ED 2 PFSH: Medical History Acquired deviated nasal septum History of hypertension 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 Surgical History History of uvulopalatopharyngoplasty Hx of tonsillectomy Hx of nasal septoplasty Family History Denies family history of CAD (coronary artery disease) Anesthesia complication Bleeding disorder Social History Smoking and tobacco/nicotine status: current every day tobacco/nicotine user Quit status (tobacco/nicotine): has quit using Year quit tobacco: 2023 Former quit date comment: 03/14/24 Second hand smoke exposure: No Alcohol intake: unknown Substance/Drug Use: former Date of last use: meth 4 year clean Physical Exam 2 Const: COMMON NORMALS: no acute distress GENERAL APPEARANCE: cooperative and comfortable ORIENTATION/CONSCIOUSNESS: Yes awake, Yes oriented to person, Yes oriented to place and Yes oriented to time HENMT: COMMON NORMALS: normocephalic, atraumatic and hearing grossly normal bilaterally HEAD & SCALP: normocephalic and atraumatic Resp: COMMON NORMALS: normal respiratory effort, No retractions, No use of accessory muscles and clear to auscultation bilaterally AUSCULTATION: clear to auscultation bilaterally Cardio: COMMON NORMALS: regular rate, regular rhythm and No murmurs present (Cardio) RATE: regular rate RHYTHM: regular rhythm Extremity: OTHER: Redness erythema of the left anterior tibia exquisitely tender swelling. There are few scratches mid tibia. Mild pain with palpation of the calf. Redness ends at the ankle. Neuro: SENSORIUM/ORIENTATION: Yes oriented to person, Yes oriented to place and Yes oriented to time Skin: COMMON NORMALS: no rashes or lesions noted GENERAL SKIN EXAM: no rashes or lesions noted Course 2 Vital Signs: Vital signs: Vital Signs Temperature 98.4 F 07/01/25 07:45 Pulse Rate 94 07/01/25 09:40 Respiratory Rate 15 07/01/25 07:45 Blood Pressure 114/82 07/01/25 09:40 Pulse Oximetry 95 07/01/25 09:40 Oxygen Delivery Me thod Room Air 07/01/25 07:45 MDM - Skin/Abscess/Foreign Bdy Medicial Decision Making Localized cellulitis. Tetanus updated. Will discharge home on Bactrim DS 1 p.o. twice daily x 7 days. Have him follow-up with primary care return if not improving Medical Records I reviewed the patient's medical records. Lab Data I reviewed the patient's lab results. 07/01/25 08:40 07/01/25 08:40 Radiology Impressions Foot X-Ray 07/01/25 07:38 IMPRESSION: Tiny foreign bodies, likely chronic. No acute bone or joint abnormality. Laboratory Results WBC 10.09 10^3/uL (3.29-11.43) 07/01/25 08:40 RBC 5.22 10^6/uL (3.85-5.65) 07/01/25 08:40 Hgb 14.80 g/dL (11.27-16.99) 07/01/25 08:40 Hct 43.5 % (37-53) 07/01/25 08:40 MCV 83.3 fl (82-101) 07/01/25 08:40 MCH 28.4 pg (27-33) 07/01/25 08:40 MCHC 34.0 g/dL (30-55) 07/01/25 08:40 RDW 12.9 % (12.1-15.1) 07/01/25 08:40 Plt Count 182 10^3/cmm (157-399) 07/01/25 08:40 MPV 10.0 fL (7.4-10.4) 07/01/25 08:40 Neut % (Auto) 73.9 % 07/01/25 08:40 Lymph % (Auto) 14.4 % 07/01/25 08:40 Coal % (Auto) 10.4 % 07/01/25 08:40 Eos % (Auto) 0.9 % 07/01/25 08:40 Baso % (Auto) 0.1 % 07/01/25 08:40 Neut # (Auto) 7.46 10^3/uL (1.8-7.7) 07/01/25 08:40 Lymph # (Auto) 1.5 10^3/uL (0.8-4.8) 07/01/25 08:40 Coal # (Auto) 1.1 10^3/uL (0.2-0.9) H 07/01/25 08:40 Eos # (Auto) 0.1 10^3/uL (0.0-0.8) 07/01/25 08:40 Baso # (Auto) 0.0 10^3/uL (0.0-0.1) 07/01/25 08:40 Nucleated RBC % (auto) 0 % 07/01/25 08:40 Nucleated RBCs # 0.0 /100WBC 07/01/25 08:40 Sodium 135 mmol/L (136-145) L 07/01/25 08:40 Potassium 3.7 mmol/L (3.5-5.1) 07/01/25 08:40 Chloride 97 mmol/L (98-107) L 07/01/25 08:40 Carbon Dioxide 27 mmol/L (22-29) 07/01/25 08:40 Anion Gap 14.7 (5-19) 07/01/25 08:40 BUN 16 mg/dL (6-20) 07/01/25 08:40 Creatinine 0.8 mg/dL (0.7-1.2) 07/01/25 08:40 GFR Calculation 105.5 mL/min (90-130) 07/01/25 08:40 Glucose 136 mg/dL (65-115) H 07/01/25 08:40 Calculated Osmolality 283 mOsm/kg (285-295) L 07/01/25 08:40 Lactic Acid 1.2 mmol/L (0.5-2.2) 07/01/25 08:40 Calcium 9.6 mg/dL (8.5-10.5) 07/01/25 08:40 Total Bilirubin 0.6 mg/dL (0.15-1.2) 07/01/25 08:40 AST 28 U/L (0-40) 07/01/25 08:40 ALT 32 U/L (0-41) 07/01/25 08:40 Alkaline Phosphatase 96 U/L (40-130) 07/01/25 08:40 Total Protein 7.3 g/dL (6.6-8.7) 07/01/25 08:40 Albumin 4.3 g/dL (3.5-5.2) 07/01/25 08:40 Globulin 3.0 g/dL (1.3-4.6) 07/01/25 08:40 All radiology interpretation(s) finalized by discharge Discharge Plan Discharge Patient Disposition: Home Clinical Impression: Cellulitis Condition: Stable Prescriptions: No Action lisinopril 20 mg tablet 20 mg PO DAILY Qty: 30 4RF triamterene 50 mg capsule 25 mg PO DAILY lorazepam [Ativan] 1 mg tablet 1 mg PO BID PRN (Reason: anxiety) Qty: 60 2RF albuterol sulfate 90 mcg/actuation HFA aerosol inhaler 2 inh inhalation Q4H PRN (Reason: shortness of breath or wheezing) Qty: 8.5 0RF ascorbic acid (vitamin C) [Vitamin C] 500 mg Tablet 500 mg PO DAILY omega-3 fatty acids 1,000 mg Capsule 1,000 mg PO DAILY Discharge Orders: Discharge ED (Routine); Ordered 07/01/25 Ordered By: Drew Nichols Referrals: Delilah Murrieta MD [Primary Care Provider, Family Practice] Discharge Diet: Usual diet Discharge Activity: Increase activity as tolerated Patient Instructions: Cellulitis (ED), Opioid Safety, Pain Management, Patient Portal & Pafnilo Instructions Activity Restrictions/Additional Instructions: Thank you for choosing [facility] for your healthcare needs today. It is very important that you follow up as instructed or that you return to the Emergency Department should you have concerns or if your condition changes or worsens in any way. You were seen in the emergency room with complaints of redness in your left leg. There is signs of cellulitis your white count is not elevated. Ultrasound of your leg did not show any blood clot. Recommend you start an oral antibiotic 1 pill twice a day for 7 days. 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
--- NOTE | 2025-07-01 08:12 | USCV_ITS ---
Isaias Hamlin Age: 44 Gender: M : 1980 Exam Date: 07/01/2025 08:26 Ordering Phys: Drew Nichols DO Technologist: OSIRIS Exam Location: [facility] Indication: LLE Pain/Swelling HISTORY: Lower extremity pain. Lower extremity swelling. PROCEDURES: Venous duplex imaging was performed in only the left lower extremity. The following venous structures were evaluated: common femoral vein, profunda vein, proximal portion of the greater saphenous vein, superficial femoral vein, and the popliteal vein. In addition, the posterior tibial and peroneal trunk were evaluated. Serial compression, augmentation maneuvers, and spectral Doppler flow evaluation were performed. FINDINGS: Normal 2-D Doppler and augmentation and compressibility throughout the lower extremity venous structures. Additional imaging through the proximal calf veins also reveals no thrombus. Limited evaluation of the greater saphenous vein is patent with no thrombus. CONCLUSIONS No DVT left lower extremity. Dr. Ruchi Smith DO (Electronically Signed) Final Date: 01 July 2025 11:06 S
[2025-07-01 08:48] LABS: Hematocrit 43.5 % (37-53); Hemoglobin 14.80 g/dL (11.27-16.99); Mean Corpuscular HGB Conc 34.0 g/dL (30-55); Mean Corpuscular Hemoglobin 28.4 pg (27-33); Mean Corpuscular Volume 83.3 fl (82-101); Nucleated Red Blood Cells % 0 %; Platelet Count 182 10^3/cmm (157-399); Red Blood Count 5.22 10^6/uL (3.85-5.65); White Blood Count 10.09 10^3/uL (3.29-11.43)
[2025-07-01] MEDS: tetanus-dipt-pertussis 0.5 mL SDV IM (08:57)
[2025-07-01] MEDS: cefTRIAXone 1,000 mg SDV 1000 MG IVP (08:57)
[2025-07-01 09:04] LABS: Lactic Sepsis W/Reflex 1.2 mmol/L (0.5-2.2)
--- NOTE | 2025-07-01 09:04 | ECG_ITS ---
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 Measurements Intervals [place] Rate: 92 P: 52 SD: 186 QRS: 0 QRSD: 112 T: 50 QT: 343 QTc: 425 Interpretive Statements SINUS RHYTHM MODERATE INTRAVENTRICULAR CONDUCTION DELAY [110+ ms QRS DURATION] ST ELEVATION, PROBABLY EARLY REPOLARIZATION [ST ELEVATION WITH NORMALLY INFLECTED T-WAVE] Compared to ECG 03/20/2024 12:50:49 Intraventricular conduction delay now present ST (T wave) deviation now present Early repolarization now present Sinus tachycardia no longer present Ventricular premature complex(es) no longer present Electronically Signed On 07-02-2025 13:53:02 CDT by Kym Lake M.D. [id number]
[2025-07-01 09:05] LABS: Alanine Aminotransferase 32 U/L (0-41); Albumin Level 4.3 g/dL (3.5-5.2); Alkaline Phosphatase 96 U/L (40-130); Anion Gap 14.7 (5-19); Aspartate Amino Transferase 28 U/L (0-40); Blood Urea Nitrogen 16 mg/dL (6-20); Calcium 9.6 mg/dL (8.5-10.5); Carbon Dioxide 27 mmol/L (22-29); Chloride 97 mmol/L (98-107); Creatinine Clr Calc Pharmacy 155.5907; Globulin 3.0 g/dL (1.3-4.6); Glucose 136 mg/dL (65-115); Osmolality Calculated 283 mOsm/kg (285-295); Potassium 3.7 mmol/L (3.5-5.1); Sodium 135 mmol/L (136-145); Total Protein 7.3 g/dL (6.6-8.7)
[2025-07-01] MEDS: morphine 4 mg/mL SDV 1 mL IVP (09:17)
[2025-07-01 09:39] VITALS: BP 114/82; PULSE 94; O2SAT 95
[2025-07-01 09:40] VITALS: BP 114/82; PULSE 94; O2SAT 95
== END 2025-07-01 10:00 | disposition home or self-care (01) ==
PROVIDERS: Emergency Provider Family Medicine; PCP Family Medicine
DX: L03.116 Cellulitis of left lower limb (principal); Z72.0 Tobacco use; I10 Essential (primary) hypertension
CPT/HCPCS: 73630; 80053; 83605; 85025; 87040; 90471; 90715; 93005; 93971; 96374; 96375; 99285; J0696; J2270

== ENCOUNTER 2025-08-19 11:33 | Emergency (ER) | payer SELFPAY ==
[2025-08-19 11:35] VITALS: BP 140/90; PULSE 95; RESP 16; TEMP 36.5; O2SAT 95
--- NOTE | 2025-08-19 11:38 | XR_ITS ---
WS: [id number] Exam: XR hand RT min 3V* [id number] Date/Time of Exam: 08/19/2025 11:38 AM Reason For Exam: fifth digit injury DLP: There is an avulsion fracture along the volar margin at the base of the fifth middle phalanx. Only slight separation at the fracture line. There is also a probable nondisplaced cortical fracture involving the lateral margin of the fifth metacarpal head. No other fractures of the RIGHT hand. Mild degenerative changes in the IP joints. No soft tissue foreign bodies. XR/XR hand RT min 3V* [id number] IMPRESSION: 1. Avulsion fracture along the volar margin at the base of the fifth middle pha lanx. 2. Probable nondisplaced cortical fracture involving the lateral margin of the head of the fifth metacarpal.
--- NOTE | 2025-08-19 11:43 | W.ED.WOUNDLC ---
HPI - Wound/Laceration General: Chief Complaint: Wound/Laceration Stated Complaint: Fell F hand Pinky finger cut Time Seen by Provider: 08/19/25 11:35 History of Present Illness: 44-year-old man who presents emergency room after he tripped and fell. He says he bent his pinky finger on his right hand backwards and has a laceration on the distal end of his finger just above the knuckle. No obvious deformity. Related Data Home Medications ?Medication ?Instructions ?Recorded ?Confirmed ascorbic acid (vitamin C) 500 mg 500 mg PO DAILY 10/19/23 04/01/25 tablet (Vitamin C) omega-3 fatty acids 1,000 mg 1,000 mg PO DAILY 03/20/24 04/01/25 capsule triamterene 50 mg capsule 25 mg PO DAILY 04/01/25 04/01/25 Previous Rx's ?Medication ?Instructions ?Recorded albuterol sulfate 90 mcg/actuation 2 inh inhalation Q4H PRN shortness 01/01/23 aerosol inhaler of breath or wheezing #8.5 grams lisinopril 20 mg tablet 20 mg PO DAILY #30 tabs 04/13/24 lorazepam 1 mg tablet (Ativan) 1 mg PO BID PRN anxiety #60 tabs 07/21/24 cefdinir 300 mg capsule 300 mg PO BID 7 days #14 caps 08/19/25 Allergies Allergy/AdvReac Type Severity Reaction Status Date / Time shellfish derived Allergy ALGY-Anaphy Verified 04/01/25 15:27 laxis Review of Systems Narrative: Constitutional symptoms: Negative except as documented in HPI. Skin symptoms: Negative except as documented in HPI. Eye symptoms: Negative except as documented in HPI. ENMT symptoms: Negative except as documented in HPI. Respiratory symptoms: Negative except as documented in HPI. Cardiovascular symptoms: Negative except as documented in HPI. Gastrointestinal symptoms: Negative except as documented in HPI. Genitourinary symptoms: Negative except as documented in HPI. Musculoskeletal symptoms: Negative except as documented in HPI. Neurologic symptoms: Negative except as documented in HPI. Psychiatric symptoms: Negative except as documented in HPI. Endocrine symptoms: Negative except as documented in HPI. 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 Surgical History History of uvulopalatopharyngoplasty Hx of tonsillectomy Hx of nasal septoplasty Family History Denies family history of CAD (coronary artery disease) Anesthesia complication Bleeding disorder Social History Smoking and tobacco/nicotine status: current every day tobacco/nicotine user Quit status (tobacco/nicotine): has quit using Year quit tobacco: 2023 Former quit date comment: 03/14/24 Second hand smoke exposure: No Alcohol intake: unknown Substance/Drug Use: former Date of last use: meth 4 year clean Physical Exam Narrative: EXAM NARRATIVE: General: Alert, no acute distress. Skin: warm and dry. 1.5 cm laceration running horizontally at the proximal end of the distal phalanx of the right fifth digit Head: Normocephalic Neck: Trachea midline Eye: Extraocular movements are intact. Ears, nose, mouth and throat: Oral mucosa moist Respiratory: Respirations are non-labored Musculoskeletal: Normal ROM, some pain with movement. Gastrointestinal: Abdomen does not appear distended Neurological: Alert and oriented, No focal neurological deficit observed. Psychiatric: Cooperative, appropriate mood & affect. Course Vital Signs: Vital signs: Vital Signs Temperature 97.7 F 08/19/25 11:35 Pulse Rate 95 08/19/25 11:35 Respiratory Rate 16 08/19/25 11:35 Blood Pressure 140/90 08/19/25 11:35 Pulse Oximetry 95 08/19/25 11:35 Oxygen Delivery Me thod Room Air 08/19/25 11:35 MDM - Wound/Laceration Medical Decision Making Medical decision making: Differential diagnosis including but not limited to and based on the above HPI, review of systems and physical exam: In this patient with a musculoskeletal extremity traumatic injury and x-ray is being ordered to rule out fractures and dislocations. Orders placed to evaluate differential diagnosis based on the above differential, HPI and physical exam X-ray of the right hand: Avulsion fracture along the volar margin at the base of the fifth middle phalanx. Probable nondisplaced cortical fracture involving the lateral margin of the head of the fifth metacarpal. This was reviewed and interpreted by myself the emergency room physician. I also reviewed the radiology report. I reviewed the patient's medical record. Patient had tetanus recently. Laceration repair procedure: Time: 1230 Confirmed patient, procedure, side, and site. Time out performed prior to procedure. Verbal consent was obtained by patient and/or responsible democrat. Indication: Laceration Location: Distal right fifth digit on the palmar side Length: 1.5 cm Description: Linear subcutaneous Anesthesia: 8 mL 1% lidocaine without epinephrine applied to the base of the finger for an effective digital block Area prepared by sterile field with Betadine. Soaked in Betadine and saline prior to suturing # 5, 4-0 sutures were utilized, simple, interrupted technique. Post procedure examination: Circulation, motor, sensory intact. Patient tolerated the procedure well. No complications, bleeding. Total time: 15 min. Pt advised to keep the area clean and dry, wash twice per day with antibacterial soap and water. Return to the ED or PCP in 7 days for suture removal. Reexamination: Patient remained stable. No increased work of breathing. No altered mental status. No focal motor deficits. Splint placed on finger. Wound is closed. Consultation: I spoke with Dr. Miller with orthopedics who recommends splinting and follow-up in clinic. Wound closure. Assessment and plan: Finger fracture Finger laceration ?Digital block, laceration repair, splint placed - Discharged home - Discussed plan with patient. Answered any questions. - Evaluation and treatment of this problem were appropriate in the emergency setting. Lab Data Radiology Impressions Hand X-Ray 08/19/25 11:38 IMPRESSION: 1. Avulsion fracture along the volar margin at the base of the fifth middle phalanx. 2. Probable nondisplaced cortical fracture involving the lateral margin of the head of the fifth metacarpal. All radiology interpretation(s) finalized by discharge Discharge Plan Discharge Patient Disposition: Home Clinical Impression: Laceration, Fracture of middle phalanx of finger of right hand Condition: Stable Prescriptions: New cefdinir 300 mg capsule 300 mg PO BID 7 Days Qty: 14 0RF No Action lisinopril 20 mg tablet 20 mg PO DAILY Qty: 30 4RF triamterene 50 mg capsule 25 mg PO DAILY lorazepam [Ativan] 1 mg tablet 1 mg PO BID PRN (Reason: anxiety) Qty: 60 2RF albuterol sulfate 90 mcg/actuation HFA aerosol inhaler 2 inh inhalation Q4H PRN (Reason: shortness of breath or wheezing) Qty: 8.5 0RF ascorbic acid (vitamin C) [Vitamin C] 500 mg Tablet 500 mg PO DAILY omega-3 fatty acids 1,000 mg Capsule 1,000 mg PO DAILY Discharge Orders: Discharge ED (Routine); Ordered 08/19/25 Ordered By: Ines Scanlon Referrals: Bienvenido Miller DO [Physician, Orthopedics] - 4-7 days Referral Note: Please call for follow-up appointment with orthopedics Delilah Murrieta MD [Primary Care Provider, [facility]] Discharge Diet: Usual diet Discharge Activity: Limit activity as instructed Patient Instructions: Opioid Safety, Pain Management, Patient Portal & Panfilo Instructions Activity Restrictions/Additional Instructions: Keep finger splinted at all times except when bathing and limit movement of the finger even then. Keep the area clean and dry, wash twice per day with antibacterial soap and water. Return to your primary provider or the emergency room in 7 days for suture removal. Avoid any prolonged submersion in water. Avoid all schilling water, pond water, streams or other untreated water. Thank you for choosing [facility] for your healthcare needs today. You have been screened and evaluated and felt safe for discharge. Health conditions do change or evolve sometimes and as such it is important that you follow up with your Primary Doctor to be re checked, 3-5 days is a general good time frame for follow up. You are always welcome to return to the ED for re assessment if your symptoms are worsening or you have new concerns Print Language: Greenlandic Coding Level of Care Code ED Business Relations Manager for Edwige Huff
--- NOTE | 2025-08-19 12:08 | PC.NURSE ---
LIDOCAINE SCANNED AND GIVEN TO PROVIDER FOR ADMINISTRATION.
[2025-08-19 13:15] VITALS: BP 108/71; PULSE 81; O2SAT 94
--- NOTE | 2025-08-20 09:43 | DCPLANNER ---
messaged ortho for er f/u
== END 2025-08-19 13:19 | disposition home or self-care (01) ==
PROVIDERS: Emergency Provider Emergency Medicine; PCP Family Medicine
DX: S62.626A Displaced fracture of middle phalanx of right little finger, initial encounter for closed fracture (principal); Z72.0 Tobacco use; W01.0XXA Fall on same level from slipping, tripping and stumbling without subsequent striking against object, initial encounter
CPT/HCPCS: 12041; 29130; 73130; 99283; J9999